=== PATIENT | female | born 1970 | race Hispanic/Latino ===

== ENCOUNTER 2016-06-23 09:40 | Inpatient (IN) | payer MEDICAID ==
[~2016-06-23] VITALS: Ht 167.6 cm; Wt 87.4 kg
[2016-06-23] VITALS (15 sets, daily range): BP systolic 116–156; BP diastolic 56–84; PULSE 84–123; RESP 13–24; O2SAT 88–95
[~2016-06-23 09:40] MED LIST: ALBU2.5V4 INHALATION; Cetirizine Hcl PO; FLUT1DIS5 IH; MONT10TA20 PO; PRE10 PO; PULM.25NEB IH; TRIA10.8 NS
[2016-06-23] MEDS ORDERED: Albuterol-Ipratropium 3 mL Inhalation Solution ONE (09:43)
--- NOTE | 2016-06-23 09:46 | ED.REPORT ---
HPI-Dyspnea / Wheezing Date of Service Jun 23, 2016 ED Provider: Dr. Lyles Pt is a 45 year old female with a hx of asthma presenting to the ED complaining of trouble breathing onset 5 days ago. Associated symptoms include clear and green sputum, cough, and wheezing. She denies fever or recent sick contacts. She reports that this is similar to her previous asthma exacerbations. Pt has hx of past intubation for asthma exacerbation. Nursing Notes Stated Complaint: ASTHMA ATTACK/SOB Chief Complaint: Asthma Exacerbation Nursing Notes Reviewed: Yes ([employer], meds not reconciled) Allergies: Coded Allergies: ibuprofen (Verified Allergy, Unknown, 10/17/15) morphine (Verified Allergy, Unknown, 03/12/13) budesonide (Verified Adverse Reaction, Intermediate, itching, 03/10/13) Scheduled ([Cetirizine Hcl]) 10 MG TABLET 10 MG PO HS Budesonide (Pulmicort) 0.25 Mg/2 Ml Nebu 0.125 MG IH BID Fluticasone/Salmeterol (Advair 500-50 Diskus) 1 Each Disk.w.dev 1 PUFF IH BID Montelukast (Singulair) 10 Mg Tablet 10 MG PO MORNING Prednisone (PredniSONE) 10 Mg Tablet 10 MG PO DAILY Scheduled PRN Albuterol Neb Soln (Albuterol Neb Soln) 2.5 Mg/3 Ml Vial.neb 2.5 MG INHALATION Q4H PRN PRN For Shortness of Breath Triamcinolone Acetonide (Nasacort) 10.8 Ml Bon Aqua 1 ML NS DAILY PRN PRN For Congestion General Time Seen by MD: 09:46 Chief Complaint Asthma attack Hx Obtained From: Patient Arrived By: Walk-in Sudden in Onset?: No Onset Occurred: 5 days ago Context of Onset: Asthma attack Symptom Duration: Since onset Severity: Current: Mild Severity: Maximum: Moderate Recent Healthcare: No recent doctor visit, No recent hospitalization Similar Sx Previous: Yes Past Medical History Past Medical History Notes: Last Admit for severe asthma October 16-2015 Past Medical History ho severe asthma ho of ICU admit w/respitory failure and prior intubation, ho lobar collapse requiring bronchoscopy on two seperate admissions Past Surgical History 1. Bilateral tubal ligation. Reports: Tubal ligation Smoking History Never Smoker Social History Alcohol Use: Denies alcohol use Drug Use: Denies drug use Other Social History: Good social support, , Local resident Ambulatory Status Independent Review of Systems Unable to Obtain ROS Patient condition (severe resp distress) Constitutional: Denies: Fever Respiratory: Reports: Prod cough, clear, Prod cough, green, Shortness of breath , Wheezing Complete sys rev & neg: except as marked. Physical Exam Initial Vital Signs Vital Signs (First) Date Time Temp Pulse Resp B/P Pulse Ox O2 Delivery O2 Flow Rate FiO2 06/23/16 09:47 36.5 84 24 156/81 93 06/23/16 09:59 Nasal Cannula 2 Initial VS: Reviewed, Vital signs abnormal (tachypneic, relative hypoxia) Head / Eyes: Atraumatic, Normocephalic, PERRL ENT: Mucous membranes moist, Conjunctiva normal, No scleral icterus Abdomen / GI: No distention Skin: Warm, Dry, No cyanosis Psychiatric: Mood/affect normal, Behavior normal, Normal thought content General/Constitutional: Awake, Alert Neck: Atraumatic, Supple Respiratory / Chest: No chest wall deformity Resp Distress / Stridor: Positive: Resp distress severe 2-3 word dyspnea. Severe bronchospasm. Tachypnic. Poor air movement. Cardiovascular: Regular rhythm Heart Rate / Rhythm: Positive: Tachycardia Neurologic: Oriented X3, Speech NL, No motor deficits, No sensory deficits Pt is mentating well, no signs of full respiratory failure. Interpretation & Diagnostics Lab Results Interpretation Result Diagram: 06/23/16 0955 06/23/16 0955 Test 06/23/16 09:55 White Blood Count 8.0th/mm3 (3.8-10.1) Red Blood Count 5.39mil/mm3 (3.90-5.20) Hemoglobin 15.3g/dL (12.0-15.6) Hematocrit 45.6% (35.0-46.0) Mean Corpuscular Volume 84.6fL (81-100) Mean Corpuscular Hemoglobin 28.4pg (27.0-35.0) Mean Corpuscular Hemoglobin Concent 33.6% (32.0-37.0) Red Cell Distribution Width 13.4% (12.3-15.4) Platelet Count 330bil/L (150-400) Neutrophils (%) (Auto) 59.1% (40-74) Lymphocytes (%) (Auto) 21.6% (14-46) Monocytes (%) (Auto) 5.9% (4-12) Eosinophils (%) (Auto) 12.3% (0-5) Basophils (%) (Auto) 0.8% (0-3) Sodium Level 141mEq/L (134-144) Potassium Level 4.0mEq/L (3.5-5.2) Chloride Level 104mEq/L (97-108) Carbon Dioxide Level 24mmol/L (18-29) Blood Urea Nitrogen 12mg/dL (6-24) Creatinine 0.78mg/dL (0.57-1.00) Estimat Glomerular Filtration Rate 113mL/min (>59) Glucose Level 107mg/dL (60-99) Calcium Level 9.2mg/dL (8.5-10.1) Total Bilirubin 0.5mg/dL (0.0-1.2) Aspartate Amino Transf (AST/SGOT) 35U/L (0-50) Alanine Aminotransferase (ALT/SGPT) 51U/L (0-32) Alkaline Phosphatase 76U/L (25-150) Total Protein 7.1g/dL (6.4-8.4) Albumin 4.5g/dL (3.4-5.0) Lab Results Interpretation: CBC normal CMP normal X-Ray Chest Interpretation Chest Xray Interpretation: IMPRESSION: Acute disease is not appreciated in the upright portable chest. Dictated by: Julián Markham M.D. on 06/23/2016 at 10:51 View: Portable, 1 view Interpretation / Wet Read by: Interpret - Radiologist Re-Eval/Medical Decision Med Decision/Clinical Course This is a 45-year-old female nonsmoker with a history of fairly severe asthma with multiple admissions to the ICU and a previous intubation in the past. Ports onset of wheezing, similar prior exacerbations on arrives in significant respiratory distress, and severely bronchospastic. She also has a mild O2 requirement. Initially she had a few word dyspnea, and was not able to complete sentences, and was visibly in respiratory distress He has not had a fever. On exam she was in significant respiratory distress initially. She received multiple rounds of beta agonist, and parents site Medrol, and magnesium. Fortunately she made steady improvement. Her respiratory distress resolved, and she was no longer visibly dyspneic, she was now able to converse normally, but she remained persistently, and significantly bronchospastic-was marked improvement in air movement. Blood work was normal. Chest x-ray is normal with no evidence of lobar collapse , no pneumonia appreciated. Patient made significant improvement and received several nebulized rounds of albuterol and Atrovent. She is markedly improved, and her distress is completely resolved, and she appears much better that she has a previous admissions - she improved to the point where we were trying to decide between inpatient and outpatient. The patient is t persistently bronchospastic, after several hours of therapy, she does not feel comfortable ready for discharge yet, and while she is markedly improved, she is still symptomatic, and still bronchospastic following a number of hours of therapy-therefore admission at this point it is reasonable. However again she is improved markedly again compared to how she presented, she is no longer in the level distress that she has had before-and is improved enough that I do not find signs that she requires PCU or CCU admission at this stage. Case was discussed with the hospitalist. She does not have an overt pneumonia, fever or findings to indicate or necessitate empiric antibiotics and emergently in the department. Soda for any decision regarding antibiotics to the hospitalist. I am not finding evidence of pneumothorax, pulmonary embolus or signs of complication. The patient remains in the low end of the oxygen saturation scale, generally satting in the low 90s, and occasionally dipping to 88-89%. Some this may be due to worsening VQ mismatching following the aggressive albuterol therapy. Patient is admitted in much improved condition. Source of Hx: Old records Re-Evaluation/Progress #1: Time of Eval: 10:20 Patient Status: Condition improved Re-Evaluation/Progress Note: Pt breathing much better. Discussed xray results. Re-Evaluation/Progress #2: Time of Eval: 11:24 Patient Status: Condition improved Re-Evaluation/Progress Note: Pt breathing improved. Re-Evaluation/Progress #3: Time of Eval: 12:16 )( Re-Eval Resp / Chest: Mild wheezing Re-Evaluation/Progress Note: Pt feeling much better, better air movement. Consultation : Referral / Consult Name: Rochelle Perez MD Consulted With: Hospitalist Call Returned at: 14:27 Computer Aide: Will see patient, Agrees with plan, Accepts admit Differential Diagnosis: Positive: Asthma Counseled Regarding: Diagnosis, Lab results, Need for follow-up, When/why to return to ED Discharge & Departure Impression: Primary Impression: Asthma exacerbation Additional Impression: Hypoxia Disposition: Home Discharge Condition All VS Reviewed: Yes Condition: Improved Referrals: Aidan Lepe MD (PCP) Humberto Attestation Portions of this note were transcribed by Tata Cunha. I, Dr. Lyles personally performed the history, physical exam and medical decision-making; I reviewed and confirmed the accuracy of the information in the transcribed note. Signed by: Humberto Connor, 06/23/2016 and 1427. copies to: Aidan Lepe MD, Matthew F MD Jun 23, 2016 09:46 TATA CUNHA Jun 23, 2016 09:51
[2016-06-23] MEDS ORDERED: MethylprednisoLONE Sodium Succinate 62.5 mg/mL 2 mL Inj IVPUSH ONE (09:50)
[2016-06-23] MEDS ORDERED: Albuterol-Ipratropium 3 mL Inhalation Solution NEB ONE (09:50)
[2016-06-23] MEDS ORDERED: Albuterol 2.5 mg/3 mL Inhalation Solution NEB ONE ×5 (09:50→15:45)
[2016-06-23] MEDS ORDERED: Magnesium Sulf 2 Gm/50mL Water 2 GM in IV Premix 1 EACH IV ONE (09:50)
[2016-06-23] MEDS ORDERED: 0.9% Sodium Chloride 100 ML ONE (09:51)
[2016-06-23 10:10] LABS: BASOPHILS % (AUTO) 0.8 % (0-3); EOSINOPHILS % (AUTO) 12.3 % (0-5); MONOCYTES % (AUTO) 5.9 % (4-12); Mean Corpuscular Hemoglobin 28.4 pg (27.0-35.0); Mean Corpuscular Volume 84.6 fL (81-100); NEUTROPHILS % (AUTO) 59.1 % (40-74); Platelet Count 330 bil/L (150-400)
--- NOTE | 2016-06-23 10:53 | DRSVH ---
PROCEDURE: X-RAY CHEST ONE VIEW, PORTABLE ([id number]) INDICATIONS: SOB TECHNIQUE: One view of the chest was acquired. COMPARISON: None. FINDINGS: Surgical changes and devices: air quality consultant leads are seen over the chest. Lungs and pleura: No pleural effusions or pneumothorax. Lungs are clear. Mediastinum: Mediastinal contours appear normal. Heart size is normal. Bones and chest wall: No suspicious bony lesions. Overlying soft tissues appear unremarkable. IMPRESSION: Acute disease is not appreciated in the upright portable chest. Dictated by: Julián Mrakham M.D. on 06/23/2016 at 10:51 Approved by: Julián Markham M.D. on 06/23/2016 at 10:51
[2016-06-23] MEDS ORDERED: Polyethylene Glycol (PEG) 17 Gm Powder PO PRN (15:30)
[2016-06-23] MEDS ORDERED: Alum-Mag Hydrox-Simeth 30 mL Suspension PO PRN (15:30)
[2016-06-23] MEDS: Albuterol-Ipratropium 3 mL Inhalation Solution NEB SCH ×2 (16:00→20:18)
--- NOTE | 2016-06-23 16:05 | NUR ---
Admit Pt comes via gurney but is able to move over to new bed independently. 1L NC denies SOB at rest. Endorses SOB with any exertion. A&OX4. Denies CP, Nausea. Endorses pain in back and neck most likely related to sleeping in chair. IV Left AC patent. Ambulates independently with steady gait although endorses dizziness on standing. Pt understands how to use call light and agrees to use Call light upon getting out of bed. Care continues
[2016-06-23] MEDS ORDERED: MethylprednisoLONE Sodium Succinate 40 mg/mL Inj IVPUSH SCH (16:30)
--- NOTE | 2016-06-23 16:40 | PCM.HPMED ---
Subjective Date of Service Jun 23, 2016 Primary Provider: Admitting Physician: oRchelle Perez MD Primary Care Physician: Aidan Lepe MD Attending Physician: Rochelle Perez MD Admit Status: From the Emergency Department Chief Complaint: Asthma exacerbation History of Present Illness: She has had 4 admissions over the last 6 years for asthma. She has been intubated once in the past. She says she has never seen an gopherman but wants to know more about why she keeps getting this. Her last episode in September was 10 days in the hospital eventually she experienced left lower lung collapse from mucous plugging that required bronchoscopy to clear. This episode has been going on for 5 days with increasing shortness breath and coughing. Finally the treatments seemed to stop working and she has not been able to sleep for the last 2 nights. In the emergency department she received magnesium, steroids, albuterol with good effect. Her O2 sat is 90-92% on room air, dropping into the 80s with exertion on room air. There has been no fever and the chest x-ray shows no pneumonia. Review of Systems: Positive for shortness of breath, wheezing, coughing for 5 days. Negative for fevers, chills, sweats, chest pain, dull pain, nausea, vomiting, diarrhea, blood in stool, dysuria, seizures, rash, joint pain, back pain, hearing loss, new allergies. Allergies Coded Allergies: ibuprofen (Verified Adverse Reaction, Severe, Shortness of Breath, 06/23/16 ) morphine (Verified Adverse Reaction, Severe, Hallucinations, 06/23/16) budesonide (Verified Adverse Reaction, Intermediate, itching, 06/23/16) Home Medications Albuterol by nebulizer Prednisone taper currently at "4 pills "daily Cetirizine 10 mg today Twice a day inhaler that is "not Advair ". PMH PMH Asthma Left lower lobe mucous plugging Prediabetes Tubal ligation Surgical History Bilateral tubal ligation Family History Family History Mother alive history of asthma hypertension Father lung cancer 3 sisters one with asthma 5 brothers healthy Social History Hx Alcohol Use: No Hx Substance Use: No Hx Tobacco Use: No Smoking Status: Never Smoker Additional Information Primary care is by Dr. 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 Pupils are equally round and reactive to light and accommodation. Extraocular muscles are intact. Sclera are pink and nonicteric. No lymph nodes are felt head, neck, supraclavicular area. JVD is less than 6 cm. No carotid bruits are heard. Heart is regular rate and rhythm without murmur. Lungs have wheezing throughout. No crackles heard. Abdomen is soft, bowel sounds positive, nontender, no organomegaly. Breast/pelvic/rectal exams are deferred to primary care office. Neuro exam without noticeable deficit. Reflexes are normal. There is no tremor. Cranial nerves II through XII tested intact. Skin without rash or jaundice. Lab and Diagnostics Result Diagram: 06/23/1695406/23/16 0955 X-Rays, CTs and MRIs X-RAY CHEST ONE VIEW, PORTABLE ([id number]) INDICATIONS: SOB TECHNIQUE: One view of the chest was acquired. COMPARISON: None. FINDINGS: Surgical changes and devices: hybrid corn breeder leads are seen over the chest. Lungs and pleura: No pleural effusions or pneumothorax. Lungs are clear. Mediastinum: Mediastinal contours appear normal. Heart size is normal. Bones and chest wall: No suspicious bony lesions. Overlying soft tissues appear unremarkable. IMPRESSION: Acute disease is not appreciated in the upright portable chest. Dictated by: Julián Markham M.D Assessment & Plan 1 - Asthma Exacerbation/Acute Bronchospasm -Continue IV Solu-Medrol -Continue nebulized albuterol -Continue oxygen -Continue pulmonary toilet to try to avoid mucus plugging -Vest and flutter valve per RT. -Begin guaifenesin and consider antibiotic therapy/respiratory viral testing 2 - History of Mucous Plugging/Lung Collapse -Early pulmonary toilet attention from RT with potential vest use and flutter valve. -Consult pulmonology if not improving readily. -Guaifenesin as mucolytic effect 3 - History of Prediabetes -It is not clear if this is a steroid/chemical diabetes effect or DM type II. -Check A1c. Rochelle Murray MD, MD Jun 23, 2016 16:24
[2016-06-23] MEDS: 0.9% Sodium Chloride 1,000 ML IV SCH (17:12)
[2016-06-23] MEDS: Albuterol 2.5 mg/3 mL Inhalation Solution NEB PRN ×3 (20:18→23:13)
[2016-06-23] MEDS: guaiFENesin 20 mg/mL 10 mL Syrup PO PRN (23:03)
[2016-06-23] MEDS: MethylprednisoLONE Sodium Succinate 40 mg/mL Inj IVPUSH SCH (23:29)
--- NOTE | 2016-06-23 23:39 | NUR ---
SOB Pt having SOB while rest and on exertion. Breathing Tx administered by RT Q1Hr and Solu-medrol q6. Pt is currently on 7LPM oxymask and saturating low 90's. Upper lung sounds are wheezy and coarse throughout. Will continue to monitor.
[2016-06-24] VITALS (14 sets, daily range): BP systolic 91–137; BP diastolic 57–73; PULSE 112–147; RESP 12–30; O2SAT 91–97
--- NOTE | 2016-06-24 00:10 | ABG ---
DateTimeAnalyzed 00:04:00 -_ pH ____7.324 - 7.350 7.450 pCO2 ___40.4__ -mmHg 35.0 45.0 pO2 ___61.7__ -mmHg 69.0 116 HCO3- ___20.4__ -mmol/L 22.0 26.0 ABE ___-4.9__ -mmol/L -2.0 2.0 tHb ___15.1__ -g/dL O2Hb ___88.4__ -% COHb ____0.5__ -% MetHb ____0.9__ -% sO2 ___89.7__ -% FIO2 ___50.0__ -% Drawn By blf - Date/Time Notified____ 00:09:00 -_ Spontaneous_RR ___24.0__ -b/min Liter_Flow ____8.0__ -L/min Oxygen Device 1 _oxy mask - Notified By BLF - Notified Whom ___DR. FUIMAONO - B 751 -mmHg tO2 ___18.7__ -Vol% OrderingPhysicianInitials mf - Emigdio test _Positive -
[2016-06-24] MEDS: Albuterol-Ipratropium 3 mL Inhalation Solution NEB SCH ×7 (00:37→19:34)
[2016-06-24] MEDS: Albuterol 2.5 mg/3 mL Inhalation Solution NEB PRN ×8 (00:37→19:35)
--- NOTE | 2016-06-24 01:14 | ABG ---
DateTimeAnalyzed 01:09:00 -_ pH ____7.289 - 7.350 7.450 pCO2 ___47.3__ -mmHg 35.0 45.0 pO2 334 -mmHg 69.0 116 HCO3- ___22.0__ -mmol/L 22.0 26.0 ABE ___-4.4__ -mmol/L -2.0 2.0 tHb ___15.2__ -g/dL O2Hb ___98.2__ -% COHb ____0.3__ -% MetHb ____1.0__ -% sO2 ___99.5__ -% FIO2 ___75.0__ -% Pressure_Support ___14.0__ -cmH2O PEEP ____6.0__ -cmH2O Set_RR ___10.0__ -b/min Drawn By blf - Date/Time Notified____ 01:13:00 -_ Spontaneous_RR ___28.0__ -b/min Oxygen Device 1 ____BIPAP - Notified By blf - Notified Whom ___Dr. Fuimaono - B 751 -mmHg tO2 ___21.8__ -Vol% OrderingPhysicianInitials mf - Emigdio test _Positive -
[2016-06-24] MEDS ORDERED: Propofol 10,000 mCg/mL 100 mL Inj ONE (01:35)
[2016-06-24] MEDS ORDERED: fentaNYL-PF 50 mCg/mL 2 mL Inj IVPUSH PRN (01:45)
[2016-06-24] MEDS: fentaNYL 2,500 mCg/250 mL 2,500 MCG in IV Premix 1 EACH IV PRN ×2 (01:51→23:35)
[2016-06-24] MEDS ORDERED: Cisatracurium 2,000 mCg/mL 10 mL Inj ONE (01:52)
--- NOTE | 2016-06-24 02:00 | PCM.EDPN ---
ED Note Date of Service Jun 24, 2016 Procedures Intubation : Intubation Procedure: Called urgently by Dr. Lebron to intubate this patient. She was failing BiPAP treatment for asthma and becoming more and more acidotic. Potassium drawn within the last 24 hours was 4.0. She has no problems in the past with sedation or intubation. Dr. Lebron to assume responsibility for ongoing sedation. Procedure Performed by: ED physician Consent / Setup / Site Prep: Consent from patient, No consent - emergent, Time-out performed, Oxygen administered, Pulse oximeter applied, rigger chief applied, Hand hygiene observed, Stand sterile technique Patient Position: Head extended Blade / ET Tube / Route: Mac, ET tube cuffed, Route: oral Procedural Sedation/Analgesia: Sedation: Etomidate (20 mg) Neuromuscular Agent: Succinylcholine (100 mg) ET Confirmation: Direct visualization, BS equal (no gastric bubbling), End tidal CO2 device, CXR, Rising O2 sat Secured / Marked: ET tube device Complications: None Post-Procedure: Condition improved, Tolerated procedure well, Patient stable Phong De Los Santos MD Jun 24, 2016 02:00
[2016-06-24] MEDS: Cisatracurium 200,000 mCg/100 mL NS IV SCH ×2 (02:31)
[2016-06-24 03:17] LABS: APPEARANCE,URINE HAZY (CLEAR,HAZY); COLOR,URINE DARK YELLOW (YELLOW); OCCULT BLOOD,URINE TRACE (NEGATIVE); UROBILINOGEN,URINE NORMAL (NORMAL)
--- NOTE | 2016-06-24 03:49 | NUR ---
Resp Patient transferred to CCU for intubation. ED MD at bedside. Etomadate and Succ given. Propofol and Fentanyl ordered for sedation. Nimbex ordered, bolus dose administered and bag hung. BIS set up. Lung sounds wheezey, very tight, RT able to suction sputum for lab, none since. Nebs and Steroids both on emar. HR decreased from 150s to 120s, bp drops to MAP around 65. Patient looks much more comfortable on vent. Awaiting AM ABG results. See flowsheet for more details.
[2016-06-24 04:05] LABS: BASOPHILS % (AUTO) 0.1 % (0-3); EOSINOPHILS % (AUTO) 0.1 % (0-5); MONOCYTES % (AUTO) 0.8 % (4-12); Mean Corpuscular Hemoglobin 27.9 pg (27.0-35.0); Mean Corpuscular Volume 84.8 fL (81-100); NEUTROPHILS % (AUTO) 94.4 % (40-74); Platelet Count 313 bil/L (150-400)
--- NOTE | 2016-06-24 04:07 | ABG ---
DateTimeAnalyzed 04:00:00 -_ pH ____7.321 - 7.350 7.450 pCO2 ___41.6__ -mmHg 35.0 45.0 pO2 ___76.2__ -mmHg 69.0 116 HCO3- ___20.9__ -mmol/L 22.0 26.0 ABE ___-4.5__ -mmol/L -2.0 2.0 tHb ___14.2__ -g/dL O2Hb ___93.2__ -% COHb ____0.6__ -% MetHb ____0.9__ -% sO2 ___94.6__ -% FIO2 ___50.0__ -% PEEP ____8.0__ -cmH2O Set_RR ___22.0__ -b/min Vt __360.0__ -L Drawn By cf - Date/Time Notified____ 04:06:00 -_ Spontaneous_RR ___22.0__ -b/min Oxygen Device 1 VENTILATOR - Notified By cf - Notified Whom ___Dr. fuimaono - B 751 -mmHg tO2 ___18.6__ -Vol% Emigdio test _Positive -
[2016-06-24] MEDS: Propofol Inj 1,000,000 MCG in IV Premix 1 EACH IV SCH ×5 (05:00→21:34)
[2016-06-24] MEDS: 0.9% Sodium Chloride 1,000 ML IV SCH ×3 (05:01→23:08)
[2016-06-24] MEDS: MethylprednisoLONE Sodium Succinate 40 mg/mL Inj IVPUSH SCH ×3 (05:03→17:31)
--- NOTE | 2016-06-24 06:19 | NUR ---
OU Min UO since arrival in CCU and mercado was placed. notified. Orders received for labs. Continue to monitor.
--- NOTE | 2016-06-24 09:17 | DRSVH ---
PROCEDURE: X-RAY CHEST ONE VIEW, PORTABLE ([id number]) INDICATIONS: TUBE PLACEMENT TECHNIQUE: One view of the chest was acquired. COMPARISON: None. FINDINGS: Surgical changes and devices: ETT has been placed tip projecting over the level of the inferior clavi tl. Lungs and pleura: No pleural effusions or pneumothorax. Lungs are clear. Mediastinum: Mediastinal contours appear normal. Heart size is normal. Bones and chest wall: No suspicious bony lesions. Overlying soft tissues appear unremarkable. IMPRESSION: Placement of ETT. No acute cardiopulmonary process. Dictated by: Gavin Grover [facility] Interpreted: Arielle Jordan MD on 06/24/2016 at 9:16 Transcribed by: CHERRI on 06/24/2016 at 9:16 Approved by: Arielle Jordan MD, PhD on 06/24/2016 at 11:47
--- NOTE | 2016-06-24 09:30 | NUR ---
NUTRITION ASSESSMENT Assess: 45 YO F admitted to CCU for asthma exacerbation requiring intubation. TF to start today. PMHX: Asthma, left lower lobe mucous plugging. DIET: NPO. LABS: Reviewed. Glu 163 MEDICATIONS: Nimbex, Propofol at 20.2 ml/hr providing 533 kcal/day, Fentanyl, Solu-medrol GI: No BM noted yet. SKIN: Wound eval pending. No skin issues per wound consult. WEIGHT: 91.8 kg, BMI 32.7 kg/m2, Admit wt: 84.09 kg, IBW: 59.1 kg. ESTIMATED NEEDS: VENT/BMI Calories: 7578-1404 kcal/day (20-22 kcal/kg BW) Protein: 89-106 g/day (1.5-1.8 g/kg IBW) NUTRITION DIAGNOSIS: 1) Inadequate oral intake related to decreased ability to consume sufficient energy as evidenced by NPO/Vent status. INTERVENTION: 1) Recommend enteral nutrition of Jevity 1.5 starting at 10 ml/hr, once tolerance established, advance 10 ml q 6 hr to goal rate of 45 ml/hr. At goal TF will provide 1485 kcal (TF + Propofol = 2018 kcal), 63 g protein; meeting 100% calorie, 71% protein needs. Signed orders placed in chart per V.OZahraa Arango. 2) Once TF tolerance established, add 1 packet of Prosource protein TID to provide a total of 96 g protein; meeting 100% of protein needs. 3) Adjust TF goal based on daily propofol rate. MONITOR/EVALUATE: NPO/Vent status, labs, wounds, TF start, GI/nutrition status. Follow per high nutrition risk guidelines.
--- NOTE | 2016-06-24 10:16 | ABG ---
DateTimeAnalyzed 10:09:00 -_ pH ____7.175 - 7.350 7.450 pCO2 ___65.4__ -mmHg 35.0 45.0 pO2 283 -mmHg 69.0 116 HCO3- ___23.2__ -mmol/L 22.0 26.0 ABE ___-6.4__ -mmol/L -2.0 2.0 tHb ___14.2__ -g/dL O2Hb ___98.0__ -% COHb ____0.1__ -% MetHb ____1.1__ -% sO2 ___99.2__ -% FIO2 ___70.0__ -% PRVC 12 - PEEP ___10.0__ -cmH2O Vt __400.0__ -L Drawn By gj - Date/Time Notified____ 10:15:00 -_ Spontaneous_RR ___12.0__ -b/min Oxygen Device 1 VENTILATOR - Notified By gj - Notified Whom ___PARIMI - B 750 -mmHg tO2 ___20.1__ -Vol% Emigdio test _Positive -
--- NOTE | 2016-06-24 11:04 | PCM.PNMED ---
Subjective Date of Service Jun 24, 2016 Subjective Ms. Lissette Ash is a 45 year old lad with past medical history significant for 4 admissions over the last 6 years for asthma, with 3-4 prior intubations. She stated upon admission that she has never seen an industrial mechanic but wants to know more about why she keeps getting this. Her last episode in September was 10 days in the hospital eventually she experienced left lower lung collapse from mucous plugging that required bronchoscopy to clear. This episode has been going on for 5 days with increasing shortness breath and coughing. Finally the treatments seemed to stop working and she has not been able to sleep for the last 2 nights. In the emergency department she received magnesium, steroids, albuterol with good effect. Her O2 sat is 90-92% on room air, dropping into the 80s with exertion on room air. There has been no fever and the chest x-ray shows no pneumonia. Shortly thereafter patient was requiring increased amounts of oxygen to maintain saturations, and was subsequently intubated. Positive for shortness of breath, wheezing, coughing for 5 days. Negative for fevers, chills , sweats, chest pain, dull pain, nausea, vomiting, diarrhea, blood in stool, dysuria, seizures, rash, joint pain, back pain, hearing loss, new allergies. Prior home medications include Prednisone taper currently at "4 pills "daily, Albuterol by nebulizer, Cetirizine 10 mg today and Twice a day inhaler that is "not Advair ". Non smoker never smoker. Overnight events: No other acute overnight events aside from intubation. Today: Ventilatory settings were adjusted to increase rate a lot for increased expiratory time and increase tidal volumes. She remains intubated and sedated cisatracurium, fentanyl and propofol. Exam Vital Signs Vital Sign - Last Date Time Temp Pulse Resp B/P Pulse Ox O2 Delivery O2 Flow Rate FiO2 06/24/16 09:00 117 137/66 96 70 06/24/16 02:35 36.8 22 Mechanical Ventilator 06/23/16 23:13 8.00 Intake and Output 06/23/16 06/23/16 06/24/16 Cumulative From/Thru 15:00 23:00 07:00 06/23/16 09:47 - 06/24/16 06:52 Intake Total 800 ml 438 ml 1238 ml Output Total 500 ml 50 ml 550 ml Balance 300 ml 388 ml 688 ml Intake Oral 800 ml 800 ml IV Total 438 ml 438 ml Output Urine Total 500 ml 50 ml 550 ml Exam intubated and sedated . Pupils are equally round and reactive to light and accommodation. Extraocular muscles are intact. Sclera are pink and nonicteric. No lymph nodes are felt head, neck, supraclavicular area. JVD is less than 6 cm. No carotid bruits are heard. Heart is regular rate and rhythm without murmur. Lungs have wheezing throughout. No crackles heard. Abdomen is soft, bowel sounds positive, nontender, no organomegaly. Breast/pelvic/rectal exams are deferred to primary care office. Neuro exam without noticeable deficit. Reflexes are normal. There is no tremor. Cranial nerves II through XII tested intact. Skin without rash or jaundice. IVs and Medications Medications Reviewed: Medications were reviewed in detail Lab and Diagnostics Result Diagram: 06/24/1634206/24/16342 X-Rays, CTs and MRIs X-RAY CHEST ONE VIEW, PORTABLE ([id number]) INDICATIONS: SOB TECHNIQUE: One view of the chest was acquired. COMPARISON: None. FINDINGS: Surgical changes and devices: console assembler leads are seen over the chest. Lungs and pleura: No pleural effusions or pneumothorax. Lungs are clear. Mediastinum: Mediastinal contours appear normal. Heart size is normal. Bones and chest wall: No suspicious bony lesions. Overlying soft tissues appear unremarkable. IMPRESSION: Acute disease is not appreciated in the upright portable chest. Dictated by: Julián Markham M.D Assessment & Plan Ms. Lissette Ash is a 45 year old lad with past medical history significant for 4 admissions over the last 6 years for asthma, with 3-4 prior intubations. Prior to admission she had 5 days with increasing shortness breath and coughing. Her O2 sat is 90-92% on room air, dropping into the 80s with exertion on room air. There has been no fever and the chest x-ray shows no pneumonia. Shortly thereafter patient was requiring increased amounts of oxygen to maintain saturations, and was subsequently intubated 1. Acute hypercapneic and hypoxic respiratory failure, with mechanical ventilatory dependence, not present on admission. Active. - due to asthma exacerbation and possibly viral vs bacterial pneumonia. - Not on oxygen at home. - Patient's daughter Susana reports the patient has been intubated 3-4 other times in the past with a minimum of one week stay at the hospital during these times. - Remains intubated and sedated. - ABG as above. - Chest x-ray as above. - Currently not on antibiotics.procalcitonin negative - Sputum culture pending, viral PCR pending, MRSA swab pending. - Solu-Medrol 60mg every 6H will switch to 125mg every 8H. - IgE pending, however results may not be totally clear as the patient was on prednisone before admission. 2. Asthma Exacerbation/Acute Bronchospasm - Continue IV Solu-Medrol - Continue nebulized albuterol scheduled every 4 hours and every hour when necessary. - Continue oxygen - Continue pulmonary toilet to try to avoid mucus plugging - Vest and flutter valve per RT. - Begin guaifenesin and consider antibiotic therapy/respiratory viral testing - ICU team has been consult, time and recommendations greatly appreciated. 3. History of Mucous Plugging/Lung Collapse - Early pulmonary toilet attention from RT with potential vest use and flutter valve. - Consult pulmonology if not improving readily. - Guaifenesin as mucolytic effect 4. History of Prediabetes - It is not clear if this is a steroid/chemical diabetes effect or DM type II. - Check A1c. Acetaminophen for mild pain when necessary. Bowel regimen Senna and MiraLAX scheduled and PRN. Zofran when necessary for nausea and vomiting. SubQ heparin held for now, on Lovenox. SCDs in place. High-risk medications: ICU: Vent settings: 40 FiO2, PEEP of 12, respiratory rate , tidal volume 500. ABG: As above I/Os: Lines: Drips: Propofol, fentanyl, cisatracurium. Disposition: Likely here for 3-4 midnights possibly longer. Dependent upon asthma exacerbation and respiratory status. Will be discharged to home when medically stable Pain Evaluation: Adequate Pain Control VTE Mechanical Devices: Intermittant Pneumatic CD Attending Statement The patient was seen and examined together with Dr. Gill on 06/24/2016 and I agree with the history, exam and plan as outlined in the note above. . GETACHEW GILL DO Jun 24, 2016 11:04 Germán Samuels MD Jun 24, 2016 18:39
--- NOTE | 2016-06-24 12:25 | ABG ---
DateTimeAnalyzed 12:20:00 -_ pH ____7.246 - 7.350 7.450 pCO2 ___54.8__ -mmHg 35.0 45.0 pO2 ___77.0__ -mmHg 69.0 116 HCO3- ___23.0__ -mmol/L 22.0 26.0 ABE ___-4.6__ -mmol/L -2.0 2.0 tHb ___13.6__ -g/dL O2Hb ___93.2__ -% COHb ____0.5__ -% MetHb ____1.0__ -% sO2 ___94.6__ -% FIO2 ___40.0__ -% PRVC 12 - PEEP ___12.0__ -cmH2O Vt __500.0__ -L Drawn By gj - Date/Time Notified____ 12:25:00 -_ Spontaneous_RR ___12.0__ -b/min Oxygen Device 1 VENTILATOR - Notified By gj - Notified Whom ___PARIMI - B 749 -mmHg tO2 ___17.9__ -Vol% Emigdio test _Positive -
[2016-06-24] MEDS ORDERED: Epinephrine Racemic 2.25% 0.5 mL Inhalation Solution NEB ONE (12:40)
[2016-06-24] MEDS: Chlorhexidine 0.12% 15 mL Oral Solution MT SCH ×3 (13:06→21:11)
--- NOTE | 2016-06-24 13:24 | DRSVH ---
PROCEDURE: X-RAY CHEST ONE VIEW, PORTABLE ([id number]) INDICATIONS: high vent pressures/ r/o pneumothorax TECHNIQUE: One view of the chest was acquired. COMPARISON: [facility], CR, XR CHEST 1VW (PORTABLE), 06/24/2016, 1:35. FINDINGS: Surgical changes and devices: ETT tip projected 5 cm above the sheng. Nasogastric tube is in place tip traversing the GE junction. Lungs and pleura: No pleural effusions or pneumothorax. Lungs are clear. Mediastinum: Mediastinal contours appear normal. Heart size is normal. Bones and chest wall: No suspicious bony lesions. Overlying soft tissues appear unremarkable. IMPRESSION: 1. Support lines and tubes as above. No acute cardiopulmonary disease. Dictated by: Gavin Grover [facility] Interpreted: Arielle Jordan MD on 06/24/2016 at 13:22 Transcribed by: CHERRI on 06/24/2016 at 13:23 Approved by: Arielle Jordan MD, PhD on 06/24/2016 at 17:02
[2016-06-24] MEDS ORDERED: Glucose 40% Oral Gel 15 Gm Tube PO PRN (15:00)
[2016-06-24] MEDS: Levalbuterol 1.25 mg/0.5mL Inhalation Solution NEB PRN ×2 (15:30→17:49)
--- NOTE | 2016-06-24 15:49 | NUR ---
Wound Care Pressure ulcer protocol received. Pt seen at bedside, intubated on ccu bed, no pressure related skin issues at this time.
[2016-06-24] MEDS: Insulin LISPRO 300 Unit/3 mL Inj SUBQ SCH ×2 (17:51→21:14)
--- NOTE | 2016-06-24 18:03 | NUR ---
P: Resp, Hemodynamics,Neuro, Nutrition, Social I,E: Pt continues on the vent, she has had high peak pressures the high 50's but now low 50's. Vent settings have been adjusted today per pulmonology. sats are low to mid 90's on 40% FIO2 currently. Nimbex continues at 1mcg and she is 2/4 on the TOF. BIS readings 50 -60's. Fentanyl continues at 100mcg. Pt has low UOP this evening, only 200cc urine out for today. She has NS at 80cc/hr infusing as well as sedation. SBP in the 90's-110's. HR in the 120's Sinus. Pt remains sedated and paralysed on the vent. used car salesperson has ordered trickle tube feeds to start today. Pt has supportive family who have been at the bedside throughout the day. was able to update daughter and earlier and I updated more of the family this evening.
--- NOTE | 2016-06-24 22:38 | CONS ---
[address] [address] CONSULTATION REPORT PATIENT: GAL ESCUDERO : 1970 MR#: [id number] ADMIT: 06/23/2016 JOB ID: [id number] DATE OF SERVICE: 06/24/2016 PULMONARY CRITICAL CARE CONSULTATION NOTE: The patient is a 45-year-old woman seen in consultation at the request of Dr. Samuels for acute respiratory failure in the setting of asthma exacerbation. HISTORY OF PRESENT ILLNESS: The patient is intubated by the time I met her so all of the history is obtained per review of medical records and talking to her daughter. The patient has had asthma for a long time and was last intubated because of her asthma four years ago. She has pretty much an annual hospitalizations because of asthma exacerbation. As far as her home regimen, her family is not entirely certain but it looks like she uses ProAir regularly and she has another inhaler, they do not know the name of this, that she does not use quite as regularly. It does not look like she sees a rn forensic for her asthma. According to her daughter, she frequently takes prednisone for asthma exacerbations. The patient has apparently been having worsening shortness breath for a couple of weeks. She was started on prednisone p.o. a few days ago, but despite that continued to get worse and presented to the emergency department here at [facility] with increasing cough, shortness of breath and wheezing. They started her on prednisone and used to BiPAP to try to correct her hypercarbia. Despite BiPAP her, acidosis and hypercarbia continued to get worse and the patient got intubated in the early hours of this morning, around 2 a.m. Since then, we have had difficulties with respiratory acidosis, high peak pressures, auto PEEP. Past medical history, social history, family history and review of systems could not be obtained directly from the patient since she is intubated. PAST MEDICAL HISTORY: Reportedly includes asthma. SOCIAL HISTORY: She is reportedly a nonsmoker, never smoker. PHYSICAL EXAMINATION: Vital signs reviewed. T-max 37.4, pulse 123, respirations 14, sats 95% on 40% FiO2, BP 98/72. General: Intubated, sedated, unresponsive, paralyzed. Neck: No cervical lymphadenopathy. HEENT: Pupils equal and reactive. Chest: Bilateral diffuse wheezing and prolonged exhalation. Abdomen: Soft, nontender. Heart: Regular rate and rhythm. Extremities: No cyanosis, clubbing, edema. Skin: No rashes. LABORATORIES: Reviewed. WBC 11.8 today, she had 12% eosinophils on admission which have clearer today. Chemistry also reviewed and notable for metabolic acidosis with bicarb of 17. Lactate of 1, magnesium of 2.2, procalcitonin 0.04. Cultures: Sputum culture negative so far. Respiratory viral PCR panel is completely negative. Chest x-ray is clear completely on repeat checks. No pneumothorax, mucus plugging, etc. Arterial blood gas checked this morning showed pH of 7.32, pCO2 of 41, most recent blood gas shows pH of 7.24, pCO2 of 54, bicarb 23, pO2 of 77. ASSESSMENT AND RECOMMENDATIONS: 1. Acute hypoxic hypercarbic respiratory failure. 2. Acute asthma exacerbation. This 45-year-old woman with longstanding severe persistent asthma that appears poorly controlled at baseline is presenting with an acute episode of asthma, failing bilevel positive airway pressure, requiring mechanical ventilation. She is currently on the ventilator FiO2 of 40%, PEEP of 12 cm, respiratory rate 14 and tidal volume of 450. We have had to make multiple adjustments to this over the course of the day to try to manage her acidosis better. At this point, she appears relatively stable except for high peak pressures in the 50s, plateau pressure around 30-32, total measured PEEP of around 18 with set PEEP of 12. I increased her Solu-Medrol from 60 to 125 mg IV q.8 h. She is also getting DuoNeb q.4 h. and albuterol nebs q.2 h. p.r.n. I added Xopenex because she appears to be quite tachycardic. We are checking immunoglobulin E level to rule out other possibilities such as allergic bronchopulmonary aspergillosis. This is still pending. She did have significant eosinophilia. Sputum cultures are negative and procalcitonin is negative so there is no indication for antibiotics. I also gave her racemic epinephrine neb, but this did not seem to make much difference to respiratory status. She is on appropriate deep venous thrombosis and gastrointestinal prophylaxis and she is a FULL CODE. Her family is at the bedside and was updated, her and daughter. CRITICAL CARE TIME: Ninety minutes.
[2016-06-25] VITALS (13 sets, daily range): BP systolic 98–120; BP diastolic 53–63; PULSE 85–112; RESP 14; O2SAT 94–96
[2016-06-25] MEDS: Albuterol-Ipratropium 3 mL Inhalation Solution NEB SCH ×7 (00:03→23:55)
[2016-06-25] MEDS: Albuterol 2.5 mg/3 mL Inhalation Solution NEB PRN (00:03)
--- NOTE | 2016-06-25 00:25 | ABG ---
DateTimeAnalyzed 00:17:49 -_ pH ____7.297 - pCO2 ___46.8__ -mmHg pO2 ___90.7__ -mmHg HCO3- ___22.9__ -mmol/L ABE ___-3.5__ -mmol/L tHb ___12.6__ -g/dL O2Hb ___96.4__ -% COHb ____0.5__ -% MetHb ____0.5__ -% sO2 ___97.4__ -% FIO2 ___40.0__ -% PRVC 14 - PEEP ___12.0__ -cmH2O Set_RR 14 -b/min Vt __450.0__ -L Drawn By MM - Date/Time Notified____ 00:25:00 -_ Spontaneous_RR 14 -b/min Oxygen Device 1 VENTILATOR - Notified Whom RN - B 750 -mmHg K+ ____4.3__ -mmol/L tO2 ___17.2__ -Vol% Emigdio test N/A -
[2016-06-25] MEDS: Propofol Inj 1,000,000 MCG in IV Premix 1 EACH IV SCH ×6 (01:43→20:41)
[2016-06-25] MEDS: Chlorhexidine 0.12% 15 mL Oral Solution MT SCH ×6 (01:44→20:40)
[2016-06-25] MEDS: MethylprednisoLONE Sodium Succinate 40 mg/mL Inj IVPUSH SCH (01:47)
[2016-06-25] MEDS: Cisatracurium 200,000 mCg/100 mL NS IV SCH ×2 (02:08)
[2016-06-25] MEDS: Insulin LISPRO 300 Unit/3 mL Inj SUBQ SCH ×4 (02:18→20:30)
[2016-06-25 05:55] LABS: BASOPHILS % (AUTO) 0 % (0-3); EOSINOPHILS % (AUTO) 0.1 % (0-5); MONOCYTES % (AUTO) 3.5 % (4-12); Mean Corpuscular Hemoglobin 27.9 pg (27.0-35.0); Mean Corpuscular Volume 88.4 fL (81-100); NEUTROPHILS % (AUTO) 91.6 % (40-74); Platelet Count 298 bil/L (150-400)
--- NOTE | 2016-06-25 06:15 | ABG ---
DateTimeAnalyzed 06:09:00 -_ pH ____7.277 - 7.350 7.450 pCO2 ___47.6__ -mmHg 35.0 45.0 pO2 ___96.1__ -mmHg 69.0 116 HCO3- ___21.5__ -mmol/L 22.0 26.0 ABE ___-4.9__ -mmol/L -2.0 2.0 tHb ___11.7__ -g/dL O2Hb ___95.7__ -% COHb ____0.6__ -% MetHb ____1.1__ -% sO2 ___97.4__ -% FIO2 ___40.0__ -% PRVC 14 - PEEP ___12.0__ -cmH2O Set_RR ___14.0__ -b/min Vt __450.0__ -L Drawn By MM - Date/Time Notified____ 06:14:00 -_ Spontaneous_RR ___14.0__ -b/min Oxygen Device 1 VENTILATOR - Notified Whom RN - B 755 -mmHg tO2 ___15.9__ -Vol% Emigdio test N/A -
--- NOTE | 2016-06-25 06:50 | NUR ---
BP/HR: Pt was tachy during day yesterday and BP borderline LOw was Given 2000ml of NS bolus through the night with improvement to BP and HR.
[2016-06-25] MEDS ORDERED: Lactated Ringer's 1,000 ML IV ONE (08:45)
[2016-06-25] MEDS ORDERED: Sodium Chloride LOK Flush 10 mL Syringe IVFLUSH PRN ×2 (08:45)
[2016-06-25] MEDS: MethylprednisoLONE Sodium Succinate 62.5 mg/mL 2 mL Inj IVPUSH SCH ×2 (08:47→17:04)
--- NOTE | 2016-06-25 09:37 | NUR ---
NUTRITION FOLLOW-UP: Assess: 45 YO F admitted to CCU for asthma exacerbation requiring intubation. TF started 06/24. Tolerating trickle TF rate with minimal residuals. TF to start advancing towards goal today. Nimbex to be weaned off today. No BM has been recorded yet. PMHX: Asthma, left lower lobe mucous plugging. DIET: NPO. NUTRITION SUPPORT: Jevity 1.5@10ml/hr LABS: Reviewed. Cl 111, Glu 183, Ca 8.3, ALT 34, Alb 3.2 MEDICATIONS: Nimbex (weaning down today), Propofol at 22 ml/hr providing 580 kcal/day, Fentanyl, Solu-medrol GI: No BM noted yet. SKIN: No PU per WC, Balaji 9 WEIGHT: 91.8 kg, BMI 32.7 kg/m2, Admit wt: 84.09 kg, IBW: 59.1 kg. ESTIMATED NEEDS: VENT/BMI Calories: 7282-3852 kcal/day (20-22 kcal/kg BW) Protein: 89-106 g/day (1.5-1.8 g/kg IBW) NUTRITION DIAGNOSIS: 1) Inadequate oral intake related to decreased ability to consume sufficient energy as evidenced by NPO/Vent status. --PERSISTS INTERVENTION: 1) Recommend continue to advance TF by 10 ml q 6 hr to goal rate of 45 ml/hr. At goal TF will provide 1485 kcal (TF + Propofol = 2065 kcal), 63 g protein; meeting 100% calorie, 71% protein needs. 2) Once TF tolerance established, add 1 packet of Prosource protein TID to provide a total of 96 g protein; meeting 100% of protein needs. 3) Adjust TF goal based on daily propofol rate. MONITOR/EVALUATE: NPO/Vent status, labs, TF advance/colleen, GI/nutrition status. Follow per high nutrition risk guidelines.
[2016-06-25] MEDS: Famotidine Inj 20 MG in IV Premix 1 EACH IV SCH ×2 (10:14→20:41)
[2016-06-25] MEDS: Levalbuterol 1.25 mg/0.5mL Inhalation Solution NEB PRN ×3 (10:31→18:15)
--- NOTE | 2016-06-25 10:42 | DRSVH ---
PROCEDURE: X-RAY CHEST ONE VIEW, PORTABLE ([id number]) INDICATIONS: intubated TECHNIQUE: One view of the chest was acquired. COMPARISON: [facility], CR, XR CHEST 1VW (PORTABLE), 06/24/2016, 12:39. FINDINGS: Surgical changes and devices: Stable positioning of the ETT and nasogastric tubes. Lungs and pleura: No pleural effusions or pneumothorax. Lungs are clear. Mediastinum: Mediastinal contours appear normal. Heart size is normal. Bones and chest wall: No suspicious bony lesions. Overlying soft tissues appear unremarkable. IMPRESSION: No acute cardiopulmonary disease. Dictated by: Gavin Grover [facility] Interpreted: Cindy Medley MD on 06/25/2016 at 10:42 Transcribed by: MAXIMINO on 06/25/2016 at 10:42 Approved by: Cindy Medley M.D. on 06/25/2016 at 17:22
--- NOTE | 2016-06-25 11:43 | DRSVH ---
PROCEDURE: CT ANGIO CHEST PULMONARY EMBOLISM ([id number]) INDICATIONS: respiratory failure TECHNIQUE: After the administration of intravenous contrast, 2 mm thick sections acquired from the pulmonary api misty to the posterior costophrenic angles. 3-dimensional maximum intensity projection (MIP) coronal a nd sagittal reformats were then acquired through the thorax. For radiation dose reduction, the follo wing was used: automated exposure control, adjustment of mA and/or kV according to patient size. COMPARISON: [facility], CT, CT ANGIO CHEST PE, 10/22/2015, 12:07. FINDINGS: Image quality: Excellent. Pulmonary arteries: Pulmonary arteries are normal in size, and demonstrate no intraluminal filling d efects to suggest central pulmonary embolism. Lungs and pleura: There is identified right middle lobe densities have resolved. No pleural effusions or pneumothorax. Minimal dependent changes are present within the left base. There is a 5 mm focus of groundglass like opacity within the right base. Central and peripheral airways are patent. Mediastinum: Heart size is normal, without pericardial effusion. No mediastinal or hilar adenopathy . Thoracic aorta is normal in caliber and enhancement. Esophagus is normal in caliber, without hiat al hernia. Endotracheal and nasogastric tubes are present. There are appropriate position. Bones and chest wall: No suspicious bony lesions. Ribs and thoracic spine appear intact throughout. Thyroid gland is unremarkable. No axillary or supraclavicular adenopathy. Abdomen: Visualized upper abdominal solid organs appear normal in the early arterial phase of enhanc ement. IMPRESSION: 1. No evidence of pulmonary embolism. 2. Dependent changes are present within the left base as well as a 5 mm groundglass like opacity wit hin the right base, overall nonspecific. Dictated by: Cindy Medley M.D. on 06/25/2016 at 11:36 Approved by: Cindy Medley M.D. on 06/25/2016 at 11:41
--- NOTE | 2016-06-25 12:02 | NUR ---
Social Work Note: Screen Note Data& Assessment: EMR reviewed. SW met with pt family at bedside to check in and provide SW phone number on white board for any needs, SW role explained. Lissette Ash is a 45 year old female admitted on 06/23/2016 for asthma exacerbation. Pt lives in [place] with her family and is independent at baseline. Pt requires ventilator support at this time. Pt has begun the process for AEM coverage for this hospitalization. SW provided pt family with financial assistance application as well just in case there are any other extra fees associated with pt hospitalization. Pt family denies any other needs at this time. SW to continue to follow. Plan: Pt is intubated at this time. SW to continue to follow as pt medically progresses. Pt family denies any other needs at this time. SW to continue to follow. WILVER Anders
[2016-06-25] MEDS ORDERED: 0.9% Sodium Chloride 500 ML ONE (12:16)
--- NOTE | 2016-06-25 12:54 | PROG NOTE ---
[address] [address] PROGRESS NOTE PATIENT: GAL ESCUDERO : 1970 MR#: [id number] ADMIT: 06/23/2016 JOB ID: [id number] DATE: 06/25/2016 PULMONARY/CRITICAL CARE PROGRESS NOTE: The patient is a 45-year-old woman admitted with acute hypoxic respiratory failure due to asthma exacerbation. INTERVAL HISTORY: Remains on the ventilator, on paralytics. With still having some difficulties with high peak and plateau pressures as well as auto PEEP, but these seem to be stable/slightly improved compared to yesterday. REVIEW OF SYSTEMS: Unable to obtain. PHYSICAL EXAMINATION: Vital signs reviewed. T-max of 37.5, pulse 103, respirations 14, BP 109/56. Sats 94% on 40% FiO2 and 12 cm of PEEP, tidal volume 450, respiratory rate of 14. Plateau pressure measured at 30 cm, total PEEP 18-20 with a set PEEP of 12. Peak pressures are in the 47-48 range. General: Intubated, sedated, and paralyzed. Chest: Bilateral wheezing and rhonchi heard. LABORATORIES: Reviewed. WBC up to 14.8 from 11.8 and chemistries notable for improvement in serum bicarb to 21 from 17. Procalcitonin yesterday was 0.04. Arterial blood gas from this morning shows pH of 7.27, pCO2 of 47, pO2 of 96, bicarb of 21.5. IMAGING: Chest x-ray: Clear. No infiltrates or pneumothorax. Cultures: Sputum negative. Respiratory viral PCR is negative. ASSESSMENT: 1. Acute hypoxic respiratory failure. 2. Acute asthma exacerbation. RECOMMENDATIONS: A 45-year-old woman with longstanding severe poorly-controlled asthma presenting with asthma exacerbation in respiratory failure requiring mechanical ventilation. Her acidosis persists and at the very least it is mild. Peak pressures seem to have improved compared to yesterday. Plateau pressures on auto PEEP seem unchanged. I increased her tidal volume slightly to 470 to see if this would help her acidosis, since it did not make too much of a difference to be auto PEEP or plateau pressures. I would also like to get a chest CT with contrast today looking for PE, pneumothorax, or mucus plugging that could make her asthma more refractory. Of note, labs show that her IgE level yesterday was 220. While this is not extraordinarily high, in the range that we would consider ABPA, please note that it was done after the patient had been taking steroids for a few days. In that setting, an IgE of greater than 200 is somewhat unusual. I wonder if we should consider ABPA in her because prior IgE looking back seems to be as high as in the 500s. At this point we will see if the CT shows anything like bronchiectasis that would be in keeping with ABPA. Continue Solu-Medrol 125 q.8. She is getting DuoNeb q.4 and p.r.n. albuterol and levalbuterol nebs. She got one round of racemic epinephrine neb yesterday but this did not seem to make a lot of difference. She is on appropriate DVT and GI prophylaxis. I am thinking about adding azithromycin for anti-inflammatory effect in her since much of what we are doing seems to have had no significant effect so far, although she is stable. We will also try to wean off the paralytic neuromuscular gregory today. CRITICAL CARE TIME: 60 minutes.
--- NOTE | 2016-06-25 13:20 | DRSVH ---
PROCEDURE: X-RAY CHEST ONE VIEW, PORTABLE ([id number]) INDICATIONS: CHECK LINE PLACEMENT TECHNIQUE: One view of the chest was acquired. COMPARISON: [facility], CR, XR CHEST 1VW (PORTABLE), 06/25/2016, 6:22. FINDINGS: Surgical changes and devices: Stable position ETT, nasogastric tube and right IJ CVL has been placed tip projected over the lower SVC. Lungs and pleura: No pleural effusions or pneumothorax. Lungs are clear. Mediastinum: Mediastinal contours appear normal. Heart size is normal. Bones and chest wall: No suspicious bony lesions. Overlying soft tissues appear unremarkable. IMPRESSION: Interval placement of right IJ CVL otherwise stable chest. Dictated by: Gavin Grover RRA Interpreted: Cindy Medley MD on 06/25/2016 at 13:19 Transcribed by: MAXIMINO on 06/25/2016 at 13:20 Approved by: Cindy Medley M.D. on 06/25/2016 at 17:30
--- NOTE | 2016-06-25 16:04 | PCM.PNMED ---
Subjective Date of Service Jun 25, 2016 Subjective Ms. Lissette Ash is a 45 year old lad with past medical history significant for 4 admissions over the last 6 years for asthma, with 3-4 prior intubations. She stated upon admission that she has never seen an script developer but wants to know more about why she keeps getting this. Her last episode in September was 10 days in the hospital eventually she experienced left lower lung collapse from mucous plugging that required bronchoscopy to clear. This episode has been going on for 5 days with increasing shortness breath and coughing. Finally the treatments seemed to stop working and she has not been able to sleep for the last 2 nights. In the emergency department she received magnesium, steroids, albuterol with good effect. Her O2 sat is 90-92% on room air, dropping into the 80s with exertion on room air. There has been no fever and the chest x-ray shows no pneumonia. Shortly thereafter patient was requiring increased amounts of oxygen to maintain saturations, and was subsequently intubated. Positive for shortness of breath, wheezing, coughing for 5 days. Negative for fevers, chills , sweats, chest pain, dull pain, nausea, vomiting, diarrhea, blood in stool, dysuria, seizures, rash, joint pain, back pain, hearing loss, new allergies. Prior home medications include Prednisone taper currently at "4 pills "daily, Albuterol by nebulizer, Cetirizine 10 mg today and Twice a day inhaler that is "not Advair ". Non smoker never smoker. Overnight events: No acute overnight events. Today: Ventilatory settings were adjusted to increase rate a lot for increased expiratory time and increase tidal volumes. She remains intubated and sedated cisatracurium, fentanyl and propofol. Exam Vital Signs Vital Sign - Last Date Time Temp Pulse Resp B/P Pulse Ox O2 Delivery O2 Flow Rate FiO2 06/25/16 08:00 103 109/56 94 40 06/25/16 04:30 Ventilator 06/25/16 04:30 37.3 14 06/23/16 23:13 8.00 Intake and Output 06/24/16 06/24/16 06/25/16 Cumulative From/Thru 15:00 23:00 07:00 06/23/16 09:47 - 06/25/16 06:04 Intake Total 1434 ml 3829 ml 6501 ml Output Total 300 ml 300 ml 1150 ml Balance 1134 ml 3529 ml 5351 ml Intake Oral 800 ml IV Total 1434 ml 3635 ml 5507 ml Tube Feeding 114 ml 114 ml Tube Irrigant 80 ml 80 ml Output Urine Total 200 ml 300 ml 1050 ml Gastric Drainage Total 100 ml 100 ml Exam intubated and sedated and paralyzed. Pupils are equally round and reactive to light and accommodation. Extraocular muscles are intact. Sclera are pink and nonicteric. No lymph nodes are felt head, neck, supraclavicular area. JVD is less than 6 cm. No carotid bruits are heard. Heart is regular rate and rhythm without murmur. Lungs have wheezing throughout. No crackles heard. Abdomen is soft, bowel sounds positive, nontender, no organomegaly. Breast/pelvic/rectal exams are deferred to primary care office. Neuro exam without noticeable deficit. Reflexes are normal. There is no tremor. Cranial nerves II through XII tested intact. Skin without rash or jaundice. IVs and Medications Medications Reviewed: Medications were reviewed in detail Lab and Diagnostics Result Diagram: 06/25/1654406/25/1645 X-Rays, CTs and MRIs X-RAY CHEST ONE VIEW, PORTABLE ([id number]) INDICATIONS: SOB TECHNIQUE: One view of the chest was acquired. COMPARISON: None. FINDINGS: Surgical changes and devices: production hand leads are seen over the chest. Lungs and pleura: No pleural effusions or pneumothorax. Lungs are clear. Mediastinum: Mediastinal contours appear normal. Heart size is normal. Bones and chest wall: No suspicious bony lesions. Overlying soft tissues appear unremarkable. IMPRESSION: Acute disease is not appreciated in the upright portable chest. Dictated by: Julián Markham M.D Assessment & Plan Ms. Lissette Ash is a 45 year old lad with past medical history significant for 4 admissions over the last 6 years for asthma, with 3-4 prior intubations. Prior to admission she had 5 days with increasing shortness breath and coughing. Her O2 sat is 90-92% on room air, dropping into the 80s with exertion on room air. There has been no fever and the chest x-ray shows no pneumonia. Shortly thereafter patient was requiring increased amounts of oxygen to maintain saturations, and was subsequently intubated. 1. Acute hypercapneic and hypoxic respiratory failure, with mechanical ventilatory dependence, not present on admission. Active. - due to asthma exacerbation and possibly viral vs bacterial pneumonia. - Not on oxygen at home. - Patient's daughter Susana reports the patient has been intubated 3-4 other times in the past with a minimum of one week stay at the hospital during these times. - Remains intubated and sedated. - ABG as above and Chest x-ray as above. - Procalcitonin negative - Sputum culture/viral PCR/MRSA swab Khan-negative. - Solu-Medrol 125mg every 8H. - IgE - 220 - consider ABPA, will await CT. - CT PE as above. - Consider adding Azithromycin for anti inflammatory. -CTA negative for PE 2. Asthma Exacerbation/Acute Bronchospasm, - Continue IV Solu-Medrol - Continue nebulized albuterol scheduled every 4 hours and every hour when necessary. - Continue oxygen - Continue pulmonary toilet to try to avoid mucus plugging - Vest and flutter valve per RT. - Begin guaifenesin and consider antibiotic therapy/respiratory viral testing - ICU team has been consult, time and recommendations greatly appreciated. - Racemic Epi given today with little results. 3. History of Mucous Plugging/Lung Collapse - Early pulmonary toilet attention from RT with potential vest use and flutter valve. - Consult pulmonology if not improving readily. - Guaifenesin as mucolytic effect 4. History of Prediabetes - It is not clear if this is a steroid/chemical diabetes effect or DM type II. - Check A1c. Acetaminophen for mild pain when necessary. Bowel regimen Senna and MiraLAX scheduled and PRN. Zofran when necessary for nausea and vomiting. SubQ heparin held for now, on Lovenox. SCDs in place. High-risk medications: IV Fentanyl ICU: Vent settings: ABG: As above I/Os: Lines: Drips: Propofol, fentanyl, cisatracurium. Disposition: Likely here for 3-4 midnights possibly longer. Dependent upon asthma exacerbation and respiratory status. Will be discharged to home when medically stable Pain Evaluation: Adequate Pain Control VTE Mechanical Devices: Intermittant Pneumatic CD Attending Statement The patient was seen and examined together with Dr. Gill on 06/25/2016 and I agree with the history, exam and plan as outlined in the note above. . GETACHEW GILL DO Jun 25, 2016 10:04 Germán Samuels MD Jun 25, 2016 18:37
--- NOTE | 2016-06-25 16:50 | PCM.PROC ---
Procedure Note Date of Service: Jun 25, 2016 Pre Procedure Diagnosis: Severe asthma and ventilatory failure Post Procedure Diagnosis: Severe asthma and ventilatory failure Procedure: Right Arterial line Provider and Concrete Floater: Davis Holland DO (resident) Steffi Arango MD (attending) Indication for Procedure: Repeated arterial blood gas and blood pressure monitoring Procedure Details: A time-out was completed verifying correct patient, procedure, site, positioning , and special equipment if applicable. Allens test was performed to ensure adequate perfusion. The patients right wrist was prepped and draped in sterile fashion. An arterial line was introduced into the radial artery. The catheter was threaded over the guide wire and the needle was removed with appropriate pulsatile blood return. The catheter was then dressed in place with a sterile dressing. Perfusion to the extremity distal to the point of catheter insertion was checked and found to be adequate. Dr. Steffi Arango was present for the entire procedure. Estimated Blood Loss: 5cc The patient tolerated the procedure well and there were no complications. Attending Statement I was present for and supervised this procedure. Date of service 06/25/16 Steffi Arango M.D. Pulmonary and Critical Care medicine Pager [phone]. Davis Holland DO Jun 25, 2016 16:50 Steffi Arango MD Jun 26, 2016 08:11
--- NOTE | 2016-06-25 16:56 | PCM.PROC ---
Procedure Note Date of Service: Jun 25, 2016 Pre Procedure Diagnosis: Severe asthma with ventilatory failure Post Procedure Diagnosis: Severe asthma with ventilatory failure Procedure: Right Internal Jugular Central Line placement Provider and Director Of Catering Sales: Dr. Davis Holland (resident) Dr. Steffi Arango (attending) Indication for Procedure: Need for central line access Procedural Analgesia: None as patient is sedated and paralyzed Procedure Details: A time-out was completed verifying correct patient, procedure, site, positioning , and special equipment if applicable. The patient was placed in a horizontal position. The patients right neck was prepped and draped in sterile fashion. A triple lumen catheter was introduced into the the internal jugular vein under ultrasound guidance. The catheter was threaded smoothly over the guide wire and appropriate blood return was obtained. Each lumen of the catheter was evacuated of air and flushed with sterile saline. The catheter was then dressed to the skin and a sterile dressing applied by IV therapy. Dr. Steffi Arango was present for the entire procedure. Estimated Blood Loss: 3cc The patient tolerated the procedure well and there were no complications Attending Statement I was present for part of this procedure and available for immediate supervision throughout. Date of service 06/25/2016 Steffi Arango M.D. Pulmonary and Critical Care medicine Pager [phone] Davis Holland DO Jun 25, 2016 16:56 Steffi Arango MD Jun 26, 2016 08:12
[2016-06-25] MEDS: 0.9% Sodium Chloride 1,000 ML IV SCH (17:00)
--- NOTE | 2016-06-25 18:31 | NUR ---
P: Resp, Hemodynamics, Nutrition, Neuro,Social I,E: Pt remains on the vent, peak pressures are slightly better today in the low 50's occ high 40's. Scant secretions suctioned, but pt has been on nimbex . However, I have turned that down this afternoon and I just turned it off. She is now restrained. RT was made aware and we will watch resp status. Propofol and fentanyl continue. Sats are mid 90's on 40% FIO2. CT of the chest today was negative for PE. Pt also received one liter of LR prior to CT . UOP was increased this shift. Pt has been tolerating the tube feeds and I have just increased them to 20cc/hr as it has been 24hrs and we can increase per barley steeper orders. Pt remains sedated and has just come off nimbex. Family are very supportive and have been with pt throughout the day.
[2016-06-26] VITALS (12 sets, daily range): BP systolic 107–147; BP diastolic 50–72; PULSE 78–110; RESP 12–18; O2SAT 94–96
[2016-06-26] MEDS: fentaNYL 2,500 mCg/250 mL 2,500 MCG in IV Premix 1 EACH IV PRN (00:15)
[2016-06-26] MEDS: Chlorhexidine 0.12% 15 mL Oral Solution MT SCH ×6 (00:57→19:51)
[2016-06-26] MEDS: Propofol Inj 1,000,000 MCG in IV Premix 1 EACH IV SCH ×5 (00:57→22:46)
[2016-06-26] MEDS: MethylprednisoLONE Sodium Succinate 62.5 mg/mL 2 mL Inj IVPUSH SCH ×3 (00:58→17:15)
[2016-06-26] MEDS: Insulin LISPRO 300 Unit/3 mL Inj SUBQ SCH ×4 (02:30→20:30)
[2016-06-26] MEDS: Albuterol-Ipratropium 3 mL Inhalation Solution NEB SCH ×5 (04:21→20:19)
--- NOTE | 2016-06-26 04:38 | ABG ---
DateTimeAnalyzed 04:32:00 -_ pH ____7.340 - 7.350 7.450 pCO2 ___45.8__ -mmHg 35.0 45.0 pO2 ___51.0__ -mmHg 69.0 116 HCO3- ___24.1__ -mmol/L 22.0 26.0 ABE ___-1.3__ -mmol/L -2.0 2.0 tHb ___11.8__ -g/dL O2Hb ___85.8__ -% COHb ____0.7__ -% MetHb ____1.1__ -% sO2 ___87.4__ -% FIO2 ___40.0__ -% PRVC 14 - PEEP ___12.0__ -cmH2O Set_RR ___14.0__ -b/min Vt __450.0__ -L Drawn By MM - Date/Time Notified____ 04:37:00 -_ Spontaneous_RR ___14.0__ -b/min Oxygen Device 1 VENTILATOR - Notified By MM - Notified Whom RN - B 763 -mmHg tO2 ___14.2__ -Vol% Emigdio test N/A -
[2016-06-26] MEDS ORDERED: fentaNYL 2,500 mCg/250 mL 2,500 MCG in IV Premix 1 EACH IV PRN (04:41)
[2016-06-26] MEDS ORDERED: Cisatracurium 200,000 mCg/100 mL NS IV SCH ×2 (04:45)
[2016-06-26] MEDS: 0.9% Sodium Chloride 1,000 ML IV SCH ×2 (06:14→19:50)
[2016-06-26 06:17] LABS: BASOPHILS % (AUTO) 0 % (0-3); EOSINOPHILS % (AUTO) 0.1 % (0-5); MONOCYTES % (AUTO) 3.9 % (4-12); Mean Corpuscular Volume 88.3 fL (81-100); NEUTROPHILS % (AUTO) 90.7 % (40-74); Platelet Count 274 bil/L (150-400)
[2016-06-26 06:38] LABS: Magnesium 2.5 mg/dL (1.6-2.6); Phosphorus 2.5 mg/dL (2.5-4.9)
--- NOTE | 2016-06-26 07:20 | NUR ---
Resp/Sedation: Pt has been sedated and on paralytic which was stopped on day shift friday. Pt had TOF of 4/4 at beginning of shift. About 2300 RT was in suctioning pt and she started to have a strong cough and brought up copious amounts of creamy/white thick secretions. Pt was given a bolus of propofol and fentanyl and calmed down. At 0100 sedation was titrated down frm 45mcg/kg/min to 35 mcg/kg/min and after 20-30 min pt started to cough and fight vent she was a bolus of sedatin and increased back to 45mcg.kg/min.
[2016-06-26] MEDS: Levalbuterol 1.25 mg/0.5mL Inhalation Solution NEB PRN ×4 (07:32→20:19)
[2016-06-26] MEDS: Azithromycin Inj 500 MG in Dextrose 5% w/Vial Mate 250 ML IV SCH (07:45)
--- NOTE | 2016-06-26 07:52 | ABG ---
DateTimeAnalyzed 07:47:00 -_ pH ____7.353 - 7.350 7.450 pCO2 ___42.7__ -mmHg 35.0 45.0 pO2 ___93.9__ -mmHg 69.0 116 HCO3- ___23.1__ -mmol/L 22.0 26.0 ABE ___-1.8__ -mmol/L -2.0 2.0 tHb ___11.3__ -g/dL O2Hb ___95.9__ -% COHb ____0.7__ -% MetHb ____1.2__ -% sO2 ___97.8__ -% FIO2 ___40.0__ -% PRVC 14 - PEEP ___12.0__ -cmH2O Vt __450.0__ -L Drawn By gj - Date/Time Notified____ 07:52:00 -_ Spontaneous_RR ___14.0__ -b/min Oxygen Device 1 VENTILATOR - Notified Whom ___PARIMI - B 765 -mmHg tO2 ___15.4__ -Vol% Emigdio test N/A -
[2016-06-26] MEDS ORDERED: Famotidine Inj 20 MG in IV Premix 1 EACH IV SCH (08:30)
--- NOTE | 2016-06-26 09:07 | DRSVH ---
PROCEDURE: X-RAY CHEST ONE VIEW, PORTABLE ([id number]) INDICATIONS: intubated TECHNIQUE: One view of the chest was acquired. COMPARISON: [facility], CR, XR CHEST 1VW (PORTABLE), 06/25/2016, 12:44. FINDINGS: Surgical changes and devices: Stable position ETT, nasogastric tube and right IJ CVL. Lungs and pleura: No pleural effusions or pneumothorax. Lungs are clear. Mediastinum: Mediastinal contours appear normal. Heart size is normal. Bones and chest wall: No suspicious bony lesions. Overlying soft tissues appear unremarkable. IMPRESSION: Stable chest. Dictated by: Gavin Grover RRA Interpreted: Arielle Jordan MD on 06/26/2016 at 9:06 Transcribed by: CHERRI on 06/26/2016 at 9:07 Approved by: Arielle Jordan MD, PhD on 06/26/2016 at 17:16
[2016-06-26 09:15] LABS: Lipase 19 U/L (13-60)
--- NOTE | 2016-06-26 09:51 | PCM.PNMED ---
Subjective Date of Service Jun 26, 2016 Subjective Ms. Lissette Ash is a 45 year old lad with past medical history significant for 4 admissions over the last 6 years for asthma, with 3-4 prior intubations. She stated upon admission that she has never seen an engraver copperplate but wants to know more about why she keeps getting this. Her last episode in September was 10 days in the hospital eventually she experienced left lower lung collapse from mucous plugging that required bronchoscopy to clear. This episode has been going on for 5 days with increasing shortness breath and coughing. Finally the treatments seemed to stop working and she has not been able to sleep for the last 2 nights. In the emergency department she received magnesium, steroids, albuterol with good effect. Her O2 sat is 90-92% on room air, dropping into the 80s with exertion on room air. There has been no fever and the chest x-ray shows no pneumonia. Shortly thereafter patient was requiring increased amounts of oxygen to maintain saturations, and was subsequently intubated. Positive for shortness of breath, wheezing, coughing for 5 days. Negative for fevers, chills , sweats, chest pain, dull pain, nausea, vomiting, diarrhea, blood in stool, dysuria, seizures, rash, joint pain, back pain, hearing loss, new allergies. Prior home medications include Prednisone taper currently at "4 pills "daily, Albuterol by nebulizer, Cetirizine 10 mg today and Twice a day inhaler that is "not Advair ". Non smoker never smoker. Overnight events: ABG this morning was abnormal. Increased secretions noted by RT. After suctioning, repeat ABG was much better. Today: Patient remains intubated and sedated. Nibex is off, continue fentanyl and propofol. Ventilatory settings were adjusted again this morning. She remains intubated and sedated cisatracurium, Exam Vital Signs Vital Sign - Last Date Time Temp Pulse Resp B/P Pulse Ox O2 Delivery O2 Flow Rate FiO2 06/26/16 08:00 Ventilator 06/26/16 07:33 92 107/50 94 40 06/26/16 07:27 37.1 16 06/23/16 23:13 8.00 Intake and Output 06/25/16 06/25/16 06/26/16 Cumulative From/Thru 15:00 23:00 07:00 06/23/16 09:47 - 06/25/16 18:29 Intake Total 2692 ml 9193 ml Output Total 1350 ml 2500 ml Balance 1342 ml 6693 ml Intake Oral 800 ml IV Total 2465 ml 7972 ml Tube Feeding 111 ml 225 ml Tube Irrigant 116 ml 196 ml Output Urine Total 1350 ml 2400 ml Gastric Drainage Total 100 ml Exam Gen:intubated and sedated. More diaphoretic today. HEENT:Pupils are equally round and reactive to light and accommodation. Extraocular muscles are intact. Sclera are pink and nonicteric. No lymph nodes are felt head, neck, supraclavicular area. JVD is less than 6 cm. No carotid bruits are heard. Card:Heart is regular rate and rhythm without murmur. PULM:Lungs have wheezing throughout. No crackles heard. Abdomen: is soft, bowel sounds positive, nontender, no organomegaly. Breast/pelvic/rectal exams are deferred to primary care office. Neuro exam without noticeable deficit. Reflexes are normal. There is no tremor. Cranial nerves II through XII tested intact. Skin without rash or jaundice. IVs and Medications Medications Reviewed: Medications were reviewed in detail Lab and Diagnostics Result Diagram: 06/26/16 0540 06/26/16 0540 X-Rays, CTs and MRIs CT ANGIO CHEST PULMONARY EMBOLISM IMPRESSION: 1. No evidence of pulmonary embolism. 2. Dependent changes are present within the left base as well as a 5 mm groundglass like opacity within the right base, overall nonspecific. Dictated by: Cindy Medley M.D. on 06/25/2016 at 11:36 X-RAY CHEST ONE VIEW, PORTABLE IMPRESSION: Stable chest. Dictated by: Gavin Grover [facility] Interpreted: Arielle Jordan MD on 06/26/2016 at 9 :06 Transcribed by: CHERRI on 06/26/2016 at 9:07 X-RAY CHEST ONE VIEW, PORTABLE IMPRESSION: Acute disease is not appreciated in the upright portable chest. Dictated by: Julián Markham M.D Additional Diagnostics ABG DateTimeAnalyzed 07:47:00 -_ pH ____7.353 - 7.350 7.450 pCO2 ___42.7__ -mmHg 35.0 45.0 pO2 ___93.9__ -mmHg 69.0 116 HCO3- ___23.1__ -mmol/L 22.0 26.0 Assessment & Plan Ms. Lissette Ash is a 45 year old lad with past medical history significant for 4 admissions over the last 6 years for asthma, with 3-4 prior intubations. Prior to admission she had 5 days with increasing shortness breath and coughing. Her O2 sat is 90-92% on room air, dropping into the 80s with exertion on room air. There has been no fever and the chest x-ray shows no pneumonia. Shortly thereafter patient was requiring increased amounts of oxygen to maintain saturations, and was subsequently intubated. 1. Acute hypercapneic and hypoxic respiratory failure, with mechanical ventilatory dependence, not present on admission. Active. - due to asthma exacerbation and possibly viral vs bacterial pneumonia. - Not on oxygen at home. - Patient's daughter Susana reports the patient has been intubated 3-4 other times in the past with a minimum of one week stay at the hospital during these times. - Remains intubated and sedated. - ABG as above and Chest x-ray as above. - Procalcitonin negative, Sputum culture/viral PCR/MRSA swab Khan-negative. - Solu-Medrol 125mg every 8H. - IgE - 220 - with CT otherwise normal - unlikely ABPA - CT PE as above. negative for PE 06/25. - Azithromycin started 06/25 - IJ and art line placed yesterday without complications. - Weening off fentanyl, currently at 100, will decrease by 25 until we reach goal of 25. - Continue with propofol at current rate of 40 until fentanyl ween is complete. - Triglycerides pending. (Q3Day while on propofol) - Lipase pending. 2. Asthma Exacerbation/Acute Bronchospasm, - Continue IV Solu-Medrol - Continue nebulized albuterol scheduled every 4 hours and every hour when necessary. - Continue oxygen - Continue pulmonary toilet to try to avoid mucus plugging - Vest and flutter valve per RT. - Begin guaifenesin and consider antibiotic therapy/respiratory viral testing - ICU team has been consult, time and recommendations greatly appreciated. - Large thick secretions noted by RT, sputum cx pending (fungal and bacterial). 3. History of Mucous Plugging/Lung Collapse - Early pulmonary toilet attention from RT with potential vest use and flutter valve. - Consult pulmonology if not improving readily. - Guaifenesin as mucolytic effect 4. History of Prediabetes - It is not clear if this is a steroid/chemical diabetes effect or DM type II. - A1c 5.9. Acetaminophen for mild pain when necessary. Bowel regimen Senna and MiraLAX scheduled and PRN. Zofran when necessary for nausea and vomiting. SubQ heparin held for now, on Lovenox. SCDs in place. High-risk medications: IV Fentanyl ICU: Vent settings: ABG: As above I/Os: Lines: Right IJ, Art line, Drips: 40 Propofol , 100 fentanyl currently weening, off nimbex Disposition: Likely here for 3-4 midnights possibly longer. Dependent upon asthma exacerbation and respiratory status. Will be discharged to home when medically stable Pain Evaluation: Adequate Pain Control VTE Mechanical Devices: Intermittant Pneumatic CD Attending Statement The patient was seen and examined together with Dr. Gill on 06/26/2016 and I agree with the history, exam and plan as outlined in the note above. GETACHEW GILL DO Jun 26, 2016 09:44 Germán Samuels MD Jun 26, 2016 13:47
[2016-06-26] MEDS: Polyethylene Glycol (PEG) 17 Gm Powder PO SCH (10:20)
--- NOTE | 2016-06-26 10:39 | NUR ---
NUTRITION FOLLOW-UP Assess: 45 YO F admitted to CCU for asthma exacerbation requiring intubation. CT of chest was negative for PE. TF advancing to goal rate and tolerating well w/ minimal residuals. Weaned off nimbex. Pt remains on propofol; plans to wean fentanyl. No BM recorded yet. Pt is positive 7.5L. PMHX: Asthma, left lower lobe mucous plugging. DIET: NPO. NUTRITION SUPPORT: Jevity 1.5 @ 40ml/hr. Plan to advance to goal today. LABS: Reviewed. Cl 110, Gluc 181, Ca 8.2, AST 71, ALT 75, Alb 3.3 MEDICATIONS: Propofol @ 20.2 ml/hr providing 533 kcal/day, Fentanyl, Solu-medrol, Miralax, Insulin GI: No BM noted yet. Pt receiving Miralax. SKIN: No PU per WC, Balaji 11 WEIGHT: 91.8 kg, BMI 32.7 kg/m2, Admit wt: 84.09 kg, IBW: 59.1 kg ESTIMATED NEEDS: VENT/BMI Calories: 3502-4359 kcal/day (20-22 kcal/kg BW) Protein: 89-106 g/day (1.5-1.8 g/kg IBW) NUTRITION DIAGNOSIS: 1) Inadequate oral intake related to decreased ability to consume sufficient energy as evidenced by NPO/Vent status. --PERSISTS INTERVENTION: 1) Recommend continuing to advance TF of Jevity 1.5 by 10 ml q 6 hr to goal rate of 45 ml/hr. At goal TF will provide 1485 kcal (TF + Propofol = 2018 kcal), 63 g protein; meeting 100% calorie, 71% protein needs. 2) Once TF tolerance established, add 1 packet of Prosource protein TID to provide a total of 96 g protein; meeting 100% of protein needs. 3) Adjust TF goal based on daily propofol rate. MONITOR/EVALUATE: NPO/Vent status, labs, TF advance/colleen, GI/nutrition status. Follow per high nutrition risk guidelines. Addendum: 03/01/17 at [address] Student documentation reviewed and I agree with the above assessment. Mak Rhodes, MS, RDN, CD
--- NOTE | 2016-06-26 11:23 | PROG NOTE ---
[address] [address] PROGRESS NOTE PATIENT: GAL ESCUDERO : 1970 MR#: [id number] ADMIT: 06/23/2016 JOB ID: [id number] DATE: 06/26/2016 PULMONARY CRITICAL CARE PROGRESS NOTE: The patient is a 45-year-old woman with history of severe poorly controlled asthma admitted with acute respiratory failure requiring mechanical ventilation. INTERVAL HISTORY: She underwent a CT scan yesterday that did not show any other explanation for her decompensation. Today she is doing better, off paralytics. Parameters on the vent seem improved compared to the last couple of days. REVIEW OF SYSTEMS: Unable to obtain. Patient is intubated. VITAL SIGNS: Reviewed. Temperature 37.3, pulse 89, respirations 16, BP 120/59, sats 95% on 40% FiO2, 12 cm of PEEP. Respiratory rate 14, tidal volume 450. General intubated, sedated. Chest: Still some wheezing but not as tight as yesterday. On the vent, plateau pressure 26, total measured PEEP is 15 with a set PEEP of 12, peak pressures are around 38-40. LABORATORIES: Reviewed. WBC 13.8, hemoglobin 11.5, platelets 274. Chemistry also reviewed and normal. Procalcitonin negative. IgE level 221 from June 24. Cultures: No growth from sputum, respiratory viral PCR negative. IMAGING: Chest CT reviewed. No pulmonary embolism. Lungs are clear. No evidence of bronchiectasis. There is some airway wall thickening. There is one small area of ground-glass that I think is just nonspecific. ASSESSMENT AND RECOMMENDATIONS: 1. Acute hypoxic respiratory failure on mechanical ventilation since June 24. 2. Severe persistent asthma with asthma exacerbation. 3. Elevated immunoglobulin E. This 45-year-old woman with severe persistent asthma, presenting with acute asthma exacerbation. She had significant respiratory acidosis, high peak pressures, high plateau pressures and auto PEEP, all of which made it extremely difficult to ventilate her over the last couple of days. She has finally improved enough today that her acidosis has corrected, pH of 7.35, pCO2 47, pO2 93, bicarbonate of 23. I would like to decrease her respiratory rate from 14 to 12 and see if she can over breathe. I also decreased her PEEP from 12 to 10 since she has minimal auto PEEP. Since her Nimbex is off, I would like to wean down her fentanyl and propofol as tolerated. Fentanyl is currently at 100 and propofol is at 40. My priority would be to get her on as little a dose of fentanyl as possible and then wean the propofol. Solu-Medrol remains at 1.5 q.8. I think we should leave this dose today and plan on cutting it probably even in half tomorrow. She is getting DuoNeb and p.r.n. albuterol and Xopenex nebs. I also added azithromycin yesterday and will just complete a five day course of this. She is on appropriate DVT and GI prophylaxis. She is on pantoprazole on I would prefer her to be on famotidine unless there is any indication for this. Will try to switch her back by today. She is a FULL CODE. I spoke to her daughter and updated her at the bedside. CRITICAL CARE TIME: 45 minutes.
[2016-06-26] MEDS: Pantoprazole 4 mg/mL 10 mL Inj IVPUSH SCH (17:15)
--- NOTE | 2016-06-26 18:25 | NUR ---
SEDATION/RESPIRATORY Patient sedated w/ Propofol at 40 mcg/kg/min and Fentanyl at 75 mcg/hr. Attempted to wean Fentanyl gtt from 100 mcg/hr to 50 mcg/hr, over extended period of time, but patient did not tolerate dose of 50 mcg/hr. She became tachycardic, tachypneic and extremely bronchospastic. Attempted to bolus w/ Propofol x2, but this was ineffective. Fentanyl gtt increased back to 75 mcg/hr, and she continues to require intermittent boluses of Fentanyl and/or Propofol, but appears comfortable. Patient continues to produce large amounts of thick, creamy sputum, sample was collected and sent for culture by RT. Will continue to monitor vitals, sedation requirements and respiratory status.
[2016-06-27] VITALS (17 sets, daily range): BP systolic 104–184; BP diastolic 63–94; PULSE 88–103; RESP 12–20; O2SAT 94–100
[2016-06-27] MEDS: Albuterol-Ipratropium 3 mL Inhalation Solution NEB SCH ×6 (00:30→23:59)
[2016-06-27] MEDS: Levalbuterol 1.25 mg/0.5mL Inhalation Solution NEB PRN ×5 (00:32→23:59)
[2016-06-27] MEDS: MethylprednisoLONE Sodium Succinate 62.5 mg/mL 2 mL Inj IVPUSH SCH ×2 (01:29→17:36)
[2016-06-27] MEDS: Chlorhexidine 0.12% 15 mL Oral Solution MT SCH ×6 (01:29→20:30)
[2016-06-27] MEDS: Propofol Inj 1,000,000 MCG in IV Premix 1 EACH IV SCH ×5 (02:27→22:54)
[2016-06-27] MEDS: Insulin LISPRO 300 Unit/3 mL Inj SUBQ SCH ×4 (02:29→22:00)
--- NOTE | 2016-06-27 05:06 | ABG ---
DateTimeAnalyzed 04:59:00 -_ pH ____7.410 - 7.350 7.450 pCO2 ___44.3__ -mmHg 35.0 45.0 pO2 ___70.8__ -mmHg 69.0 116 HCO3- ___27.5__ -mmol/L 22.0 26.0 ABE ____3.0__ -mmol/L -2.0 2.0 tHb ___11.6__ -g/dL O2Hb ___93.7__ -% COHb ____0.8__ -% MetHb ____1.1__ -% sO2 ___95.5__ -% FIO2 ___40.0__ -% PRVC 12 - PEEP ___10.0__ -cmH2O Set_RR ___12.0__ -b/min Vt __450.0__ -L Drawn By MM - Date/Time Notified____ 05:06:00 -_ Spontaneous_RR ___13.0__ -b/min Oxygen Device 1 VENTILATOR - Notified By MM - Notified Whom RN - B 765 -mmHg tO2 ___15.4__ -Vol% Emigdio test N/A -
[2016-06-27] MEDS: 0.9% Sodium Chloride 1,000 ML IV SCH ×2 (05:37→21:59)
--- NOTE | 2016-06-27 06:44 | NUR ---
Sedation/Resp: Pt at start of shift was very agitated coughing and fighting against the vent. Pt received 3ml bolus of propofol and 50mcg bolus of fentanyl. propofol was titrated up to 45mcg/kg/min and fentanyl was titrated up to 100mcg/hr pt tolerated vent well with 4 episodes of agitation where bolus of sedation need to be given. Pt had to episode were she desated and required a lot of suctioning down ETT of thick creamy/white secretions.
[2016-06-27] MEDS: Pantoprazole 4 mg/mL 10 mL Inj IVPUSH SCH ×2 (08:24→16:30)
[2016-06-27] MEDS: Azithromycin Inj 500 MG in Dextrose 5% w/Vial Mate 250 ML IV SCH (08:25)
[2016-06-27] MEDS: Polyethylene Glycol (PEG) 17 Gm Powder PO SCH (08:30)
[2016-06-27] MEDS ORDERED: Furosemide 10 mg/mL 2 mL Inj IVPUSH ONE (08:55)
[2016-06-27 10:05] LABS: BASOPHILS % (AUTO) 0.1 % (0-3); EOSINOPHILS % (AUTO) 0.1 % (0-5); MONOCYTES % (AUTO) 4.9 % (4-12); Mean Corpuscular Hemoglobin 27.7 pg (27.0-35.0); Mean Corpuscular Volume 87.9 fL (81-100); NEUTROPHILS % (AUTO) 87.3 % (40-74); Platelet Count 256 bil/L (150-400)
--- NOTE | 2016-06-27 12:50 | NUR ---
NUTRITION FOLLOW-UP Assess: 45 YO F admitted to CCU for asthma exacerbation requiring intubation. Pt remains intubated and sedated. CT of chest was negative for PE. TF is at goal rate w/ minimal residuals. Pt remains on propofol. No BM recorded yet. Pt is positive 10L. No new labs drawn. PMHX: Asthma, left lower lobe mucous plugging. DIET: NPO. NUTRITION SUPPORT: Jevity 1.5 @ goal rate of 45ml/hr. Minimal residuals LABS: Reviewed 06/26. Cl 110, Gluc 181, Ca 8.2, AST 71, ALT 75, Alb 3.3 MEDICATIONS: Propofol @ 20.2 ml/hr providing 533 kcal/day, Fentanyl, Miralax, Insulin GI: No BM noted yet. Pt receiving Miralax. SKIN: No PU per JOE, Balaji 11 WEIGHT: 92.3 kg, BMI 32.8 kg/m2, Admit wt: 84.09 kg, IBW: 59.1 kg ESTIMATED NEEDS: VENT/BMI (needs updated) Calories: 8249-5458 kcal/day (20-22 kcal/kg Admit BW) Protein: 89-106 g/day (1.5-1.8 g/kg IBW) NUTRITION DIAGNOSIS: 1) Inadequate oral intake related to decreased ability to consume sufficient energy as evidenced by NPO/Vent status. --PERSISTS INTERVENTION: 1) Recommend reducing TF of Jevity 1.5 to new goal rate of 40 ml/hr to provide 1853 total kcal (1320 formula + 533 propofol) and 56 g protein; meeting 100% calorie and 63% protein needs. 2) Add 1 packet of Prosource protein TID to provide a total of 89 g protein; meeting 100% of protein needs. 3) Adjust TF goal based on daily propofol rate. MONITOR/EVALUATE: NPO/Vent status, labs, TF colleen, GI/nutrition status. Follow per high nutrition risk guidelines. Addendum: 06/27/16 at [address] Student documentation reviewed and I agree with the above assessment. Mak Saeed, MS, RDN, CD
--- NOTE | 2016-06-27 13:30 | PCM.PNMED ---
Subjective Date of Service Jun 27, 2016 Subjective Ms. Lissette Ash is a 45 year old lad with past medical history significant for 4 admissions over the last 6 years for asthma, with 3-4 prior intubations. She stated upon admission that she has never seen an shellfish weigher but wants to know more about why she keeps getting this. Her last episode in September was 10 days in the hospital eventually she experienced left lower lung collapse from mucous plugging that required bronchoscopy to clear. This episode has been going on for 5 days with increasing shortness breath and coughing. Finally the treatments seemed to stop working and she has not been able to sleep for the last 2 nights. In the emergency department she received magnesium, steroids, albuterol with good effect. Her O2 sat is 90-92% on room air, dropping into the 80s with exertion on room air. There has been no fever and the chest x-ray shows no pneumonia. Shortly thereafter patient was requiring increased amounts of oxygen to maintain saturations, and was subsequently intubated. Positive for shortness of breath, wheezing, coughing for 5 days. Negative for fevers, chills , sweats, chest pain, dull pain, nausea, vomiting, diarrhea, blood in stool, dysuria, seizures, rash, joint pain, back pain, hearing loss, new allergies. Prior home medications include Prednisone taper currently at "4 pills "daily, Albuterol by nebulizer, Cetirizine 10 mg today and Twice a day inhaler that is "not Advair ". Non smoker never smoker. Overnight events: Continued bronchospasm and difficulty with ventilation with decreasing doses of Fentanyl. secretions noted by RT. Today: Patient remains intubated and sedated. Continued fentanyl and propofol. Ventilatory settings were adjusted again this morning. She remains intubated and sedated. Exam Vital Signs Vital Sign - Last Date Time Temp Pulse Resp B/P Pulse Ox O2 Delivery O2 Flow Rate FiO2 06/27/16 11:30 92 122/77 100 40 06/27/16 11:27 37.2 15 Mechanical Ventilator 06/23/16 23:13 8.00 Intake and Output 06/26/16 06/26/16 06/27/16 Cumulative From/Thru 15:00 23:00 07:00 06/23/16 09:47 - 06/27/16 06:37 Intake Total 1666 ml 1979 ml 2011 ml 13648 ml Output Total 850 ml 600 ml 800 ml 4750 ml Balance 816 ml 1379 ml 1211 ml 46358 ml Intake Oral 800 ml IV Total 1372 ml 1420 ml 1376 ml 91671 ml Tube Feeding 214 ml 479 ml 530 ml 1448 ml Tube Irrigant 80 ml 80 ml 105 ml 461 ml Output Urine Total 850 ml 600 ml 800 ml 4650 ml Gastric Drainage Total 100 ml # Bowel Movements 0 0 Exam Gen:intubated and sedated. More diaphoretic today. HEENT:Pupils are equally round and reactive to light and accommodation. Extraocular muscles are intact. Sclera are pink and nonicteric. No lymph nodes are felt head, neck, supraclavicular area. JVD is less than 6 cm. No carotid bruits are heard. Card:Heart is regular rate and rhythm without murmur. PULM:Lungs have wheezing throughout. No crackles heard. Abdomen: is soft, bowel sounds positive, nontender, no organomegaly. Breast/pelvic/rectal exams are deferred to primary care office. Neuro exam without noticeable deficit. Reflexes are normal. There is no tremor. Cranial nerves II through XII tested intact. Skin without rash or jaundice. IVs and Medications Medications Reviewed: Medications were reviewed in detail Lab and Diagnostics Result Diagram: 06/27/16 1002 06/27/16 0939 X-Rays, CTs and MRIs CT ANGIO CHEST PULMONARY EMBOLISM IMPRESSION: 1. No evidence of pulmonary embolism. 2. Dependent changes are present within the left base as well as a 5 mm groundglass like opacity within the right base, overall nonspecific. Dictated by: Cindy Medley M.D. on 06/25/2016 at 11:36 X-RAY CHEST ONE VIEW, PORTABLE IMPRESSION: Stable chest. Dictated by: Gavin Grover [facility] Interpreted: Arielle Jordan MD on 06/26/2016 at 9 :06 Transcribed by: CHERRI on 06/26/2016 at 9:07 X-RAY CHEST ONE VIEW, PORTABLE IMPRESSION: Acute disease is not appreciated in the upright portable chest. Dictated by: Julián Markham M.D Additional Diagnostics ABG DateTimeAnalyzed 07:47:00 -_ pH ____7.353 - 7.350 7.450 pCO2 ___42.7__ -mmHg 35.0 45.0 pO2 ___93.9__ -mmHg 69.0 116 HCO3- ___23.1__ -mmol/L 22.0 26.0 Assessment & Plan Ms. Lissette Ash is a 45 year old lad with past medical history significant for 4 admissions over the last 6 years for asthma, with 3-4 prior intubations. Prior to admission she had 5 days with increasing shortness breath and coughing. Her O2 sat is 90-92% on room air, dropping into the 80s with exertion on room air. There has been no fever and the chest x-ray shows no pneumonia. Shortly thereafter patient was requiring increased amounts of oxygen to maintain saturations, and was subsequently intubated. 1. Acute hypercapneic and hypoxic respiratory failure, with mechanical ventilatory dependence, not present on admission. Active. - due to asthma exacerbation and possibly viral vs bacterial pneumonia.Not on oxygen at home. - Patient's daughter Susana reports the patient has been intubated 3-4 other times in the past with a minimum of one week stay at the hospital during these times. - Remains intubated and sedated. - Solu-Medrol 125mg every 8H. - IgE - 220 - with CT otherwise normal - unlikely ABPA, - Procalcitonin/sputum culture/viral PCR/MRSA swab Khan-negative. - Triglycerides wnl 138 (06/26) (Q3Day while on propofol), Lipase wnl 19 (06/26) - CT PE as above. negative for PE 06/25. - Azithromycin started 06/25 - PT ordered. - Weening off fentanyl, currently at 50, will decrease by 25 until we reach goal of 25. - Continue with propofol at current rate of 40 until fentanyl ween is complete. - ABG as above and Chest x-ray as above. - new poss L lower lobe infiltrate poss pneumonia. as above. - Lasix 20 mg IV. 2. Asthma Exacerbation/Acute Bronchospasm, - Continue IV Solu-Medrol,tapered down today - Continue nebulized albuterol scheduled every 4 hours and every hour when necessary. - Continue oxygen - Continue pulmonary toilet to try to avoid mucus plugging - Vest and flutter valve per RT. - Begin guaifenesin and consider antibiotic therapy/respiratory viral testing - ICU team has been consult, time and recommendations greatly appreciated. - Large thick secretions noted by RT, sputum cx pending (fungal and bacterial). 3. History of Mucous Plugging/Lung Collapse - Early pulmonary toilet attention from RT with potential vest use and flutter valve. - Consult pulmonology if not improving readily. - Guaifenesin as mucolytic effect 4. History of Prediabetes - It is not clear if this is a steroid/chemical diabetes effect or DM type II. - A1c 5.9. Acetaminophen for mild pain when necessary. Bowel regimen Senna and MiraLAX scheduled and PRN. Zofran when necessary for nausea and vomiting. SubQ heparin held for now, on Lovenox. SCDs in place. High-risk medications: IV Fentanyl ICU: Lines: Right IJ, Art line, Drips: 40 Propofol , 50 fentanyl currently weening, off nimbex Disposition: Likely here for 3-4 midnights possibly longer. Dependent upon asthma exacerbation and respiratory status. Will be discharged to home when medically stable Pain Evaluation: Adequate Pain Control VTE Mechanical Devices: Intermittant Pneumatic CD Attending Statement The patient was seen and examined together with Dr. Gill on 06/27/2016 and I agree with the history, exam and plan as outlined in the note above. GETACHEW GILL DO Jun 27, 2016 13:30 Germán Samuels MD Jun 27, 2016 18:40
--- NOTE | 2016-06-27 17:06 | DRSVH ---
PROCEDURE: X-RAY CHEST ONE VIEW, PORTABLE ([id number]) INDICATIONS: intubated TECHNIQUE: One view of the chest was acquired. COMPARISON: [facility], CR, XR CHEST 1VW (PORTABLE), 06/26/2016, 5:38. FINDINGS: Surgical changes and devices: Stable positioning of ETT, nasogastric tube and right IJ CVL. Lungs and pleura: No pleural effusions or pneumothorax. Lung volumes are low and there is medial le ft basilar airspace opacity. Mediastinum: Mediastinal contours appear normal. Heart size is normal. Bones and chest wall: No suspicious bony lesions. Overlying soft tissues appear unremarkable. IMPRESSION: 1. Left basilar atelectasis versus aspiration or pneumonia. Correlate clinically. Dictated by: Gavin Grover RRA Interpreted: Arielle Jordan MD on 06/27/2016 at 10:38 Transcribed by: CHERRI on 06/27/2016 at 10:49 Approved by: Arielle Jordan MD, PhD on 06/27/2016 at 17:00
--- NOTE | 2016-06-27 18:04 | PROG NOTE ---
[address] [address] PROGRESS NOTE PATIENT: GAL ESCUDERO : 1970 MR#: [id number] ADMIT: 06/23/2016 JOB ID: [id number] DATE: 06/27/2016 PULMONARY/CRITICAL CARE PROGRESS NOTE: The patient is a 45-year-old woman with history of severe persistent asthma, admitted with acute hypoxic respiratory failure. INTERVAL HISTORY: Sedation has been weaned down today. Vent settings show significant improvement in peak, plateau pressures, and auto PEEP. REVIEW OF SYSTEMS: Unable to obtain. PHYSICAL EXAMINATION: Vital signs: T-max of 37.7, pulse 92, respirations 20, BP 122/77, sats 100% on 40% FiO2. General: Sedated initially, but with lightening sedation she opens her eyes, but does not really follow commands. Chest is clear today; I do not really hear any wheezing. LABORATORIES: Reviewed. WBC 12.8, down from 13.8. Chemistry is normal. Cultures: No new growth. Chest x-ray unchanged, clear bilaterally. ASSESSMENT: 1. Acute hypoxic hypercarbic respiratory failure. 2. Asthma exacerbation. 3. Severe persistent asthma. RECOMMENDATIONS: A 45-year-old woman with severe, poorly controlled asthma, admitted with acute hypoxic hypercarbic respiratory failure requiring mechanical ventilation since June 23, 2016. She continues to slowly improve despite significant difficulty in the first few days of mechanical ventilation with high peak, plateau, and auto PEEP. We also struggled with respiratory acidosis at that time. Today we slowly weaned her PEEP down from 12 to 5. She tolerated a pressure support trial of 5/5 for about 45 minutes and then had to be put back on assist control for increased coughing and wheezing, bronchospasm. She is on light sedation currently but seems uncomfortable. I am hoping tomorrow that we can put her on a spontaneous breathing trial in the morning and extubate her in the morning. We could use BiPAP if needed post extubation. We decreased her Solu-Medrol to 60 IV q. 8 today. Also she is on azithromycin and I think she only needs two more days of this and it can be stopped. She is on appropriate DVT and GI prophylaxis. She is a FULL CODE. CRITICAL CARE TIME: 45 minutes.
--- NOTE | 2016-06-27 18:45 | NUR ---
Respiratory/sedation/ Continues on ventilator with 40% fi02 and 5 of peep. SBT completed this afternoon, pt tolerated. Plan to start SBT early am and possibly extubate 06/28. Per Dr Arango, titrate propofol as needed for sedation and ventilator tolerance. Keep continous fentanyl gtt at 25mcg/hr, and bolus PRN. SR per bus driver/monitor. Pressure stable. T-max 37.7.
[2016-06-28] VITALS (17 sets, daily range): BP systolic 113–156; BP diastolic 60–82; PULSE 70–106; RESP 13–26; O2SAT 89–97
[2016-06-28] MEDS: Chlorhexidine 0.12% 15 mL Oral Solution MT SCH ×5 (00:55→16:30)
[2016-06-28] MEDS: MethylprednisoLONE Sodium Succinate 62.5 mg/mL 2 mL Inj IVPUSH SCH ×3 (00:55→17:52)
[2016-06-28] MEDS: Insulin LISPRO 300 Unit/3 mL Inj SUBQ SCH ×4 (02:30→20:30)
[2016-06-28] MEDS: Propofol Inj 1,000,000 MCG in IV Premix 1 EACH IV SCH ×3 (02:32→09:25)
[2016-06-28] MEDS: Albuterol-Ipratropium 3 mL Inhalation Solution NEB SCH ×5 (04:14→20:15)
[2016-06-28] MEDS: Levalbuterol 1.25 mg/0.5mL Inhalation Solution NEB PRN ×2 (04:14→07:45)
--- NOTE | 2016-06-28 04:29 | ABG ---
DateTimeAnalyzed 04:23:00 -_ pH ____7.459 - 7.350 7.450 pCO2 ___43.8__ -mmHg 35.0 45.0 pO2 ___64.2__ -mmHg 69.0 116 HCO3- ___30.6__ -mmol/L 22.0 26.0 ABE ____6.4__ -mmol/L -2.0 2.0 tHb ___11.8__ -g/dL O2Hb ___91.8__ -% COHb ____0.9__ -% MetHb ____1.0__ -% sO2 ___93.6__ -% FIO2 ___40.0__ -% PEEP ____5.0__ -cmH2O Set_RR ___12.0__ -b/min Vt __450.0__ -L Drawn By MM - Date/Time Notified____ 04:29:00 -_ Spontaneous_RR ___13.0__ -b/min Oxygen Device 1 VENTILATOR - Notified By MM - Notified Whom RN - B 756 -mmHg tO2 ___15.3__ -Vol% Emigdio test N/A -
[2016-06-28 04:40] LABS: BASOPHILS % (AUTO) 0.1 % (0-3); EOSINOPHILS % (AUTO) 0.1 % (0-5); Mean Corpuscular Hemoglobin 27.8 pg (27.0-35.0); Mean Corpuscular Volume 85.6 fL (81-100); NEUTROPHILS % (AUTO) 82.6 % (40-74); Platelet Count 265 bil/L (150-400)
[2016-06-28 05:11] LABS: Magnesium 2.5 mg/dL (1.6-2.6); Phosphorus 3.4 mg/dL (2.5-4.9)
--- NOTE | 2016-06-28 05:58 | NUR ---
Vent, sedation Continues ventilated with sats mid 90s on 40% fio2. Desaturated to 86-88% with any stimulation resulting in bronchospastic cough. Suctioning moderate amounts thick white secretions. Tele sinus rhythm 90s to 100s. Arouses to open eyes to minimal stim but does not follow commands. Tolerating tube feeds without residuals. Smith cath in place with 1950ml uop this shift. Multiple family members at bedside through the night.
[2016-06-28] MEDS: Pantoprazole 4 mg/mL 10 mL Inj IVPUSH SCH (07:23)
[2016-06-28] MEDS: Azithromycin Inj 500 MG in Dextrose 5% w/Vial Mate 250 ML IV SCH (07:24)
[2016-06-28] MEDS: Polyethylene Glycol (PEG) 17 Gm Powder PO SCH (07:37)
[2016-06-28] MEDS: guaiFENesin 20 mg/mL 10 mL Syrup PO PRN (08:09)
[2016-06-28] MEDS ORDERED: Furosemide 10 mg/mL 2 mL Inj IVPUSH ONE (08:50)
--- NOTE | 2016-06-28 08:52 | NUR ---
Jaquez fall scale not assessed. Patient is intubated, sedated and restrained. No attempts to climb out of bed. No particular risk for falls at this time.
--- NOTE | 2016-06-28 10:26 | DRSVH ---
PROCEDURE: X-RAY CHEST ONE VIEW, PORTABLE ([id number]) INDICATIONS: intubated TECHNIQUE: One view of the chest was acquired. COMPARISON: [facility], CR, XR CHEST 1VW (PORTABLE), 06/27/2016, 5:48. FINDINGS: Surgical changes and devices: ETT tube tip projecting 1.3 cm above the sheng. Stable positioning of right IJ CVL. Stable position of nasogastric tube. Lungs and pleura: No pleural effusions or pneumothorax. Slight increase in retrocardiac airspace op acity. Mediastinum: Mediastinal contours appear normal. Heart size is normal. Bones and chest wall: No suspicious bony lesions. Overlying soft tissues appear unremarkable. IMPRESSION: 1. Support lines and tubes as above. 2. Slight increase in retrocardiac consolidation. Dictated by: Gavin Grover [facility] Interpreted: Maggy Arcos MD on 06/28/2016 at 10:25 Transcribed by: BETSY on 06/28/2016 at 10:26 Approved by: Maggy Arcos M.D. on 06/28/2016 at 13:41
[2016-06-28] MEDS: Albuterol 2.5 mg/3 mL Inhalation Solution NEB PRN ×2 (11:46→15:25)
--- NOTE | 2016-06-28 11:46 | PCM.PNMED ---
Subjective Date of Service Jun 28, 2016 Subjective Ms. Lissette Ash is a 45 year old lad with past medical history significant for 4 admissions over the last 6 years for asthma, with 3-4 prior intubations. She stated upon admission that she has never seen an cruller maker but wants to know more about why she keeps getting this. Her last episode in September was 10 days in the hospital eventually she experienced left lower lung collapse from mucous plugging that required bronchoscopy to clear. This episode has been going on for 5 days with increasing shortness breath and coughing. Finally the treatments seemed to stop working and she has not been able to sleep for the last 2 nights. In the emergency department she received magnesium, steroids, albuterol with good effect. Her O2 sat is 90-92% on room air, dropping into the 80s with exertion on room air. There has been no fever and the chest x-ray shows no pneumonia. Shortly thereafter patient was requiring increased amounts of oxygen to maintain saturations, and was subsequently intubated. Positive for shortness of breath, wheezing, coughing for 5 days. Negative for fevers, chills , sweats, chest pain, dull pain, nausea, vomiting, diarrhea, blood in stool, dysuria, seizures, rash, joint pain, back pain, hearing loss, new allergies. Prior home medications include Prednisone taper currently at "4 pills "daily, Albuterol by nebulizer, Cetirizine 10 mg today and Twice a day inhaler that is "not Advair ". Non smoker never smoker. Overnight events: Continued bronchospasm and difficulty with ventilation with decreasing doses of Fentanyl. secretions noted by RT. Today: Patient remains intubated and sedated with eyes open and little response to stimuli. Continued weening fentanyl and propofol. Patient tolerated 45mins on SBT yesterday and this morning. She remains intubated and sedated. With plan to extubate today. Exam Vital Signs Vital Sign - Last Date Time Temp Pulse Resp B/P Pulse Ox O2 Delivery O2 Flow Rate FiO2 06/28/16 08:00 Ventilator 06/28/16 08:00 37.7 103 26 114/60 89 40 06/23/16 23:13 8.00 Intake and Output 06/27/16 06/27/16 06/28/16 Cumulative From/Thru 15:00 23:00 07:00 06/23/16 09:47 - 06/28/16 05:57 Intake Total 1918 ml 1929 ml 36592 ml Output Total 3150 ml 1950 ml 9850 ml Balance -1232 ml -21 ml 8846 ml Intake Oral 800 ml IV Total 1401 ml 1280 ml 32386 ml Tube Feeding 437 ml 529 ml 2414 ml Tube Irrigant 80 ml 120 ml 661 ml Output Urine Total 3150 ml 1950 ml 9750 ml Gastric Drainage Total 100 ml # Bowel Movements 0 Exam Gen:intubated and sedated. More diaphoretic today. HEENT:Pupils are equally round and reactive to light and accommodation. Extraocular muscles are intact. Sclera are pink and nonicteric. No lymph nodes are felt head, neck, supraclavicular area. JVD is less than 6 cm. No carotid bruits are heard. Card:Heart is regular rate and rhythm without murmur. PULM:Lungs have wheezing throughout. No crackles heard. Abdomen: is soft, bowel sounds positive, nontender, no organomegaly. Breast/pelvic/rectal exams are deferred to primary care office. Neuro exam without noticeable deficit. Reflexes are normal. There is no tremor. Cranial nerves II through XII tested intact. Skin without rash or jaundice. IVs and Medications Medications Reviewed: Medications were reviewed in detail Lab and Diagnostics Result Diagram: 06/28/1641906/28/16 042 X-Rays, CTs and MRIs CT ANGIO CHEST PULMONARY EMBOLISM IMPRESSION: 1. No evidence of pulmonary embolism. 2. Dependent changes are present within the left base as well as a 5 mm groundglass like opacity within the right base, overall nonspecific. Dictated by: Cindy Medley M.D. on 06/25/2016 at 11:36 X-RAY CHEST ONE VIEW, PORTABLE IMPRESSION: Stable chest. Dictated by: Gavin Grover RRApolinar Interpreted: Arielle Jordan MD on 06/26/2016 at 9 :06 Transcribed by: CHERRI on 06/26/2016 at 9:07 X-RAY CHEST ONE VIEW, PORTABLE IMPRESSION: Acute disease is not appreciated in the upright portable chest. Dictated by: Julián Markham M.D Additional Diagnostics ABG DateTimeAnalyzed 07:47:00 -_ pH ____7.353 - 7.350 7.450 pCO2 ___42.7__ -mmHg 35.0 45.0 pO2 ___93.9__ -mmHg 69.0 116 HCO3- ___23.1__ -mmol/L 22.0 26.0 Assessment & Plan Ms. Lissette Ash is a 45 year old lad with past medical history significant for 4 admissions over the last 6 years for asthma, with 3-4 prior intubations. Prior to admission she had 5 days with increasing shortness breath and coughing. Her O2 sat is 90-92% on room air, dropping into the 80s with exertion on room air. There has been no fever and the chest x-ray shows no pneumonia. Shortly thereafter patient was requiring increased amounts of oxygen to maintain saturations, and was subsequently intubated. 1. Acute hypercapneic and hypoxic respiratory failure, requiring mechanical ventilatory support , not present on admission. Active. - due to asthma exacerbation and possibly viral vs bacterial pneumonia.Not on oxygen at home. - Patient's daughter Susana reports the patient has been intubated 3-4 other times in the past with a minimum of one week stay at the hospital during these times. - Extubated to nasal cannula. - IgE - 220 - with CT otherwise normal - unlikely ABPA, - Procalcitonin/sputum culture/viral PCR/MRSA swab Khan-negative. - Triglycerides wnl 138 (06/26) (Q3Day while on propofol), Lipase wnl 19 (06/26) - CT PE as above. negative for PE 06/25. - Azithromycin started 06/25. - PT ordered. - Solu-Medrol 40 mg every 8H. - Lasix 20 mg IV today before attempted extubation today. 2. Asthma Exacerbation/Acute Bronchospasm, - Continue IV Solu-Medrol,tapered down today - Continue nebulized albuterol scheduled every 4 hours and every hour when necessary. - Continue oxygen - Continue pulmonary toilet to try to avoid mucus plugging - Vest and flutter valve per RT. - Begin guaifenesin and consider antibiotic therapy/respiratory viral testing -Continue azithromycin until tomorrow for anti-inflammatory effect - Large thick secretions noted by RT, sputum cx pending (fungal and bacterial). 3. History of Mucous Plugging/Lung Collapse - Early pulmonary toilet attention from RT with potential vest use and flutter valve. - Consult pulmonology if not improving readily. - Guaifenesin as mucolytic effect prn and scheduled this evening. 4. History of Prediabetes - It is not clear if this is a steroid/chemical diabetes effect or DM type II. - A1c 5.9. Acetaminophen for mild pain when necessary. Bowel regimen Senna and MiraLAX scheduled and PRN. Zofran when necessary for nausea and vomiting. SubQ heparin held for now, on Lovenox. SCDs in place. High-risk medications: IV Fentanyl ICU: Lines: Right IJ, Art line, Drips: 40 Propofol , 50 fentanyl currently weening, off nimbex Disposition: Likely here for 3-4 midnights possibly longer. Dependent upon asthma exacerbation and respiratory status. Will be discharged to home when medically stable Pain Evaluation: Adequate Pain Control VTE Mechanical Devices: Intermittant Pneumatic CD Attending Statement The patient was seen and examined together with Dr. Gill on 06/28/2016 and I agree with the history, exam and plan as outlined in the note above. GETACHEW GILL DO Jun 28, 2016 11:45 Germán Samuels MD Jun 28, 2016 16:25 GETACHEW GILL DO Jun 28, 2016 11:45
[2016-06-28] MEDS: Ondansetron 2 mg/mL 2 mL Inj IVPUSH PRN ×4 (13:36→20:14)
--- NOTE | 2016-06-28 14:21 | PROG NOTE ---
[address] [address] PROGRESS NOTE PATIENT: GAL ESCUDERO : 1970 MR#: [id number] ADMIT: 06/23/2016 JOB ID: [id number] DATE: 06/28/2016 PULMONARY CRITICAL CARE PROGRESS NOTE: The patient is a 45-year-old woman with severe persistent asthma, admitted with asthma exacerbation and acute hypoxic respiratory failure. INTERVAL HISTORY: She did well on her spontaneous breathing trial for about half an hour this morning and then had coughing spells, requiring increasing her sedation and stopping the SBT. REVIEW OF SYSTEMS: Unable to obtain. PHYSICAL EXAMINATION: T-max 37.7, pulse 98, respirations 16, BP 114/60, sats 92% on 50% FiO2. General: Intubated, sedated. Chest: Clear to auscultation. LABORATORIES: Reviewed. WBC 13.4. Chemistry reviewed and normal. ASSESSMENT AND RECOMMENDATIONS: 1. Acute hypoxic hypercarbic respiratory failure. 2. Asthma exacerbation. 3. Severe persistent asthma. A 45-year-old woman with longstanding, severe, poorly controlled asthma presenting with an acute asthma exacerbation with respiratory failure, hypoxia and hypercarbia. Chest x-ray done today shows left lower lobe retrocardiac atelectasis, and she could have mucus plugging. She is doing reasonably well on spontaneous breathing trial, which is sometimes limited with regards to time because of her cough and bronchospasm. I think we should try to extubate her and do aggressive pulmonary toilet with incentive spirometry, Acapella and regular nebs. She may also benefit from intermittent BiPAP. Her steroids are currently at 40 mg IV q.8 h., and she is getting DuoNeb q.4 h. and p.r.n. nebs q.2 h. She is also getting azithromycin, and we should stop this after a five-day course. I explained to the family that there is a chance she may fail extubation and require re-intubation but I thought this was unlikely. CRITICAL CARE TIME: 40 minutes.
--- NOTE | 2016-06-28 16:20 | NUR ---
Evaluation completed. Please go to "Notes" then click on "Assessments and Notes" (bottom left corner of screen). Then select appropriate discipline tab on top of screen.
--- NOTE | 2016-06-28 17:34 | NUR ---
Social Work: Continued Discharge Planning D: Pt discussed in am rounds. Pt has been tolerating spontaneous breathing trials and was extubated today. PT was ordered by pulmonology to assist with pt mobilization and to attempt to clear pt's lungs. At this time, PT has not yet made any recommendations for d/c. A: Pt who is I at baseline. 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 WILVER Denise
--- NOTE | 2016-06-28 18:22 | NUR ---
Bronchospastic with PST today with saturations 88-89%, returned to vent settings for rest, repeat pst and extubation at ~1215 this afternoon. LS wheezy, moderate amounts clear mucoid secretions via ETT. Saturations 88-89 on 15L Oxymask, no significant improvement with cough/deep breathe or encouraged pulmonary toilet. Transitioned to high flow nasal cannula 60%+50L with improved sats 90-91%, improved comfort and pt satisfaction (smiles and relates she is better able to cough up "stuff" without mask on). TF discontinued, residual 5ml this morning, scant gastric drainage while on wall suction prior to extubation. Brisk diuresis following Lasix 20mg today, 3300ml UOP with slight blood tinge this evening. Low grade temp 37.7max. Care explained as given, questions answered for family. Medicated with Zofran 4mg x3 today for intermittent nausea with good effect. Unable to discern whether it is simply nausea or coupled with 'gagging' on secretions.
[2016-06-28] MEDS: 0.9% Sodium Chloride 1,000 ML IV SCH (22:00)
[2016-06-29] VITALS (17 sets, daily range): BP systolic 118–150; BP diastolic 59–86; PULSE 64–79; RESP 12–19; O2SAT 88–95
[2016-06-29] MEDS: Albuterol-Ipratropium 3 mL Inhalation Solution NEB SCH ×7 (00:52→23:25)
[2016-06-29] MEDS: MethylprednisoLONE Sodium Succinate 62.5 mg/mL 2 mL Inj IVPUSH SCH ×3 (01:26→17:05)
[2016-06-29] MEDS: Insulin LISPRO 300 Unit/3 mL Inj SUBQ SCH ×4 (02:30→20:30)
[2016-06-29] MEDS ORDERED: 0.9% Sodium Chloride 500 ML ONE (02:52)
[2016-06-29 04:42] LABS: BASOPHILS % (AUTO) 0.1 % (0-3); EOSINOPHILS % (AUTO) 0 % (0-5); Mean Corpuscular Hemoglobin 27.9 pg (27.0-35.0); Mean Corpuscular Volume 84.4 fL (81-100); NEUTROPHILS % (AUTO) 84.3 % (40-74); Platelet Count 253 bil/L (150-400)
--- NOTE | 2016-06-29 04:58 | NUR ---
Respiratory, Vs as noted. Continues on Hiflow nasal canula with sats 92-94% on 60% fio2 without desaturations. Complained of feeling short of breath during the evening while talking with family. Sats remained low 90s. Encouraged to limit talking. Reinforced cough and deep breathing. Restoril given per request for insomnia with eventual response after family left. Tele sinus rhythm 70s. Afebrile. Smith cath in place with adequate uop.
[2016-06-29] MEDS: Albuterol 2.5 mg/3 mL Inhalation Solution NEB PRN (06:17)
[2016-06-29] MEDS: 0.9% Sodium Chloride 1,000 ML IV SCH (07:17)
[2016-06-29] MEDS: Polyethylene Glycol (PEG) 17 Gm Powder PO SCH (08:17)
[2016-06-29] MEDS: Azithromycin Inj 500 MG in Dextrose 5% w/Vial Mate 250 ML IV SCH (08:25)
--- NOTE | 2016-06-29 09:44 | NUR ---
Evaluation completed. Please go to "Notes" then click on "Assessments and Notes" (bottom left corner of screen). Then select appropriate discipline tab on top of screen.
--- NOTE | 2016-06-29 10:42 | NUR ---
NUTRITION FOLLOW-UP: Assess: 45 YO F with longstanding, severe, poorly controlled asthma, presenting with an acute asthma exacerbation with respiratory failure, hypoxia, and hypercarbia. Chest x-ray showing left lower lobe retrocardiac atelectasis, requiring intubation. Patient was successfully extubated yesterday but was too weak to pass her swallow evaluation. Speech Therapy believes her diet will be able to be advanced relatively quickly. Her enteral feeding was at goal rate while she was intubated; malnutrition not significant concern at this point. PMHX: Asthma, left lower lobe mucous plugging. DIET:NPO. NUTRITION SUPPORT DISCONTINUED: Jevity 1.5 @ goal rate of 45ml/hr. LABS: CO2 30, Glu 130, ALT 78. MEDICATIONS: Solu-medrol, insulin. GI: No BM noted x 6 D. SKIN: No PU per WC, Balaji 13. WEIGHT: 99.9 kg, BMI 35.0 kg/m2, Admit wt: 84.09 kg, IBW: 59.1 kg ESTIMATED NEEDS: BMI (needs updated) Calories: 8863-9726 kcal/day (20-22 kcal/kg Admit BW) Protein: 89-106 g/day (1.5-1.8 g/kg IBW) NUTRITION DIAGNOSIS: 1) Inadequate oral intake related to decreased ability to consume sufficient energy as evidenced by NPO status - PERSISTS. INTERVENTION: 1) Once diet advanced, will add supplements to trays to enhance kcal / protein intake. 2)In the event diet unable to be advanced over the weekend, recommend restart enteral feeding per previous recommendations. MONITOR/EVALUATE: NPO status, diet advance / tolerance, PO intake, labs, GI/nutrition status. Follow per high nutrition risk guidelines.
--- NOTE | 2016-06-29 11:14 | PCM.PNMED ---
Subjective Date of Service Jun 29, 2016 Subjective Ms. Lissette Ash is a 45 year old lady with past medical history significant for 4 admissions over the last 6 years for asthma, with 3-4 prior intubations. She stated upon admission that she has never seen an front desk specialist but wants to know more about why she keeps getting this. Her last episode in September was 10 days in the hospital eventually she experienced left lower lung collapse from mucous plugging that required bronchoscopy to clear. This episode has been going on for 5 days with increasing shortness breath and coughing. Finally the treatments seemed to stop working and she has not been able to sleep for the last 2 nights. In the emergency department she received magnesium, steroids, albuterol with good effect. Her O2 sat is 90-92% on room air, dropping into the 80s with exertion on room air. There has been no fever and the chest x-ray shows no pneumonia. Shortly thereafter patient was requiring increased amounts of oxygen to maintain saturations, and was subsequently intubated. Positive for shortness of breath, wheezing, coughing for 5 days. Negative for fevers, chills , sweats, chest pain, dull pain, nausea, vomiting, diarrhea, blood in stool, dysuria, seizures, rash, joint pain, back pain, hearing loss, new allergies. Prior home medications include Prednisone taper currently at "4 pills "daily, Albuterol by nebulizer, Cetirizine 10 mg today and Twice a day inhaler that is "not Advair ". Non smoker never smoker. Overnight events: No acute overnight events. Tolerated HF O2 at 70%. Today: Patient tolerated extubation yesterday and remains on HF 70% O2 Nasal canula. Asleep this morning but arousable. Off fentanyl and propofol. Exam Vital Signs Vital Sign - Last Date Time Temp Pulse Resp B/P Pulse Ox O2 Delivery O2 Flow Rate FiO2 06/29/16 08:30 Supplement Oxygen 06/29/16 08:30 36.6 78 12 128/64 94 70 06/29/16 08:12 50 Intake and Output 06/28/16 06/28/16 06/29/16 Cumulative From/Thru 15:00 23:00 07:00 06/23/16 09:47 - 06/29/16 06:06 Intake Total 1172 ml 115 ml 93037 ml Output Total 3300 ml 1550 ml 40829 ml Balance -2128 ml -1435 ml 5283 ml Intake Oral 800 ml IV Total 874 ml 115 ml 26820 ml Tube Feeding 183 ml 2597 ml Tube Irrigant 115 ml 776 ml Output Urine Total 3300 ml 1550 ml 48246 ml Gastric Drainage Total 100 ml # Bowel Movements 0 Exam Gen: Asleep and on HF 02. More diaphoretic today. HEENT: Pupils are equally round and reactive to light and accommodation. Extraocular muscles are intact. Sclera are pink and nonicteric. No lymph nodes are felt head, neck, supraclavicular area. JVD is less than 6 cm. No carotid bruits are heard. Card: Heart is regular rate and rhythm without murmur. PULM: Lungs have wheezing throughout. No crackles heard. Abdomen: is soft, bowel sounds positive, nontender, no organomegaly. Breast/pelvic/rectal exams are deferred to primary care office. Neuro exam without noticeable deficit. Reflexes are normal. There is no tremor. Cranial nerves II through XII tested intact. Skin without rash or jaundice. IVs and Medications Medications Reviewed: Medications were reviewed in detail Lab and Diagnostics Result Diagram: 06/29/1642906/29/16429 X-Rays, CTs and MRIs CT ANGIO CHEST PULMONARY EMBOLISM IMPRESSION: 1. No evidence of pulmonary embolism. 2. Dependent changes are present within the left base as well as a 5 mm groundglass like opacity within the right base, overall nonspecific. Dictated by: Cindy Medley M.D. on 06/25/2016 at 11:36 X-RAY CHEST ONE VIEW, PORTABLE IMPRESSION: Stable chest. Dictated by: Gavin Grover [facility] Interpreted: Arielle Jordan MD on 06/26/2016 at 9 :06 Transcribed by: CHERRI on 06/26/2016 at 9:07 X-RAY CHEST ONE VIEW, PORTABLE IMPRESSION: Acute disease is not appreciated in the upright portable chest. Dictated by: Julián Markham M.D Additional Diagnostics ABG DateTimeAnalyzed 07:47:00 -_ pH ____7.353 - 7.350 7.450 pCO2 ___42.7__ -mmHg 35.0 45.0 pO2 ___93.9__ -mmHg 69.0 116 HCO3- ___23.1__ -mmol/L 22.0 26.0 Assessment & Plan Ms. Lissette Ash is a 45 year old lad with past medical history significant for 4 admissions over the last 6 years for asthma, with 3-4 prior intubations. Prior to admission she had 5 days with increasing shortness breath and coughing. Her O2 sat is 90-92% on room air, dropping into the 80s with exertion on room air. There has been no fever and the chest x-ray shows no pneumonia. Shortly thereafter patient was requiring increased amounts of oxygen to maintain saturations, and was subsequently intubated. 1. Acute hypercapneic and hypoxic respiratory failure, requiring mechanical ventilatory support , not present on admission. Active. - due to asthma exacerbation and possibly viral vs bacterial pneumonia.Not on oxygen at home. - Patient's daughter Susana reports the patient has been intubated 3-4 other times in the past with a minimum of one week stay at the hospital during these times. - Extubated to nasal cannula. - IgE - 220 - with CT otherwise normal - unlikely ABPA, - Procalcitonin/sputum culture/viral PCR/MRSA swab Khan-negative. - Triglycerides wnl 138 (06/26) (Q3Day while on propofol), Lipase wnl 19 (06/26) - CT PE as above. negative for PE 06/25. - Azithromycin started 06/25. - PT ordered. - Solu-Medrol 40 mg every 8H. - Extubated yesterday 06/28, on High Flow O2 at 70% 2. Asthma Exacerbation/Acute Bronchospasm, present on admission, Active and improving. - Continue IV Solu-Medrol,tapered down today - Continue nebulized albuterol scheduled every 4 hours and every hour when necessary. - Continue oxygen - Continue pulmonary toilet to try to avoid mucus plugging - Vest and flutter valve per RT. - Begin guaifenesin and consider antibiotic therapy - Continue azithromycin until tomorrow for anti-inflammatory effect - PT ordered, continue Incentive spirometry and encourage cough. 3. History of Mucous Plugging/Lung Collapse - Early pulmonary toilet attention from RT with potential vest use and flutter valve. - Consult pulmonology if not improving readily. - Guaifenesin as mucolytic effect prn and scheduled this evening. 4. History of Prediabetes - It is not clear if this is a steroid/chemical diabetes effect or DM type II. - A1c 5.9. Acetaminophen for mild pain when necessary. Bowel regimen Senna and MiraLAX scheduled and PRN. Zofran when necessary for nausea and vomiting. SubQ heparin held for now, on Lovenox. SCDs in place. High-risk medications: IV Fentanyl ICU: Lines: Right IJ, Art line, Drips: off nimbex, Propofol, fentanyl Disposition: Likely here for 2-3 midnights possibly longer. Dependent upon asthma exacerbation and respiratory status. Will be discharged to home when medically stable Pain Evaluation: Adequate Pain Control VTE Mechanical Devices: Intermittant Pneumatic CD Resuscitation Status: CPR: Attempt Resuscitation Attending Statement The patient was seen and examined together with Dr. Gill on 06/29/2016 and I agree with the history, exam and plan as outlined in the note above. GETACHEW GILL DO Jun 29, 2016 11:13 Germán Samuels MD Jun 29, 2016 16:38
--- NOTE | 2016-06-29 11:49 | DRSVH ---
PROCEDURE: X-RAY CHEST ONE VIEW, PORTABLE ([id number]) INDICATIONS: f/u atelectasis TECHNIQUE: One view of the chest was acquired. COMPARISON: [facility], CR, XR CHEST 1VW (PORTABLE), 06/28/2016, 5:22. [facility], CR, XR CHEST 1VW (PORTABLE), 06/27/2016, 5:48. [facility], CR, XR CHEST 1VW (MAISHA BLE), 06/26/2016, 5:38. FINDINGS: Surgical changes and devices: Right internal jugular vein central venous catheter is present, tip of which is at the cavoatrial junction, as before. Lungs and pleura: No pleural effusions or pneumothorax. Moderate left and mild right basilar airspac e opacity is unchanged. Mediastinum: Mediastinal contours appear normal. Heart size is normal. Bones and chest wall: No suspicious bony lesions. Overlying soft tissues appear unremarkable. IMPRESSION: No change in bibasilar atelectasis versus pneumonia. Dictated by: Geovanny Perez M.D. on 06/29/2016 at 11:42 Approved by: Geovanny Perez M.D. on 06/29/2016 at 11:43
[2016-06-29] MEDS ORDERED: Furosemide 10 mg/mL 4 mL Inj IVPUSH ONE (11:55)
[2016-06-29] MEDS: Ondansetron 2 mg/mL 2 mL Inj IVPUSH PRN (12:08)
--- NOTE | 2016-06-29 12:34 | PROG NOTE ---
[address] [address] PROGRESS NOTE PATIENT: GAL ESCUDERO : 1970 MR#: [id number] ADMIT: 06/23/2016 JOB ID: [id number] DATE: 06/29/2016 PULMONARY CRITICAL CARE PROGRESS NOTE: The patient is a 45-year-old woman with severe persistent poorly controlled asthma, admitted with asthma exacerbation and respiratory failure. INTERVAL HISTORY: She was extubated yesterday. She has had problems with hypoxia and remains on a high-flow nasal cannula since extubation. She has been in bed and appears quite lethargic, minimally interactive. REVIEW OF SYSTEMS: Denies fevers, chills, chest pain. PHYSICAL EXAMINATION: Vital signs reviewed. Temperature 36.6, pulse 78, respirations 12, BP 128/64, sats 94% on 70% FiO2. General: Lethargic, really not very active appearing at this point, not interested in sitting up. Chest: Bilateral wheezing heard. LABORATORIES: Reviewed. WBC 15.3, up from 13.4. Platelets 253, hemoglobin is 12.9. Chemistry reviewed, within normal limits. Procalcitonin remains 0.04. Cultures show urine culture from June 27 with Proteus mirabilis that is pansensitive. IMAGING: Chest x-ray repeated today shows persistent left lower lobe retrocardiac atelectasis. ASSESSMENT AND RECOMMENDATIONS: 1. Acute hypoxic respiratory failure -- extubated on June 28. 2. Severe asthma with asthma exacerbation. 3. Proteus urinary tract infection. 4. Left lower lobe atelectasis. A 45-year-old woman extubated yesterday and currently on high-flow nasal cannula. I really think she needs aggressive pulmonary toilet and improved mobility and strongly encouraged her to use IS but she had difficulty even following simple instructions. I tasked her family with getting her to use IS at least 10 times every hour. She is also getting nebs around the clock and Solu-Medrol 40 IV q.8 h. She is also on azithromycin. I added cefazolin for urinary tract infection as well. We can stop azithromycin after she gets her dose tomorrow. She remains in ICU because of her high-flow oxygen. She is a FULL CODE and on appropriate DVT prophylaxis. CRITICAL CARE TIME: 40 minutes.
[2016-06-29] MEDS: cefTRIAXone Inj 1,000 MG in Dextrose 5% Minibag Plus 50 ML IV SCH (13:25)
--- NOTE | 2016-06-29 14:45 | NUR ---
P: Respiratory Distress I: Pt on high flow. Pt desat 88% for quite some time. IS 1000 and acapella done. FiO2 increased to 80% and 50Liters. PT here and pt sat up on side of the bed. Increased strength from yesterday, but unable to stand. Bath and linen change completed. Rt radial arterial line patent. RIJ TLC patent. No Bm. Smith patent and drained large amount light yellow urine after Lasix 40 mg IV given. Pt unable to have enough sats to dc Smith so will have to re-assess tomorrow. Turned Q 2 hours with assist. Blood sugars stable and no coverage needed. Pt c/o nausea with 100cc yellow emesis. Medicated with Zofran 8 mg IV with some relief. Swallow exam done but due to nausea po not given. E: Improving S: Alert and Oriented. Able to use call light appropriately. Family at bedside. Frequent rounding.
[2016-06-30] VITALS (16 sets, daily range): BP systolic 115–124; BP diastolic 63–83; PULSE 61–86; RESP 13–22; O2SAT 89–96
[2016-06-30] MEDS: Insulin LISPRO 300 Unit/3 mL Inj SUBQ SCH ×4 (00:24→20:27)
[2016-06-30] MEDS: MethylprednisoLONE Sodium Succinate 62.5 mg/mL 2 mL Inj IVPUSH SCH ×2 (00:24→08:01)
[2016-06-30] MEDS: 0.9% Sodium Chloride 1,000 ML IV SCH (00:24)
[2016-06-30] MEDS: Albuterol-Ipratropium 3 mL Inhalation Solution NEB SCH ×6 (04:21→23:39)
[2016-06-30 04:52] LABS: Mean Corpuscular Hemoglobin 27.9 pg (27.0-35.0); Mean Corpuscular Volume 81.7 fL (81-100); Platelet Count 292 bil/L (150-400)
[2016-06-30 05:10] LABS: BASOPHILS % (AUTO) 0.2 % (0-3); EOSINOPHILS % (AUTO) 0 % (0-5); NEUTROPHILS % (AUTO) 83.4 % (40-74)
--- NOTE | 2016-06-30 06:19 | NUR ---
Resp / GI / Activity Patient remains on high flow, titrated from 80-85% after SpO2 remains at 88-89%. 50L. SpO2 up to 93%. Patient using both acapella and IS. No nausea, abdominal discomfort, or BM. Patient able to assist with turns in bed without changes in her VS or SpO2 levels.
[2016-06-30] MEDS: Albuterol 2.5 mg/3 mL Inhalation Solution NEB PRN (06:21)
[2016-06-30] MEDS: Azithromycin Inj 500 MG in Dextrose 5% w/Vial Mate 250 ML IV SCH (08:04)
[2016-06-30] MEDS: Polyethylene Glycol (PEG) 17 Gm Powder PO SCH (08:30)
[2016-06-30] MEDS ORDERED: Furosemide 10 mg/mL 4 mL Inj IVPUSH ONE (10:40)
[2016-06-30] MEDS: cefTRIAXone Inj 1,000 MG in Dextrose 5% Minibag Plus 50 ML IV SCH (12:09)
--- NOTE | 2016-06-30 13:07 | PCM.PNMED ---
Subjective Date of Service Jun 30, 2016 Subjective Continues to require high high FIO2 via high flow,FIO2 85 % today, dyspnea and wheezing slowly improving. Afebrile Exam Vital Signs Vital Sign - Last Date Time Temp Pulse Resp B/P Pulse Ox O2 Delivery O2 Flow Rate FiO2 06/30/16 12:23 77 20 90 Nasal Cannula 50 85 06/30/16 12:10 36.9 117/77 Intake and Output 06/29/16 06/29/16 06/30/16 Cumulative From/Thru 15:00 23:00 07:00 06/23/16 09:47 - 06/30/16 06:17 Intake Total 397 ml 128 ml 17425 ml Output Total 3500 ml 950 ml 24215 ml Balance -3103 ml -822 ml 1358 ml Intake Oral 800 ml IV Total 397 ml 128 ml 59774 ml Tube Feeding 2597 ml Tube Irrigant 776 ml Output Urine Total 3500 ml 950 ml 08833 ml Gastric Drainage Total 100 ml # Bowel Movements 0 Exam Gen: Alert and oriented 3 on HF 02. HEENT: Pupils are equally round and reactive to light and accommodation. Extraocular muscles are intact. Sclera are pink and nonicteric. No lymph nodes are felt head, neck, supraclavicular area. JVD is less than 6 cm. No carotid bruits are heard. Card: Heart is regular rate and rhythm without murmur. PULM: Lungs have wheezing throughout. No crackles heard. Abdomen: is soft, bowel sounds positive, nontender, no organomegaly. Breast/pelvic/rectal exams are deferred to primary care office. Neuro exam without noticeable deficit. Reflexes are normal. There is no tremor. Cranial nerves II through XII tested intact. Skin without rash or jaundice. IVs and Medications Medications Reviewed: Medications were reviewed in detail Lab and Diagnostics Result Diagram: 06/30/16 0430 06/30/16 0430 X-Rays, CTs and MRIs CT ANGIO CHEST PULMONARY EMBOLISM IMPRESSION: 1. No evidence of pulmonary embolism. 2. Dependent changes are present within the left base as well as a 5 mm groundglass like opacity within the right base, overall nonspecific. Dictated by: Cindy Medley M.D. on 06/25/2016 at 11:36 X-RAY CHEST ONE VIEW, PORTABLE IMPRESSION: Stable chest. Dictated by: Gavin Grover RRA Interpreted: Arielle Jordan MD on 06/26/2016 at 9 :06 Transcribed by: CHERRI on 06/26/2016 at 9:07 X-RAY CHEST ONE VIEW, PORTABLE IMPRESSION: Acute disease is not appreciated in the upright portable chest. Dictated by: Julián Markham M.D Additional Diagnostics ABG DateTimeAnalyzed 07:47:00 -_ pH ____7.353 - 7.350 7.450 pCO2 ___42.7__ -mmHg 35.0 45.0 pO2 ___93.9__ -mmHg 69.0 116 HCO3- ___23.1__ -mmol/L 22.0 26.0 Assessment & Plan Ms. Lissette Ash is a 45 year old lad with past medical history significant for 4 admissions over the last 6 years for asthma, with 3-4 prior intubations. Prior to admission she had 5 days with increasing shortness breath and coughing. Her O2 sat is 90-92% on room air, dropping into the 80s with exertion on room air. There has been no fever and the chest x-ray shows no pneumonia. Shortly thereafter patient was requiring increased amounts of oxygen to maintain saturations, and was subsequently intubated. 1. Acute hypercapneic and hypoxic respiratory failure, requiring mechanical ventilatory support , not present on admission. Active. - due to asthma exacerbation and possibly viral vs bacterial pneumonia.Not on oxygen at home. - Patient's daughter Susana reports the patient has been intubated 3-4 other times in the past with a minimum of one week stay at the hospital during these times. - Extubated to nasal cannula. - IgE - 220 - with CT otherwise normal - unlikely ABPA, - Procalcitonin/sputum culture/viral PCR/MRSA swab Khan-negative. - CT PE as above. negative for PE 06/25. - Azithromycin started 06/25. discontinued today. ceftriaxone started 06/29 for Proteus UTI. - PT ordered. - Solu-Medrol 40 mg every 8H. May consider tapering tomorrow - Extubated 06/28, on High Flow O2 at 85 % 2. Asthma Exacerbation/Acute Bronchospasm, present on admission, Active and improving. - Continue IV Solu-Medrol - Continue nebulized albuterol scheduled every 4 hours and every hour when necessary. - Continue oxygen - Continue pulmonary toilet to try to avoid mucus plugging - Vest and flutter valve per RT. - Begin guaifenesin and consider antibiotic therapy -Treated with azithromycin for anti-inflammatory effect - PT ordered, continue Incentive spirometry and encourage cough. 3.Proteus UTI -started ceftriaxone 06/29 -remove mercado 4. History of Mucous Plugging/Lung Collapse - Early pulmonary toilet attention from RT with potential vest use and flutter valve. - Consult pulmonology if not improving readily. - Guaifenesin as mucolytic effect prn and scheduled this evening. 5. History of Prediabetes - It is not clear if this is a steroid/chemical diabetes effect or DM type II. - A1c 5.9. Acetaminophen for mild pain when necessary. Bowel regimen Senna and MiraLAX scheduled and PRN. Zofran when necessary for nausea and vomiting. SubQ heparin held for now, on Lovenox. SCDs in place. Disposition: Likely here for 2-3 midnights possibly longer. Dependent upon asthma exacerbation and respiratory status. Will be discharged to home when medically stable VTE Mechanical Devices: Intermittant Pneumatic CD Resuscitation Status: CPR: Attempt Resuscitation Germán Samuels MD Jun 30, 2016 13:06
--- NOTE | 2016-06-30 14:11 | PROG NOTE ---
[address] [address] PROGRESS NOTE PATIENT: GAL ESCUDERO : 1970 MR#: [id number] ADMIT: 06/23/2016 JOB ID: [id number] DATE: 06/30/2016 PULMONARY CRITICAL CARE PROGRESS NOTE: The patient is a 45-year-old woman with severe persistent poorly controlled asthma, admitted with asthma exacerbation and acute hypoxic respiratory failure. INTERVAL HISTORY: Despite being extubated a couple of days ago, she remains on high-flow nasal cannula now up to 85% FiO2. She was only able to sit at the edge of the bed yesterday and she is still lying in bed, right now. According to nursing staff, she only uses Acapella if encouraged to do so. REVIEW OF SYSTEMS: Still coughing, short of breath. No fevers, chills. PHYSICAL EXAMINATION: Vital signs reviewed. Temperature 37, pulse 79, respirations 22, BP 122/69, sats 91% on 85% FiO2 via high flow nasal cannula at 50 L. General: Lethargic appearing although sitting in bed. Chest is clear to auscultation and I do not hear any wheezing. LABORATORIES: Reviewed. WBC up to 16.4. Chemistry within normal limits. Cultures: Urine culture with Proteus mirabilis. Chest x-ray not done today. I will order one. ASSESSMENT AND RECOMMENDATIONS: 1. Acute asthma exacerbation. 2. Severe persistent asthma. 3. Acute hypoxic respiratory failure on mechanical ventilation from June 24 until June 28. 4. Proteus urinary tract infection. The patient is a 45-year-old woman with severe persistent poorly controlled asthma, admitted with asthma exacerbation and respiratory failure. She admits that she was taking prednisone practically every month and was only off prednisone for brief periods of time at baseline. She is currently on Solu-Medrol 40 IV q.8, down from 125 q.8 when initially admitted. She is on high-flow nasal cannula at 85% FiO2 which is actually getting worse. The only abnormality on chest x-ray is her left lower lobe atelectasis/retrocardiac atelectasis that has been seen for the last few days. We have been trying to get her to be aggressive with pulmonary toilet but she is still somewhat lethargic and not really participating. She is not receiving any meds that would make her sedated. I would like her to work more aggressively with physical therapy and pulmonary toilet to open up that left lower lobe. I have also decided to increase her steroids back up to Solu-Medrol 125 q.12 h. She is getting last dose of azithromycin today. She was started on ceftriaxone yesterday, i.e., June 29, for Proteus urinary tract infection. I am also adding Montelukast today. We will repeat another dose of IV Lasix today. She remains in ICU because of high-flow nasal cannula. Dr. Lynch takes over tomorrow. CRITICAL CARE TIME: 45 minutes.
--- NOTE | 2016-06-30 14:55 | NUR ---
Respiratory/GI//diet Continues on high flow nasal cannula with high 02 demand. Titrated patient down to 80% on 45L while sleeping, unable to maintain Sp02 > 88% once awake, titrated back up to 85% on 50L per HF NC. Up Up to chair with assist x 1, desaturated down to mid 80s while standing, sats returned to 89-91% once resting in chair. Pt not keen on using ISP and acapella independently, continue to encouraged & assist with pulmonary hygiene. Cardiac status stable, SR per monitor. Normotensive. Right arterial line d/c. 40mg IV lasix administered as scheduled, 1350cc urine out per mercado. Denies nausea. Advanced to STEM diet, pt tolerating. Will continue to monitor.
[2016-06-30] MEDS ORDERED: MethylprednisoLONE Sodium Succinate 62.5 mg/mL 2 mL Inj IVPUSH SCH (20:30)
[2016-07-01] VITALS (18 sets, daily range): BP systolic 111–121; BP diastolic 62–76; PULSE 62–96; RESP 12–21; O2SAT 90–98
[2016-07-01] MEDS: Insulin LISPRO 300 Unit/3 mL Inj SUBQ SCH ×4 (02:30→20:30)
[2016-07-01] MEDS: 0.9% Sodium Chloride 1,000 ML IV SCH (04:25)
[2016-07-01] MEDS: Albuterol-Ipratropium 3 mL Inhalation Solution NEB SCH ×3 (04:30→11:59)
--- NOTE | 2016-07-01 04:41 | NUR ---
Resp Patient remains on high flow at 80% and 45L. SpO2 93-96% while patient is resting or sleeping. When family in room and patient is interacting with them it usually is 88-90% but does drop down to 86% a couple of times. Patient does not appear anxious or short of breath with these desaturations. No desaturations noted when patient is turning herself in bed. Patient continues to have cough, minimally productive tonight. IS and Acapella at bedside, patient expresses discouragement that she is not improving, encouraged to continue to use them, rational behind using them explained again. Carenotes printed off in German and Turkmen for patient in case she wants reinforcement of directions on how to use it.
[2016-07-01] MEDS: Polyethylene Glycol (PEG) 17 Gm Powder PO SCH (08:30)
[2016-07-01] MEDS ORDERED: Albuterol 0.5% (5mg/mL) 20 mL Inhalation Solution NEB ONE (09:10)
[2016-07-01] MEDS: MethylprednisoLONE Sodium Succinate 62.5 mg/mL 2 mL Inj IVPUSH SCH ×3 (09:11→21:18)
--- NOTE | 2016-07-01 10:29 | NUR ---
NUTRITION FOLLOW-UP: Assess: 45 YO F with longstanding, severe, poorly controlled asthma, presenting with an acute asthma exacerbation with respiratory failure, hypoxia, and hypercarbia. Patient was successfully extubated 3/. Speech Therapy has placed her on a stimulation diet /. No PO has been recorded yet. Pt has not had a BM yet but she refused Miralax. Wt is trending back down towards admit wt. PMHX: Asthma, left lower lobe mucous plugging. DIET: Stimulation LABS: Reviewed. Cl 96, Bun 28, Glu 121, ALT 75, Alb 3.7 MEDICATIONS: Solu-medrol, insulin, Zofran. Pt refused miralax GI: No BM noted x 8 D. SKIN: No PU per WC, Balaji 18. WEIGHT: 85.8kg, BMI 30.5 kg/m2, Admit wt: 84.09 kg, IBW: 59.1 kg ESTIMATED NEEDS: BMI (needs updated 07/01/16) Calories: 5949-9126 kcal/day (20-22 kcal/kg BW) Protein: 70-90 g/day (1.2-1.5 g/kg IBW) NUTRITION DIAGNOSIS: 1) Inadequate oral intake related to decreased ability to consume sufficient energy as evidenced by NPO status IMPROVING 2) Chew/swallow difficulty related to respiratory distress/weakness as evidence by need for stimulation diet and pt reporting fear of eating/drinking. INTERVENTION: 1) Will monitor for PO tolerance. Advance diet per ST 2) Once diet advanced past stimulation, will assess need for snacks/supps MONITOR/EVALUATE: diet advance / tolerance, ST, PO intake, labs, GI/nutrition status. Follow per high nutrition risk guidelines.
[2016-07-01] MEDS: Albuterol 2.5 mg/3 mL Inhalation Solution NEB SCH ×8 (11:30→23:30)
--- NOTE | 2016-07-01 12:46 | NUR ---
Social Work Note: Continued Discharge Planning Data& Assessment: Per MD in morning rounds, pt is not medically ready for discharge at this time. Pt is still requiring IV Steroids and on high flow 02. SW met with pt and pt family at bedside to discuss discharge planning. Per PT, pt requires SNF at time of discharge, however pt Medicaid insurance coverage is still pending and not active at this time. Pt is appropriate for [facility] swing bed referral for ongoing strengthening and vital monitoring, among other potential discharge needs contributing to her recovery. Pt and pt family agreeable for referral to be sent to [facility] for possible acceptance. Pt and pt family deny any other needs at this time. SW to continue to follow. Plan: Anticipated discharge to [facility] Swing Bed program pending acceptance, when medically ready for discharge. Pt and pt family deny any other needs at this time. SW to continue to follow. WILVER Anders
[2016-07-01] MEDS: cefTRIAXone Inj 1,000 MG in Dextrose 5% Minibag Plus 50 ML IV SCH (12:56)
--- NOTE | 2016-07-01 18:24 | NUR ---
ACTIVITY/RESPIRATORY Patient up w/ PT this morning, reports generalized weakness and does have some difficulty w/ transferring, but overall tolerated well. SpO2 decreased to 80%, so RT increased FiO2 to 100% while working w/ PT, decreased slowly after PT, as patient's respiratory status recovered from activity. She is currently on 60% FiO2 and 45 LPM, tolerating well. Will continue to monitor vitals and respiratory status.
--- NOTE | 2016-07-01 19:15 | PROG NOTE ---
[address] [address] PROGRESS NOTE PATIENT: GAL ESCUDERO : 1970 MR#: [id number] ADMIT: 06/23/2016 JOB ID: [id number] DATE: 07/01/2016 PROBLEM: Status asthmaticus. SUBJECTIVE: The patient continues to complain of shortness of breath overnight. Continues to have cough, flu-like symptoms and nasal congestion. No chest pain, either pleuritic or otherwise. No heartburn. No nasal drainage. No soreness in her throat. OBJECTIVE: Temperature 36.7, pulse 82, respiratory rate 16, blood pressure 118/62. O2 sat on FiO2 0.8 with 45 L flow via high-flow O2 mask is 90%. General appearance: No acute distress. High-flow nasal cannula in place. Complains of shortness of breath on assuming the supine position. Heart: Regular rhythm. Heart tones normal. Chest: Moderately decreased breath sounds. Inspiratory wheezes. Significantly diminished breath sounds with poor air entry. No use of accessory muscles. Abdomen: Soft, nondistended, nontender. Bowel tones present. Extremities: No cyanosis or pretibial edema. LABORATORY DATA: None. ASSESSMENT: Status asthmaticus. Doing rather poorly. Steroids were increased yesterday. I think at this point we should become more aggressive with use of inhaled bronchodilators as well as increased steroids. Montelukast was started yesterday but that will take while to have effect. Immunoglobulin E is only mildly elevated. Not the levels one would expect with ABPA, but perhaps she might be a candidate for anti-IgE therapy such as omalizumab in the future. If high-dose steroids and inhaled bronchodilators are ineffective then one might consider alternative regimens such as theophylline. PLAN: 1. Albuterol 20 mg via nebulizer now followed by DuoNeb 1 vial by nebulizer q.2 h. while awake and q.2 h. p.r.n. dyspnea at night. 2. Increase Solu-Medrol to 125 mg slow IV push q.6 h.
--- NOTE | 2016-07-01 19:22 | PCM.PNMED ---
Subjective Date of Service Jul 01, 2016 Subjective Hospital Day 9 Overnight: Patient remains on high flow at 80% and 45L. SpO2 93-96% while patient is resting or sleeping. No acute events otherwise noted. Today: Patient states that she has noticed a change in her sputum color, which appears to be changing from darker to a light yellow. She states that she is urinating normally however has not had a bowel movement in days. She states that this is not unusual for her as she can often go several days normally without a BM. She denies fever and chills. She understands why we will be increasing her steroids today. Reports from pulmonary ICU team state that the patient has been intubated up to 5 times within the last 6 years. She will be considered for an outpatient pulmonary evaluation for refractor asthma however the patient appears to be noncompliant with outpatient medication. Exam Vital Signs Vital Sign - Last Date Time Temp Pulse Resp B/P Pulse Ox O2 Delivery O2 Flow Rate FiO2 07/01/16 04:30 63 16 94 highflow 80 07/01/16 04:30 45 07/01/16 04:14 37.2 113/64 Intake and Output 06/30/16 06/30/16 07/01/16 Cumulative From/Thru 15:00 23:00 07:00 06/23/16 09:47 - 07/01/16 04:31 Intake Total 310 ml 71159 ml Output Total 400 ml 13484 ml Balance -90 ml 1268 ml Intake Oral 200 ml 1000 ml IV Total 110 ml 71538 ml Tube Feeding 2597 ml Tube Irrigant 776 ml Output Urine Total 400 ml 92651 ml Gastric Drainage Total 100 ml # Bowel Movements 0 Exam Gen: General alert and oriented, cooperative in no acute distress on high flow nasal canula, patient has a rasp in her voice consistent with post intubation HEENT: Pupils are equally round and reactive to light and accommodation. Extraocular muscles are intact. Sclera are pink and nonicteric. Neck: No lymph nodes are felt head, neck, supraclavicular area, no JVD CV: Heart is regular rate and rhythm without murmur, rubs or gallops PULM: Lungs have wheezing throughout with decreased breath sounds significantly improved after 1 hour albuterol nebulizer. No crackles heard. Abdomen: soft, normoactive bowel sounds, nontender, no organomegaly. : No mercado in place Extremities: no cyanosis edema or clubbing, pulses intact at dorsalis pedis and radial bilaterally Neuro: exam without noticeable deficit. Cranial nerves II through XII tested intact. Skin: no rash or jaundice. Psych: Normal mood and affect Lab and Diagnostics Result Diagram: 06/30/1642906/30/16429 X-Rays, CTs and MRIs CT ANGIO CHEST PULMONARY EMBOLISM IMPRESSION: 1. No evidence of pulmonary embolism. 2. Dependent changes are present within the left base as well as a 5 mm groundglass like opacity within the right base, overall nonspecific. Dictated by: Cindy Medley M.D. on 06/25/2016 at 11:36 X-RAY CHEST ONE VIEW, PORTABLE IMPRESSION: Stable chest. Dictated by: Gavin MILLIGAN Interpreted: Arielle Jordan MD on 06/26/2016 at 9 :06 Transcribed by: CHERRI on 06/26/2016 at 9:07 X-RAY CHEST ONE VIEW, PORTABLE IMPRESSION: Acute disease is not appreciated in the upright portable chest. Dictated by: Julián Markham M.D Additional Diagnostics ABG DateTimeAnalyzed 07:47:00 -_ pH ____7.353 - 7.350 7.450 pCO2 ___42.7__ -mmHg 35.0 45.0 pO2 ___93.9__ -mmHg 69.0 116 HCO3- ___23.1__ -mmol/L 22.0 26.0 Assessment & Plan Ms. Lissette Ash is a 45 year old lad with past medical history significant for 4 admissions over the last 6 years for asthma, with 3-4 prior intubations. Prior to admission she had 5 days with increasing shortness breath and coughing. Her O2 sat is 90-92% on room air, dropping into the 80s with exertion on room air. There has been no fever and the chest x-ray shows no pneumonia. Shortly thereafter patient was requiring increased amounts of oxygen to maintain saturations, and was subsequently intubated. Hospital Day 9 1. Acute hypercapneic and hypoxic respiratory failure, not present on admission. Active. - due to asthma exacerbation and possibly viral vs bacterial pneumonia. Not on oxygen at home. - Patient's daughter Susana reports the patient has been intubated 3-4 other times in the past with a minimum of one week stay at the hospital during these times. - Extubated to nasal cannula, Extubated 06/28, on High Flow O2 45l/m at 80% - IgE - 220 - with CT otherwise normal - unlikely ABPA, - Procalcitonin/sputum culture/viral PCR/MRSA swab Khan-negative. - CT PE as above. negative for PE 06/25. - Azithromycin started 06/25. discontinued 06/29. - PT ordered. - Consult pulmonology appreciate recommendations - DC Solu-Medrol 40 mg every 8H. - Solumedrol increased to 125mg Q6hrs 2. Asthma Exacerbation/Acute Bronchospasm, present on admission, Active and improving. - Continue IV Solu-Medrol - Continue nebulized albuterol scheduled every 4 hours and every hour when necessary. - Continue oxygen - Continue pulmonary toilet to try to avoid mucus plugging - Vest and flutter valve per RT. - Begin guaifenesin and consider antibiotic therapy -Treated with azithromycin for anti-inflammatory effect - PT ordered, continue Incentive spirometry and encourage cough. 3. Urinary Tract infection, not present on admission, treated - ceftriaxone started 06/29 for Proteus UTI. - removed mercado 4. History of Mucous Plugging/Lung Collapse - Early pulmonary toilet attention from RT with potential vest use and flutter valve. - Consult pulmonology appreciate recommendations - Guaifenesin as mucolytic effect prn and scheduled 5. History of Prediabetes - It is not clear if this is a steroid/chemical diabetes effect or DM type II. - A1c 5.9. Acetaminophen for mild pain when necessary. Bowel regimen Senna and MiraLAX scheduled and PRN. Zofran when necessary for nausea and vomiting. DVT prophylaxis: Lovenox. SCDs in place. Disposition: Likely here for another day with discharge on 07/03. Dependent upon asthma exacerbation and respiratory status. Will be discharged to home when medically stable VTE Mechanical Devices: Intermittant Pneumatic CD Resuscitation Status: CPR: Attempt Resuscitation Attending Statement The patient was seen and examined together with Dr. Velazquez on 07/01/2016 and I agree with the history, exam and plan as outlined in the note above. . Rc Velazquez DO Jul 01, 2016 06:55 Bob Roy MD Jul 02, 2016 07:30
[2016-07-02] VITALS (20 sets, daily range): BP systolic 114–129; BP diastolic 60–86; PULSE 70–100; RESP 14–24; O2SAT 89–98
[2016-07-02] MEDS: Albuterol 2.5 mg/3 mL Inhalation Solution NEB SCH ×7 (01:37→14:20)
[2016-07-02] MEDS: Insulin LISPRO 300 Unit/3 mL Inj SUBQ SCH ×4 (02:30→20:30)
[2016-07-02] MEDS: MethylprednisoLONE Sodium Succinate 62.5 mg/mL 2 mL Inj IVPUSH SCH ×4 (03:09→20:50)
[2016-07-02 03:31] LABS: BASOPHILS % (AUTO) 0.1 % (0-3); EOSINOPHILS % (AUTO) 0 % (0-5); MONOCYTES % (AUTO) 3.4 % (4-12); Mean Corpuscular Hemoglobin 27.7 pg (27.0-35.0); Mean Corpuscular Volume 82.3 fL (81-100); NEUTROPHILS % (AUTO) 87.1 % (40-74); Platelet Count 243 bil/L (150-400)
[2016-07-02] MEDS: 0.9% Sodium Chloride 1,000 ML IV SCH ×2 (04:37→08:03)
--- NOTE | 2016-07-02 05:14 | NUR ---
Sleep Pt reports goal of care is to get better sleep. Care clustered for limited interruption. Reports getting adequate sleep. care ongoing
[2016-07-02] MEDS: Polyethylene Glycol (PEG) 17 Gm Powder PO SCH (08:02)
[2016-07-02] MEDS: Albuterol 2.5 mg/3 mL Inhalation Solution NEB PRN (08:05)
--- NOTE | 2016-07-02 08:17 | DRSVH ---
PROCEDURE: X-RAY CHEST ONE VIEW, PORTABLE ([id number]) INDICATIONS: acute respiratory failure TECHNIQUE: One view of the chest was acquired. COMPARISON: [facility], CR, XR CHEST 1VW (PORTABLE), 06/29/2016, 11:23. FINDINGS: Surgical changes and devices: Right internal jugular vein central venous catheter is present, tip of which is at the cavoatrial junction, as before. Lungs and pleura: No pleural effusions or pneumothorax. Mild left and right basilar airspace opacit y is unchanged. Mediastinum: Mediastinal contours appear normal. Heart size is normal. Bones and chest wall: No suspicious bony lesions. Overlying soft tissues appear unremarkable. IMPRESSION: Bibasilar atelectasis versus aspiration or pneumonia, not significantly changed. Correl ate clinically. Dictated by: Gavin Grover RRA Interpreted: Cindy Medley MD on 07/02/2016 at 8:15 Transcribed by: MAXIMINO on 07/02/2016 at 8:16 Approved by: Cindy Medley M.D. on 07/04/2016 at 16:06
--- NOTE | 2016-07-02 09:16 | NUR ---
Faxed referral to [facility] per [facility] request.
--- NOTE | 2016-07-02 10:59 | PCM.PNMED ---
Subjective Date of Service Jul 02, 2016 Subjective Pulmonary consult: Attending Dr. Lynhc. Consult requested by Dr. Velazquez Ms. Ash is a 45 year old female with severe persistent poorly controlled asthma who was admitted for an asthma exacerbation and acute hypoxic respiratory failure. This is her second admission in the last year due to an asthma exacerbation. During this hospital course patient was intubated secondary to hypoxic respiratory failure, subsequent extubation. Overnight patient reports that her breathing continues to improve, she still endorses a shortness of breath though states the medications have helped. Denies headache, visual changes, cardiac related chest pain nausea, vomiting. Exam Vital Signs Vital Sign - Last Date Time Temp Pulse Resp B/P Pulse Ox O2 Delivery O2 Flow Rate FiO2 07/02/16 10:09 90 18 92 60 07/02/16 08:15 Supplement Oxygen 07/02/16 07:55 37.1 116/67 07/02/16 05:13 45 Intake and Output 07/01/16 07/01/16 07/02/16 Cumulative From/Thru 15:00 23:00 07:00 06/23/16 09:47 - 07/02/16 06:27 Intake Total 679 ml 714 ml 17813 ml Output Total 650 ml 450 ml 14263 ml Balance 29 ml 264 ml 1561 ml Intake Oral 495 ml 600 ml 2095 ml IV Total 184 ml 114 ml 32133 ml Tube Feeding 2597 ml Tube Irrigant 776 ml Output Urine Total 650 ml 450 ml 78715 ml Gastric Drainage Total 100 ml # Bowel Movements 0 0 0 Exam General: Patient sitting up in bed in no acute distress, high flow O2 via nasal cannula in place, well-developed, appropriately interactive HEENT: Normocephalic, atraumatic. External ears without defect. Pupils equal, round, and reactive to light and accommodation. Neck: Supple with full range of motion. No jugular venous distension. No bruits. Cardiovascular: Regular rate and rhythm with no murmurs, rubs, or gallops appreciated Pulmonary: Diffuse wheezing throughout lung graves, poor air movement with decreased breath sounds. No crackles. No use of accessory muscles Abdomen: Soft, nontender, nondistended. Extremities: No edema, or lymphadenopathy appreciated. Skin: Normal temperature, turgor, and texture Neurological: Cranial nerves grossly intact. Psychiatric: Normal mood and affect. Alert and oriented to person, place, and time. Lab and Diagnostics Result Diagram: 07/02/1631407/02/16314 X-Rays, CTs and MRIs CT ANGIO CHEST PULMONARY EMBOLISM IMPRESSION: 1. No evidence of pulmonary embolism. 2. Dependent changes are present within the left base as well as a 5 mm groundglass like opacity within the right base, overall nonspecific. Dictated by: Cindy Medley M.D. on 06/25/2016 at 11:36 X-RAY CHEST ONE VIEW, PORTABLE IMPRESSION: Stable chest. Dictated by: Gavin MILLIGAN Interpreted: Arielle Jordan MD on 06/26/2016 at 9 :06 Transcribed by: CHERRI on 06/26/2016 at 9:07 X-RAY CHEST ONE VIEW, PORTABLE IMPRESSION: Acute disease is not appreciated in the upright portable chest. Dictated by: Julián Markham M.D Additional Diagnostics ABG DateTimeAnalyzed 07:47:00 -_ pH ____7.353 - 7.350 7.450 pCO2 ___42.7__ -mmHg 35.0 45.0 pO2 ___93.9__ -mmHg 69.0 116 HCO3- ___23.1__ -mmol/L 22.0 26.0 Assessment & Plan Ms. Ash is a 45 year old with PMH significant for 4 admissions over the last 6 years for asthma, with 3-4 prior intubations. Prior to admission she had 5 days with increasing shortness breath and coughing. Her O2 sat is 90-92% on room air, dropping into the 80s requiring intubation during this hospital admission. Thus far Pt has been a-febrile for the last 4 days. Chest x-ray shows no evidence of pneumonia. # Status asthmaticus. Present on admission. Patient continues to improve responding well to increased dosing frequency of her steroids and inhaled broncho-dilators (every 2). This has been increased to 10 mg every 2 Montelukast was started 2 days ago consider alternative regimens such as theophylline if patient does not improve. Note her IgE levels is mildly elevated total index for suspicion of ABPA or other syndrome remains low. Consider anti-IgE therapy such as omalizumab as an outpatient. Her current admission is most likely due to noncompliance with outpatient medication regimen and she continues to steadily improve with hospital administration of steroids and inhaled bronchodilators as well as montelukast. Patient is seen by physical therapy and shown to desaturate even while moving to bedside chair, recommend continuation of physical therapy intervention for improved physical conditioning. Repeat chest x-ray today still shows bibasilar atelectasis versus aspiration or pneumonia, not significantly changed. - Albuterol 10 mg via nebulizer now followed by DuoNeb 1 vial by nebulizer q.2 h. while awake and q.2 h. p.r.n. dyspnea at night. - Solu-Medrol to 125 mg slow IV push q.6 h. - Continue pulmonary toilet - Continue montelukast 10 mg at bedtime - Vest and flutter valve per RT - Guaifenesin - Continue physical therapy VTE Mechanical Devices: Intermittant Pneumatic CD Resuscitation Status: CPR: Attempt Resuscitation Attending Statement The patient was seen and examined together with Dr. España on 07/02/2016 and I agree with the history, exam and plan as outlined in the note above. KELLY ESPAÑA DO Jul 02, 2016 10:59 Henry Lynch MD Jul 10, 2016 10:55 improving. - Continue IV Solu-Medrol - Continue nebulized albuterol scheduled every 4 hours and every hour when necessary. - Continue oxygen - Continue pulmonary toilet to try to avoid mucus plugging - Vest and flutter valve per RT. - Begin guaifenesin and consider antibiotic therapy -Treated with azithromycin for anti-inflammatory effect - PT ordered, continue Incentive spirometry and encourage cough. 3. Urinary Tract infection, not present on admission, treated - ceftriaxone started 06/29 for Proteus UTI. - removed mercado 4. History of Mucous Plugging/Lung Collapse - Early pulmonary toilet attention from RT with potential vest use and flutter valve. - Consult pulmonology appreciate recommendations - Guaifenesin as mucolytic effect prn and scheduled 5. History of Prediabetes - It is not clear if this is a steroid/chemical diabetes effect or DM type II. - A1c 5.9. Acetaminophen for mild pain when necessary. Bowel regimen Senna and MiraLAX scheduled and PRN. Zofran when necessary for nausea and vomiting. DVT prophylaxis: Lovenox. SCDs in place. Disposition: Likely here for another day with discharge on 07/03. Dependent upon asthma exacerbation and respiratory status. Will be discharged to home when medically stable VTE Mechanical Devices: Intermittant Pneumatic CD Resuscitation Status: CPR: Attempt Resuscitation KELLY ESPAÑA DO Jul 02, 2016 10:59
[2016-07-02] MEDS: cefTRIAXone Inj 1,000 MG in Dextrose 5% Minibag Plus 50 ML IV SCH (12:06)
[2016-07-02] MEDS ORDERED: Albuterol 2.5 mg/3 mL Inhalation Solution NEB SCH (17:30)
[2016-07-02] MEDS: Albuterol 0.5% (5mg/mL) 20 mL Inhalation Solution NEB SCH ×3 (17:58→22:01)
--- NOTE | 2016-07-02 18:29 | NUR ---
ACTIVITY/FATIGUE/RESPIRATORY Patient ambulated to chair w/ PT today, remains weak from baseline, but states she feels as though she's improving. Was only able to sit up in chair for half hour, then stated she felt extremely fatigued, and requested to get back in bed. Patient's respiratory status continued to decompensate while she was up in the chair, so helped her back to bed and turned FiO2 up to 100% to help her respiratory status recover. Will continue to monitor vitals, fatigue and respiratory status.
--- NOTE | 2016-07-02 19:46 | PCM.PNMED ---
Subjective Date of Service Jul 02, 2016 Subjective overnight: no acute events. BUN elevating. today: Patient continues to feel improvement. RT has monitored peak flows with albuterol nebulizers every two hours which show only minimal improvement. The patient continues to note a cough which is mildly productive. Exam Vital Signs Vital Sign - Last Date Time Temp Pulse Resp B/P Pulse Ox O2 Delivery O2 Flow Rate FiO2 07/02/16 05:13 73 14 95 60 07/02/16 05:13 Nasal Cannula 45 07/02/16 04:49 37.4 114/60 Intake and Output 07/01/16 07/01/16 07/02/16 Cumulative From/Thru 15:00 23:00 07:00 06/23/16 09:47 - 07/02/16 06:27 Intake Total 679 ml 714 ml 63568 ml Output Total 650 ml 450 ml 16466 ml Balance 29 ml 264 ml 1561 ml Intake Oral 495 ml 600 ml 2095 ml IV Total 184 ml 114 ml 52536 ml Tube Feeding 2597 ml Tube Irrigant 776 ml Output Urine Total 650 ml 450 ml 32974 ml Gastric Drainage Total 100 ml # Bowel Movements 0 0 0 Exam Gen: General alert and oriented, cooperative in no acute distress on high flow nasal canula, patient has a rasp in her voice consistent with post intubation, patient has a cough which sounds like the rattle of phlegm HEENT: Pupils are equally round and reactive to light and accommodation. Extraocular muscles are intact. Sclera are pink and nonicteric. Neck: No lymph nodes are felt head, neck, supraclavicular area, no JVD CV: Heart is regular rate and rhythm without murmur, rubs or gallops PULM: Lungs have wheezing throughout with decreased breath sounds significantly improved after albuterol nebulizer. No crackles heard. Abdomen: soft, normoactive bowel sounds, nontender, no organomegaly. : No mercado in place Extremities: no cyanosis edema or clubbing, pulses intact at dorsalis pedis and radial bilaterally Neuro: exam without noticeable deficit. Cranial nerves II through XII tested intact. Skin: no rash or jaundice. Psych: Normal mood and affect Lab and Diagnostics Result Diagram: 07/02/1631407/02/16314 X-Rays, CTs and MRIs CT ANGIO CHEST PULMONARY EMBOLISM IMPRESSION: 1. No evidence of pulmonary embolism. 2. Dependent changes are present within the left base as well as a 5 mm groundglass like opacity within the right base, overall nonspecific. Dictated by: Cindy Medley M.D. on 06/25/2016 at 11:36 X-RAY CHEST ONE VIEW, PORTABLE IMPRESSION: Stable chest. Dictated by: Gavin MILLIGAN Interpreted: Arielle Jordan MD on 06/26/2016 at 9 :06 Transcribed by: CHERRI on 06/26/2016 at 9:07 X-RAY CHEST ONE VIEW, PORTABLE IMPRESSION: Acute disease is not appreciated in the upright portable chest. Dictated by: Julián Markham M.D Additional Diagnostics ABG DateTimeAnalyzed 07:47:00 -_ pH ____7.353 - 7.350 7.450 pCO2 ___42.7__ -mmHg 35.0 45.0 pO2 ___93.9__ -mmHg 69.0 116 HCO3- ___23.1__ -mmol/L 22.0 26.0 Assessment & Plan Ms. Lissette Ash is a 45 year old lad with past medical history significant for 4 admissions over the last 6 years for asthma, with 3-4 prior intubations. Prior to admission she had 5 days with increasing shortness breath and coughing. Her O2 sat is 90-92% on room air, dropping into the 80s with exertion on room air. There has been no fever and the chest x-ray shows no pneumonia. Shortly thereafter patient was requiring increased amounts of oxygen to maintain saturations, and was subsequently intubated. Hospital Day 10 1. Acute hypercapneic and hypoxic respiratory failure, not present on admission. Active. - due to asthma exacerbation and possibly viral vs bacterial pneumonia. Not on oxygen at home. - Patient's daughter Susana reports the patient has been intubated 3-4 other times in the past with a minimum of one week stay at the hospital during these times. - Extubated to nasal cannula, Extubated 06/28, on High Flow O2 45l/m at 80% - IgE - 220 - with CT otherwise normal - unlikely ABPA, - Procalcitonin/sputum culture/viral PCR/MRSA swab Khan-negative. - CT PE as above. negative for PE 06/25. - Azithromycin started 06/25. discontinued 06/29. - PT ordered. - Consult pulmonology appreciate recommendations - DC Solu-Medrol 40 mg every 8H. - Solumedrol 125mg IV Q6hrs - Albuterol Nebulizer for 10mg every two hours - continue peak flow monitoring post albuterol nebulizer 2. Asthma Exacerbation/Acute Bronchospasm, present on admission, Active and improving. - Continue IV Solu-Medrol - Continue nebulized albuterol scheduled every 4 hours and every hour when necessary. - Continue oxygen - Continue pulmonary toilet to try to avoid mucus plugging - Vest and flutter valve per RT. - Begin guaifenesin and consider antibiotic therapy - Treated with azithromycin for anti-inflammatory effect - PT ordered, continue Incentive spirometry and encourage cough. 3. Urinary Tract infection, not present on admission, treated - ceftriaxone started 06/29 for Proteus UTI. Discontinued 07/03 - removed mercado 4. History of Mucous Plugging/Lung Collapse - Early pulmonary toilet attention from RT with potential vest use and flutter valve. - Consult pulmonology appreciate recommendations - Guaifenesin as mucolytic effect prn and scheduled 5. History of Prediabetes - It is not clear if this is a steroid/chemical diabetes effect or DM type II. - A1c 5.9. Acetaminophen for mild pain when necessary. Bowel regimen Senna and MiraLAX scheduled and PRN. Zofran when necessary for nausea and vomiting. DVT prophylaxis: Lovenox. SCDs in place. Disposition: Likely here for another day with discharge on 07/04. Dependent upon asthma exacerbation and respiratory status. Will be discharged to home when medically stable Pain Evaluation: Adequate Pain Control VTE Mechanical Devices: Intermittant Pneumatic CD Resuscitation Status: CPR: Attempt Resuscitation Attending Statement The patient was seen and examined together with Dr. Velazquez on 07/02/2016 and I agree with the history, exam and plan as outlined in the note above. . Rc Velazquez DO Jul 02, 2016 06:44 Bob Roy MD Jul 04, 2016 17:55
[2016-07-02] MEDS: guaiFENesin 20 mg/mL 10 mL Syrup PO PRN (20:49)
[2016-07-03] VITALS (19 sets, daily range): BP systolic 107–128; BP diastolic 60–73; PULSE 75–102; RESP 15–20; O2SAT 87–97
[2016-07-03] MEDS: Albuterol 0.5% (5mg/mL) 20 mL Inhalation Solution NEB SCH ×12 (00:30→22:30)
[2016-07-03] MEDS: Insulin LISPRO 300 Unit/3 mL Inj SUBQ SCH ×4 (02:30→20:30)
[2016-07-03] MEDS: MethylprednisoLONE Sodium Succinate 62.5 mg/mL 2 mL Inj IVPUSH SCH ×4 (02:30→20:42)
--- NOTE | 2016-07-03 03:40 | NUR ---
Respiratory VS as noted. Sats mid 90s on 100% fio2 at 45l. Encouraged to cough and deep breath. States using acapella independently. States coughing up some sputum/ swallowed. No desaturations through the night. Repositioning independently.
[2016-07-03] MEDS: 0.9% Sodium Chloride 1,000 ML IV SCH (04:37)
[2016-07-03 04:50] LABS: Mean Corpuscular Volume 82.8 fL (81-100)
[2016-07-03] MEDS: Polyethylene Glycol (PEG) 17 Gm Powder PO SCH (08:30)
--- NOTE | 2016-07-03 09:09 | DRSVH ---
PROCEDURE: X-RAY CHEST ONE VIEW, PORTABLE ([id number]) INDICATIONS: acute respiratory failure TECHNIQUE: One view of the chest was acquired. COMPARISON: [facility], CR, XR CHEST 1VW (PORTABLE), 07/02/2016, 5:39. FINDINGS: Surgical changes and devices: Right internal jugular vein central venous catheter is present, tip of which is at the cavoatrial junction, as before. Lungs and pleura: No pleural effusions or pneumothorax. Mild left and right basilar airspace opacit y is unchanged. Mediastinum: Mediastinal contours appear normal. Heart size is normal. Bones and chest wall: No suspicious bony lesions. Overlying soft tissues appear unremarkable. IMPRESSION: Bibasilar atelectasis versus aspiration or pneumonia. Correlate clinically. Dictated by: Gavin Grover [facility] Interpreted: Maggy Arcos MD on 07/03/2016 at 9:09 Transcribed by: BETSY on 07/03/2016 at 9:09 Approved by: Maggy Arcos M.D. on 07/03/2016 at 16:31
--- NOTE | 2016-07-03 10:13 | NUR ---
NUTRITION FOLLOW-UP: Assess: 45 YO F with longstanding, severe, poorly controlled asthma, presenting with an acute asthma exacerbation with respiratory failure, hypoxia, and hypercarbia. Patient was successfully extubated 3/. Speech Therapy has advanced her diet to dysphagia mechanical. She has been tolerating PO well at 75-100% of meals. PMHX: Asthma, left lower lobe mucous plugging. DIET: Dysphagia Mechanical. PO 75-100% LABS: Reviewed. Bun 29, Glu 150 MEDICATIONS: Solu-medrol, insulin, Zofran. Pt refused miralax GI: No BM noted x 10 SKIN: No PU per WC, Balaji 17 WEIGHT: 85.8kg, BMI 30.5 kg/m2, Admit wt: 84.09 kg, IBW: 59.1 kg ESTIMATED NEEDS: BMI (needs updated 07/01/16) Calories: 6360-8058 kcal/day (20-22 kcal/kg BW) Protein: 70-90 g/day (1.2-1.5 g/kg IBW) NUTRITION DIAGNOSIS: 1) Inadequate oral intake related to decreased ability to consume sufficient energy as evidenced by NPO status--IMPROVING 2) Chew/swallow difficulty related to respiratory distress/weakness as evidence by need for stimulation diet and pt reporting fear of eating/drinking.--IMPROVING INTERVENTION: 1) Continue to advance diet per ST. PO at this time is adequate MONITOR/EVALUATE: diet advance / tolerance, ST, PO intake, labs, GI/nutrition status. Follow per moderate nutrition risk guidelines.
--- NOTE | 2016-07-03 16:39 | PCM.PNMED ---
Subjective Date of Service Jul 03, 2016 Subjective Pulmonary consult: Attending Dr. Lynch. Consult requested by Dr. Velazquez Ms. Ash is a 45 year old female with severe persistent poorly controlled asthma who was admitted for an asthma exacerbation and acute hypoxic respiratory failure. This is her second admission in the last year due to an asthma exacerbation. During this hospital course patient was intubated secondary to hypoxic respiratory failure, subsequent extubation. Overnight patient reports that her breathing remains the same, during interview patient became quite upset stating that she is not able to get up and move with physical therapy because she becomes short of breath and her oxygen levels desaturate. She also states that she is not able to sit at the edge of the bed secondary to increased oxygen needs. Overall she is feeling tired and does not feel that her health is improving and is getting quite frustrated at her current situation. Exam Vital Signs Vital Sign - Last Date Time Temp Pulse Resp B/P Pulse Ox O2 Delivery O2 Flow Rate FiO2 07/03/16 14:42 36.8 80 18 124/65 87 high flow 07/03/16 13:54 90 07/03/16 10:27 45 Intake and Output 07/02/16 07/02/16 07/03/16 Cumulative From/Thru 15:00 23:00 07:00 06/23/16 09:47 - 07/03/16 06:12 Intake Total 889 ml 317 ml 93616 ml Output Total 500 ml 350 ml 65144 ml Balance 389 ml -33 ml 1917 ml Intake Oral 720 ml 200 ml 3015 ml IV Total 169 ml 117 ml 96632 ml Tube Feeding 2597 ml Tube Irrigant 776 ml Output Urine Total 500 ml 350 ml 75361 ml Gastric Drainage Total 100 ml # Bowel Movements 0 0 Exam General: Patient sitting up in bed with high flow O2 via nasal cannula in place , well-developed. HEENT: Normocephalic, atraumatic. External ears without defect. Pupils equal, round, and reactive to light and accommodation. Neck: Supple with full range of motion. No jugular venous distension. Cardiovascular: Regular rate and rhythm with no murmurs, rubs, or gallops appreciated Pulmonary: Diffuse wheezing throughout lung graves, improved from yesterday and more pronounced on expiration. Poor air movement with overall decreased breath sounds. No crackles. No use of accessory muscles. Abdomen: Soft, nontender, nondistended. Extremities: No edema, or lymphadenopathy appreciated. Skin: Normal temperature, turgor, and texture Neurological: Cranial nerves grossly intact. Psychiatric: Normal mood and affect. Alert and oriented to person, place, and time IVs and Medications Medications Reviewed: Medications were reviewed in detail Lab and Diagnostics Result Diagram: 07/03/16 0435 07/03/16434 X-Rays, CTs and MRIs CT ANGIO CHEST PULMONARY EMBOLISM IMPRESSION: 1. No evidence of pulmonary embolism. 2. Dependent changes are present within the left base as well as a 5 mm groundglass like opacity within the right base, overall nonspecific. Dictated by: Cindy Medley M.D. on 06/25/2016 at 11:36 X-RAY CHEST ONE VIEW, PORTABLE IMPRESSION: Stable chest. Dictated by: Gavin Grover [facility] Interpreted: Arielle Jordan MD on 06/26/2016 at 9 :06 Transcribed by: CHERRI on 06/26/2016 at 9:07 X-RAY CHEST ONE VIEW, PORTABLE IMPRESSION: Acute disease is not appreciated in the upright portable chest. Dictated by: Julián Markham M.D Additional Diagnostics ABG DateTimeAnalyzed 07:47:00 -_ pH ____7.353 - 7.350 7.450 pCO2 ___42.7__ -mmHg 35.0 45.0 pO2 ___93.9__ -mmHg 69.0 116 HCO3- ___23.1__ -mmol/L 22.0 26.0 Assessment & Plan Ms. Lissette Ash is a 45 year old lad with past medical history significant for 4 admissions over the last 6 years for asthma, with 3-4 prior intubations. Prior to admission she had 5 days with increasing shortness breath and coughing. Her O2 sat is 90-92% on room air, dropping into the 80s with exertion on room air. There has been no fever and the chest x-ray shows no pneumonia. Shortly thereafter patient was requiring increased amounts of oxygen to maintain saturations, and was subsequently intubated. Hospital Day 10 # Status asthmaticus. Present on admission. Ongoing. Patient continues to be receiving inhaled bronchodilators every 2 montelukast as well as Solu-Medrol. Overall she appears to be frustrated with her lack of progression in her recovery, becoming emotional and angry during the interview stating that she is doing everything that she can just does not have the ability to continue with physical therapy. Though she is not followed by outpatient pulmonology and we have no records of pulmonary function test the fact that her peak flow has improved so well post albuterol treatment does point to her underlying etiology being asthma. These recurrent exacerbations are most likely secondary to noncompliance with outpatient medications though that remains unclear at this point. As she remains so tired and is starting to become demoralized secondary to her lack of progress we recommend stepping back temporarily from aggressive PT as well as decreasing her nebulizer treatments during the evening from every 2 to every 4 hopefully letting her sleep for longer periods of time. -Currently her pressure is at 45 which we will attempt to increase up to 60 or 70 to help push open her airways and drop the FiO2 which may help her overall picture and increase her oxygenation. -We are also going to decrease her Solu-Medrol to every 8 hours rather than every 6. - During the day continue with albuterol 10 mg every 2 though and ipratropium 0.5 mg every other dose. This will translate to albuterol 10 mg followed by albuterol 10 mg +0.5 mg ipratropium, followed by albuterol 10 mg followed by albuterol 10 mg +0.5 mg ipratropium, while awake. - Continue montelukast 10 mg at bedtime - Continue pulmonary toilet - Continue to encourage incentive spirometry, she is primarily using her Acapella - Continue expectorants VTE Mechanical Devices: Intermittant Pneumatic CD Resuscitation Status: CPR: Attempt Resuscitation Attending Statement The patient was seen and examined together with Dr. España on 07/03/2016 and I agree with the history, exam and plan as outlined in the note above. KELLY ESPAÑA DO Jul 03, 2016 16:38 Henry Lynch MD Jul 10, 2016 11:04
--- NOTE | 2016-07-03 17:50 | NUR ---
Mentation/BM/DC Smith pt frustrated with her health condition not improving, stating wanting to be discharged at this time. Listen and allowed pt to make decision. After talking to pt, pt stating feeling better and agreed to stay. Pt able to be up to BSC, desating to mid-high 80s on High flow, however denied SOB. Pt had a large Brown Soft BM after not having one since [facility]. Luis DC per MD's order. Pt tolerated procedure well. Ongoing care.
--- NOTE | 2016-07-03 19:08 | PCM.PNMED ---
Subjective Date of Service Jul 03, 2016 Subjective overnight: Oxygen requirements increased overnight after exertion with saturation in mid 90s on 100% fio2 at 45l. today: Patient states that she does not feel like her breathing is really improved over the last day. She states that she was short of breath on exertion notably when she is getting up to use the restroom. She states that her cough seems to be less productive. She states that she is continuing to use her Acapella device independently several times an hour. Exam Vital Signs Vital Sign - Last Date Time Temp Pulse Resp B/P Pulse Ox O2 Delivery O2 Flow Rate FiO2 07/03/16 06:12 88 16 94 Nasal Cannula 45 100 07/03/16 05:12 37.0 110/60 Intake and Output 07/02/16 07/02/16 07/03/16 Cumulative From/Thru 15:00 23:00 07:00 06/23/16 09:47 - 07/03/16 06:12 Intake Total 889 ml 317 ml 64334 ml Output Total 500 ml 350 ml 61436 ml Balance 389 ml -33 ml 1917 ml Intake Oral 720 ml 200 ml 3015 ml IV Total 169 ml 117 ml 93365 ml Tube Feeding 2597 ml Tube Irrigant 776 ml Output Urine Total 500 ml 350 ml 22061 ml Gastric Drainage Total 100 ml # Bowel Movements 0 0 Exam Gen: General alert and oriented, cooperative in no acute distress on high flow nasal canula, patient has a rasp in her voice consistent with post intubation, patient has a cough which sounds like the rattle of phlegm HEENT: Pupils are equally round and reactive to light and accommodation. Extraocular muscles are intact. Sclera are pink and nonicteric. Neck: No lymph nodes are felt head, neck, supraclavicular area, no JVD CV: Heart is regular rate and rhythm without murmur, rubs or gallops PULM: breath sounds significantly without any notable coarse breath sounds or wheezing currently after albuterol nebulizer. Abdomen: soft, normoactive bowel sounds, nontender, no organomegaly. : No mercado in place Extremities: no cyanosis edema or clubbing, pulses intact at dorsalis pedis and radial bilaterally Neuro: exam without noticeable deficit. Cranial nerves II through XII tested intact. Skin: no rash or jaundice. Psych: Mildly depressed mood compared to prior exam, patient notably tearful when discussing her current state of health Lab and Diagnostics Result Diagram: 07/03/16 0435 07/03/16 0435 X-Rays, CTs and MRIs CT ANGIO CHEST PULMONARY EMBOLISM IMPRESSION: 1. No evidence of pulmonary embolism. 2. Dependent changes are present within the left base as well as a 5 mm groundglass like opacity within the right base, overall nonspecific. Dictated by: Cindy Medley M.D. on 06/25/2016 at 11:36 X-RAY CHEST ONE VIEW, PORTABLE IMPRESSION: Stable chest. Dictated by: Gavin MILLIGAN Interpreted: Arielle Jordan MD on 06/26/2016 at 9 :06 Transcribed by: CHERRI on 06/26/2016 at 9:07 X-RAY CHEST ONE VIEW, PORTABLE IMPRESSION: Acute disease is not appreciated in the upright portable chest. Dictated by: Julián Markham M.D Additional Diagnostics ABG DateTimeAnalyzed 07:47:00 -_ pH ____7.353 - 7.350 7.450 pCO2 ___42.7__ -mmHg 35.0 45.0 pO2 ___93.9__ -mmHg 69.0 116 HCO3- ___23.1__ -mmol/L 22.0 26.0 Assessment & Plan Ms. Lissette Ash is a 45 year old lad with past medical history significant for 4 admissions over the last 6 years for asthma, with 3-4 prior intubations. Prior to admission she had 5 days with increasing shortness breath and coughing. Her O2 sat is 90-92% on room air, dropping into the 80s with exertion on room air. There has been no fever and the chest x-ray shows no pneumonia. Shortly thereafter patient was requiring increased amounts of oxygen to maintain saturations, and was subsequently intubated. Hospital Day 11 1. Acute hypercapneic and hypoxic respiratory failure, not present on admission. Active. - due to asthma exacerbation and possibly viral vs bacterial pneumonia. Not on oxygen at home. - Patient's daughter Susana reports the patient has been intubated 3-4 other times in the past with a minimum of one week stay at the hospital during these times. - Extubated to nasal cannula, Extubated 06/28, on High Flow O2 60l/m at 90% - IgE - 220 - with CT otherwise normal - unlikely ABPA, - Procalcitonin/sputum culture/viral PCR/MRSA swab Khan-negative. - CT PE as above. negative for PE 06/25. - Azithromycin started 06/25. discontinued 06/29. - PT ordered. - Consult pulmonology appreciate recommendations - DC Solu-Medrol 40 mg every 8H. - Solumedrol 125mg IV Q6hrs - Albuterol Nebulizer for 10mg every two hours - continue peak flow monitoring post albuterol nebulizer 2. Asthma Exacerbation/Acute Bronchospasm, present on admission, Active and improving. - Continue IV Solu-Medrol - Continue nebulized albuterol scheduled every 4 hours and every hour when necessary. - Continue oxygen - Continue pulmonary toilet to try to avoid mucus plugging - Vest and flutter valve per RT. - Begin guaifenesin and consider antibiotic therapy - Treated with azithromycin for anti-inflammatory effect - PT ordered, continue Incentive spirometry and encourage cough. 3. Urinary Tract infection, not present on admission, treated - ceftriaxone started 06/29 for Proteus UTI. Discontinued 07/03 - removed mercado 4. History of Mucous Plugging/Lung Collapse - Early pulmonary toilet attention from RT with potential vest use and flutter valve. - Consult pulmonology appreciate recommendations - Guaifenesin as mucolytic effect prn however patient reports a history of rash this medication 5. History of Prediabetes - It is not clear if this is a steroid/chemical diabetes effect or DM type II. - A1c 5.9. Acetaminophen for mild pain when necessary. Bowel regimen Senna and MiraLAX scheduled and PRN. Zofran when necessary for nausea and vomiting. DVT prophylaxis: Lovenox. SCDs in place. Disposition: Improvement remains unfortunately guarded with discharge on hopefully within the next several days. Dependent upon asthma exacerbation and respiratory status. Will be discharged to home when medically stable Pain Evaluation: Adequate Pain Control VTE Mechanical Devices: Intermittant Pneumatic CD Resuscitation Status: CPR: Attempt Resuscitation Attending Statement The patient was seen and examined together with Dr. Velazquez on 07/03/2016 and I agree with the history, exam and plan as outlined in the note above. . Rc Velazquez DO Jul 03, 2016 07:41 Bob Roy MD Jul 06, 2016 14:17
--- NOTE | 2016-07-03 19:53 | NUR ---
Discharge of patient Recommended several times that patient should go to SNF. However pt refusing to go to care home and stating will discharge home instead. Awaited till 190 for pt's DPOA to pick him up however DPOA unable to make it at that time. Pt stating will call a taxi. Reviewed discharge instructions with patient. Patient verbalized understanding. Patient awaiting taxi cab for ride home. IJ and Telemetry previously discontinued. Discharge paper work done. Report given to oncharjeet RN for discharge instructions. Oncharjeet RN called "[facility]" for transport. Pt waiting for transport at this time. Addendum: 07/07/16 at 1420 by ROGELIO CORTES RN Wrong Patient
[2016-07-04] VITALS (19 sets, daily range): BP systolic 110–141; BP diastolic 59–88; PULSE 83–107; RESP 14–22; O2SAT 87–95
[2016-07-04] MEDS: Albuterol 0.5% (5mg/mL) 20 mL Inhalation Solution NEB SCH ×12 (00:17→23:08)
[2016-07-04] MEDS: guaiFENesin 20 mg/mL 10 mL Syrup PO PRN ×3 (02:18→14:28)
[2016-07-04] MEDS: MethylprednisoLONE Sodium Succinate 62.5 mg/mL 2 mL Inj IVPUSH SCH ×4 (02:19→20:30)
[2016-07-04] MEDS: Insulin LISPRO 300 Unit/3 mL Inj SUBQ SCH ×4 (02:26→20:30)
--- NOTE | 2016-07-04 02:28 | NUR ---
Activity Pt up OOB to BSC to void. Voided 300cc pale yellow urin with a few visible blood clots. Pt tolerated activity. Fio2 turned up briefly from 75%to80% due to desat to 80%
[2016-07-04] MEDS: 0.9% Sodium Chloride 1,000 ML IV SCH (05:33)
[2016-07-04 06:12] LABS: Hepatitis A Antibody IgM Negative (Negative); Hepatitis B Core Antibody IgM Negative (Negative)
[2016-07-04 07:47] LABS: Mean Corpuscular Hemoglobin 27.9 pg (27.0-35.0); Mean Corpuscular Volume 83.9 fL (81-100)
--- NOTE | 2016-07-04 10:30 | PROG NOTE ---
[address] [address] PROGRESS NOTE PATIENT: GAL ESCUDERO : 1970 MR#: [id number] ADMIT: 06/23/2016 JOB ID: [id number] DATE: 07/04/2016 PULMONARY FOLLOWUP NOTE: PROBLEM: Status asthmaticus. SUBJECTIVE: Breathing more comfortably. Some cough. Not really bringing up much phlegm. However, her overall status is she is feeling quite a bit better today compared to yesterday. OBJECTIVE: Temperature 36.9, pulse mid 90s. Respiratory rate 14 to 20, blood pressure 110/59, O2 sat on FiO2 of 70% and high flow of 60 L a minute is 92%. General appearance: Much more comfortable appearing. Smiling. Speaking easily. High-flow nasal system running. Chest: Fairly good breath sounds bilaterally. A few scattered crackles mostly in the lower lung graves. Almost normal-sounding air entry bilaterally. No use of accessory muscles. Heart: Regular rhythm. Heart tones normal. Abdomen: Soft. Bowel tones present. Extremities: No pretibial edema. LABORATORY STUDIES: White cell count 19,000 and slowly increasing. Hemoglobin 14.6 and stable. Platelet count 179,000 and relatively stable, though some drop over the past 72 hours. Sodium 140, potassium 3.7, chloride 103, CO2 is 22, BUN 24, creatinine 0.5. Calcium is normal at 8.7. The patient was given a treatment with a SmartVest. Subsequent to that, she had some coughing. Sounded a bit wet, though she only brought up a small amount of phlegm. However, O2 saturations dipped to the low 80s during the procedure. After the procedure was terminated, high flow was increased. O2 sats radha to the high 80s. The patient states her O2 sat is always in the high 80s, never in the 90s. ASSESSMENT: Status asthmaticus. Airflow better. Suspect that the transient worsening in her O2 sat was due to worsening ventilation-perfusion mismatch during the intervention. She seems to be recovering to some extent. Not sure that the SmartVest is doing us much good and if things do not improve, do not see the reason for continuing on with the SmartVest. Will continue the treatment with the Acapella. The patient has a much better outlook on life today than yesterday. Seems a bit happier. PLAN: 1. Consider discontinuing SmartVest unless it can be shown to objectively improve the situation. I do not know that it is doing much good. 2. Continue Acapella. 3. Continue aggressive nebulizer and steroid treatment, though we did decrease the Solu-Medrol somewhat yesterday to 125 mg slow IV push q.8 h.
[2016-07-04] MEDS: Ipratropium 0.02% 0.5 mg/2.5 mL Inhalation Solution NEB SCH ×4 (12:48→23:07)
--- NOTE | 2016-07-04 16:41 | PCM.PNMED ---
Subjective Date of Service Jul 04, 2016 Subjective overnight: Patient voided 300cc pale yellow urine with a few visible blood clots. Patient tolerated activity however required Fio2 turned up briefly from 75% to 80% due to desaturation to O2 sat of 80%. Patient considered leaving AMA , however reconsidered. today: Patient states that she felt very depressed overnight and considered leaving AMA, because she does not feel like she is improving. She states that she feels better today. She understands we are trying everything to get her better as fast as possible. She states that she continues to cough of junk. She mentioned that her grandmother had very thick lung secretions and wondered if her grandmother had cystic fibrosis. Her grandmother lived to be 90. Exam Vital Signs Vital Sign - Last Date Time Temp Pulse Resp B/P Pulse Ox O2 Delivery O2 Flow Rate FiO2 07/04/16 06:18 83 14 92 75 07/04/16 04:14 Nasal Cannula 60 07/04/16 03:27 37.0 141/70 Intake and Output 07/03/16 07/03/16 07/04/16 Cumulative From/Thru 15:00 23:00 07:00 06/23/16 09:47 - 07/04/16 04:38 Intake Total 400 ml 550 ml 41151 ml Output Total 400 ml 300 ml 31978 ml Balance 0 ml 250 ml 2167 ml Intake Oral 400 ml 375 ml 3790 ml IV Total 175 ml 64620 ml Tube Feeding 2597 ml Tube Irrigant 776 ml Output Urine Total 400 ml 300 ml 07362 ml Gastric Drainage Total 100 ml # Bowel Movements 0 Exam Gen: General alert and oriented, mildly diaphoretic, cooperative in no acute distress on high flow nasal canula, patient has an improving rasp in her voice consistent with post intubation, patient has a cough which sounds like the rattle of phlegm HEENT: Pupils are equally round and reactive to light and accommodation. Extraocular muscles are intact. Sclera are pink and nonicteric. Neck: No lymph nodes are felt head, neck, supraclavicular area, no JVD CV: Heart is regular rate and rhythm without murmur, rubs or gallops PULM: breath sounds with mild coarse breath sounds and sporadic single episode wheeze in upper left lung fiend Abdomen: soft, normoactive bowel sounds, nontender, no organomegaly. : No mercado in place Extremities: no cyanosis edema or clubbing, pulses intact at dorsalis pedis and radial bilaterally Neuro: exam without noticeable deficit. Cranial nerves II through XII tested intact. Skin: no rash or jaundice. Psych: Mildly depressed mood compared to prior exam, patient again notably tearful when discussing her current state of health Lab and Diagnostics Result Diagram: 07/04/16 0725 07/03/16 0435 X-Rays, CTs and MRIs CT ANGIO CHEST PULMONARY EMBOLISM IMPRESSION: 1. No evidence of pulmonary embolism. 2. Dependent changes are present within the left base as well as a 5 mm groundglass like opacity within the right base, overall nonspecific. Dictated by: Cindy Medley M.D. on 06/25/2016 at 11:36 X-RAY CHEST ONE VIEW, PORTABLE IMPRESSION: Stable chest. Dictated by: Gavin Grover [facility] Interpreted: Arielle Jordan MD on 06/26/2016 at 9 :06 Transcribed by: CHERRI on 06/26/2016 at 9:07 X-RAY CHEST ONE VIEW, PORTABLE IMPRESSION: Acute disease is not appreciated in the upright portable chest. Dictated by: Julián Markham M.D Additional Diagnostics ABG DateTimeAnalyzed 01:09:00 -_ pH ____7.289 - 7.350 7.450 pCO2 ___47.3__ -mmHg 35.0 45.0 pO2 334 -mmHg 69.0 116 HCO3- ___22.0__ -mmol/L 22.0 26.0 ABG DateTimeAnalyzed 07:47:00 -_ pH ____7.353 - 7.350 7.450 pCO2 ___42.7__ -mmHg 35.0 45.0 pO2 ___93.9__ -mmHg 69.0 116 HCO3- ___23.1__ -mmol/L 22.0 26.0 Assessment & Plan Ms. Lissette Ash is a 45 year old lad with past medical history significant for 4 admissions over the last 6 years for asthma, with 3-4 prior intubations. Prior to admission she had 5 days with increasing shortness breath and coughing. Her O2 sat is 90-92% on room air, dropping into the 80s with exertion on room air. There has been no fever and the chest x-ray shows no pneumonia. Shortly thereafter patient was requiring increased amounts of oxygen to maintain saturations, and was subsequently intubated. Hospital Day 12 1. Acute hypercapneic and hypoxic respiratory failure, not present on admission. Active. - due to asthma exacerbation and possibly viral vs bacterial pneumonia. Not on oxygen at home. - Patient's daughter Susana reports the patient has been intubated 3-4 other times in the past with a minimum of one week stay at the hospital during these times. - Extubated to nasal cannula, Extubated 06/28, on High Flow O2 60l/m at 90% - IgE - 220 - with CT otherwise normal - unlikely ABPA, - Procalcitonin/sputum culture/viral PCR/MRSA swab Khan-negative. - CT PE as above. negative for PE 06/25. - Azithromycin started 06/25. discontinued 06/29. - PT ordered. - Consult pulmonology appreciate recommendations - DC Solu-Medrol 40 mg every 8H. - Solumedrol 125mg IV Q6hrs - Albuterol Nebulizer for 10mg every two hours - Ipratropium nebulizer 0.5mg Q4hrs - Guaifenesin 200mg PO every 6 hours - continue peak flow monitoring post albuterol nebulizer 2. Asthma Exacerbation/Acute Bronchospasm, present on admission, Active and improving. - Continue IV Solu-Medrol - Continue nebulized albuterol scheduled every 4 hours and every hour when necessary. - Continue oxygen - Continue pulmonary toilet to try to avoid mucus plugging - Vest and flutter valve per RT. - guaifenesin - Initially treated with azithromycin for anti-inflammatory effect - PT ordered, continue Incentive spirometry and encourage cough. 3. Urinary Tract infection, not present on admission, treated - ceftriaxone started 06/29 for Proteus UTI. Discontinued 07/03 - removed mercado 4. History of Mucous Plugging/Lung Collapse - Early pulmonary toilet attention from RT with potential vest use and flutter valve. - Consult pulmonology appreciate recommendations - Guaifenesin as mucolytic effect prn however patient reports a history of rash this medication, will monitor 5. History of Prediabetes - It is not clear if this is a steroid/chemical diabetes effect or DM type II. - A1c 5.9. Acetaminophen for mild pain when necessary. Bowel regimen Senna and MiraLAX scheduled and PRN. Zofran when necessary for nausea and vomiting. DVT prophylaxis: Lovenox. SCDs in place. Disposition: Improvement remains unfortunately guarded with discharge on hopefully within the next several days. Dependent upon asthma exacerbation and respiratory status. Will be discharged to home when medically stable VTE Mechanical Devices: Intermittant Pneumatic CD Resuscitation Status: CPR: Attempt Resuscitation Attending Statement The patient was seen and examined together with Dr. Velazquez on 07/04/2016 and I agree with the history, exam and plan as outlined in the note above. . Rc Velazquez DO Jul 04, 2016 08:08 Bob Roy MD Jul 06, 2016 14:18
--- NOTE | 2016-07-04 17:19 | NUR ---
SOB/HR Patient with increased sob and HR with activity. OOB to BSC to void. Noted HR up to the 130-140s with activity. At rest, HR, 80-90s. Sats down to mid 80s with activity, but recovers to low 90s with rest. Otherwise, w/o complaints.
[2016-07-05] VITALS (17 sets, daily range): BP systolic 121–145; BP diastolic 64–86; PULSE 75–113; RESP 14–22; O2SAT 60–99
[2016-07-05] MEDS: Albuterol 0.5% (5mg/mL) 20 mL Inhalation Solution NEB SCH ×5 (01:36→12:00)
[2016-07-05] MEDS: Insulin LISPRO 300 Unit/3 mL Inj SUBQ SCH ×4 (02:30→20:27)
[2016-07-05] MEDS: MethylprednisoLONE Sodium Succinate 62.5 mg/mL 2 mL Inj IVPUSH SCH ×2 (03:13→08:30)
[2016-07-05] MEDS: 0.9% Sodium Chloride 1,000 ML IV SCH (04:53)
[2016-07-05 05:07] LABS: BASOPHILS % (AUTO) 0.1 % (0-3); EOSINOPHILS % (AUTO) 0.1 % (0-5); Mean Corpuscular Volume 83.1 fL (81-100); NEUTROPHILS % (AUTO) 89.4 % (40-74); Platelet Count 161 bil/L (150-400)
[2016-07-05] MEDS: Ipratropium 0.02% 0.5 mg/2.5 mL Inhalation Solution NEB SCH ×4 (05:40→23:31)
--- NOTE | 2016-07-05 06:32 | NUR ---
oxygen needs pt still on high flow RT has it turned down to 60% and 60L pts SpO2 low to mid 90s,
[2016-07-05 06:45] LABS: ERYTHROCYTE SEDIMENTATION RATE 2 mm/hr (0-32)
--- NOTE | 2016-07-05 11:14 | NUR ---
NUTRITION FOLLOW-UP: Assess: 45 YO F with longstanding, severe, poorly controlled asthma, presenting with an acute asthma exacerbation with respiratory failure, hypoxia, and hypercarbia. Patient was successfully extubated 3/. Speech Therapy has advanced her diet to mechanical soft, thin liquids.. She has been tolerating PO well at 75-100% trays. Pulmonology considering discontinuing SmartVest; will continue Acapella. Per Case Management rounds, the patient has no stamina related to her pulmonology status; not appropriate for PT at this time. PMHX: Asthma, left lower lobe mucous plugging. DIET: Mechanical soft, thin liquids. PO 75-100% trays. LABS: K+ 3.3, Cr 0.51, Glu 146, A1c 5.9, ALT 111, Alb 3.7. MEDICATIONS: Solu-medrol, insulin, GI: No BM noted x 12 D. SKIN: No PU per WC, Balaji 17. WEIGHT: 87.3 kg, BMI 31.0 kg/m2, Admit wt: 84.09 kg, IBW: 59.1 kg ESTIMATED NEEDS: BMI (needs updated 07/01/16) Calories: 5259-8873 kcal/day (20-22 kcal/kg BW) Protein: 70-90 g/day (1.2-1.5 g/kg IBW) NUTRITION DIAGNOSIS: 1) Inadequate oral intake related to decreased ability to consume sufficient energy as evidenced by NPO status - IMPROVED. 2) Chew/swallow difficulty related to respiratory distress/weakness as evidence by need for stimulation diet and pt reporting fear of eating/drinking - RESOLVED. INTERVENTION: 1) Continue to advance diet per ST. PO at this time is adequate. MONITOR/EVALUATE: Diet advance / tolerance, ST, PO intake, labs, GI/nutrition status. Follow per moderate nutrition risk guidelines.
[2016-07-05] MEDS ORDERED: Albuterol 0.5% (5mg/mL) 20 mL Inhalation Solution NEB SCH (11:30)
[2016-07-05] MEDS: Potassium Chloride 20 mEq SR Tablet PO SCH ×2 (12:01→18:46)
--- NOTE | 2016-07-05 12:39 | PROG NOTE ---
[address] [address] PROGRESS NOTE PATIENT: GAL ESCUDERO : 1970 MR#: [id number] ADMIT: 06/23/2016 JOB ID: [id number] DATE: 07/05/2016 PULMONARY FOLLOWUP NOTE: PROBLEM: Status asthmaticus. SUBJECTIVE: Breathing a bit more comfortably. States she has a cough productive of variably clear or yellow phlegm. Not sure whether the vest is helping but is using both the SmartVest, as well as the Acapella. Does not notice the nebulizer treatments at night. Does not think she needs the nebulizer treatments q.2 h. any longer. Appetite improving. Overall feeling better. OBJECTIVE: Temperature 36.7, pulse 83 to 96, respiratory rate mid teens. Blood pressure 130/76, O2 sat on FiO2 of 0.6 with high flow at 60 L a minute shows an O2 sat of 94%. General appearance: Comfortable appearing, using her iPhone. Chest is good breath sounds. There are some low-pitched crackles at both bases and mid lung graves, along with inspiratory low-pitched wheeze in those same areas. Upper lung graves are relatively clear. No use of accessory muscles. Heart: Regular rhythm. Heart tones normal. Abdomen is soft. Bowel tones present. Extremities: No pretibial edema. Laboratory data shows a white count of 19,400, which is stable, 89% polys, 2.8 lymphs, 3 monocytes. Hemoglobin 14.1 and relatively stable. Platelet count 161,000, slowly decreasing. Sodium 138, potassium 3.3, chloride 100, CO2 is 23, BUN 21, creatinine 0.5 and stable, glucose 146 fasting. Calcium 8.5. Total bilirubin 0.7, AST normal at 36, ALT moderately elevated at 111 (upper limits of normal being 32 units/L) and slowly increasing, alkaline phosphatase normal at 55. Total protein 5.8 and stable. Albumin 3.7 and stable. Procalcitonin 0.06. Peak flow unavailable. The patient thinks that it was in the mid 300s. ASSESSMENT: Status asthmaticus. Seems to have better airflow. Oxygenation is improving as her supplemental O2 requirements are decreasing. I think we can continue to decrease the FiO2, maybe start working on flow rate soon. Can back off the nebulized bronchodilators to maybe every 3 hours, decrease the steroids and start inhaled steroids to complement the remainder of her medications. PLAN: 1. Decrease albuterol to 10 mg q.3 h. 2. Increase nebulized ipratropium to q.3 h. 3. Budesonide 1 mg via nebulizer q.12 h. 4. Potassium supplementation.
[2016-07-05] MEDS: Albuterol 2.5 mg/3 mL Inhalation Solution NEB SCH ×3 (17:13→23:31)
--- NOTE | 2016-07-05 18:59 | NUR ---
Shift: Pt remains on high flow at 60% and 60L. Tele SR 70s-90s, VSS, no c/o pain. Pt able to move in bed some, speaks in full sentences, unable to sit at EOB r/t severe dyspnea with activity. CPT per RT, pt reports "It feels better after that, like it's looser." Care ongoing.
[2016-07-05] MEDS: Budesonide 0.5 mg/2 mL Inhalation Solution NEB SCH (20:00)
--- NOTE | 2016-07-05 20:02 | PCM.PNMED ---
Subjective Date of Service Jul 05, 2016 Subjective overnight: Patient remains on high flow nasal cannula however oxygen concentration has been turned down to 60% with patient on 60 L/m with oxygen saturation in the mid 90s overnight. Today: The patient is much more positive today. She believes that she is improving and she is looking forward to getting out of the hospital within the next several days. She does not have any current complaints. She states that she still desaturates when she moves very much at all. She states that the percussion vest that pulmonology as been using his helped bring up some sputum. Exam Vital Signs Vital Sign - Last Date Time Temp Pulse Resp B/P Pulse Ox O2 Delivery O2 Flow Rate FiO2 07/05/16 12:12 100 20 95 60 07/05/16 08:30 Supplement Oxygen 07/05/16 08:00 36.7 130/76 07/05/16 03:38 60 Intake and Output 07/04/16 07/04/16 07/05/16 Cumulative From/Thru 15:00 23:00 07:00 06/23/16 09:47 - 07/05/16 06:10 Intake Total 1226 ml 729 ml 29203 ml Output Total 800 ml 700 ml 93653 ml Balance 426 ml 29 ml 2622 ml Intake Oral 1100 ml 600 ml 5490 ml IV Total 126 ml 129 ml 42912 ml Tube Feeding 2597 ml Tube Irrigant 776 ml Output Urine Total 800 ml 700 ml 74762 ml Gastric Drainage Total 100 ml # Bowel Movements 0 Exam Gen: General alert and oriented, cooperative in no acute distress on high flow nasal canula, patient has an improving rasp in her voice consistent with post intubation, patient has a cough which sounds like the rattle of phlegm but improved from previous days HEENT: Pupils are equally round and reactive to light and accommodation. Extraocular muscles are intact. Sclera are pink and nonicteric. Neck: No lymph nodes are felt head, neck, supraclavicular area, no JVD CV: Heart is regular rate and rhythm without murmur, rubs or gallops PULM: breath sounds with mild coarse breath sounds in the lower left lung field and without any wheezing today Abdomen: soft, normoactive bowel sounds, nontender, no organomegaly. : No mercado in place Extremities: no cyanosis edema or clubbing, pulses intact at dorsalis pedis and radial bilaterally Neuro: exam without noticeable deficit. Cranial nerves II through XII tested intact. Skin: no rash or jaundice, no longer diaphoretic Psych: Improved elevated mood compared to prior days with normal affect Lab and Diagnostics Result Diagram: 07/05/1641907/05/16419 X-Rays, CTs and MRIs CT ANGIO CHEST PULMONARY EMBOLISM IMPRESSION: 1. No evidence of pulmonary embolism. 2. Dependent changes are present within the left base as well as a 5 mm groundglass like opacity within the right base, overall nonspecific. Dictated by: Cindy Medley M.D. on 06/25/2016 at 11:36 X-RAY CHEST ONE VIEW, PORTABLE IMPRESSION: Stable chest. Dictated by: Gavin Grover RR Interpreted: Arielle Jordan MD on 06/26/2016 at 9 :06 Transcribed by: CHERRI on 06/26/2016 at 9:07 X-RAY CHEST ONE VIEW, PORTABLE IMPRESSION: Acute disease is not appreciated in the upright portable chest. Dictated by: Julián Markham M.D Additional Diagnostics [facility] DateTimeAnalyzed 01:09:00 -_ pH ____7.289 - 7.350 7.450 pCO2 ___47.3__ -mmHg 35.0 45.0 pO2 334 -mmHg 69.0 116 HCO3- ___22.0__ -mmol/L 22.0 26.0 ABG DateTimeAnalyzed 07:47:00 -_ pH ____7.353 - 7.350 7.450 pCO2 ___42.7__ -mmHg 35.0 45.0 pO2 ___93.9__ -mmHg 69.0 116 HCO3- ___23.1__ -mmol/L 22.0 26.0 Assessment & Plan Ms. Lissette Ash is a 45 year old lad with past medical history significant for 4 admissions over the last 6 years for asthma, with 3-4 prior intubations. Prior to admission she had 5 days with increasing shortness breath and coughing. Her O2 sat is 90-92% on room air, dropping into the 80s with exertion on room air. There has been no fever and the chest x-ray shows no pneumonia. Shortly thereafter patient was requiring increased amounts of oxygen to maintain saturations, and was subsequently intubated. Hospital Day 13 1. Acute hypercapneic and hypoxic respiratory failure, not present on admission. Active. - due to asthma exacerbation and possibly viral vs bacterial pneumonia. Not on oxygen at home. - Patient's daughter Susana reports the patient has been intubated 3-4 other times in the past with a minimum of one week stay at the hospital during these times. - Extubated to nasal cannula, Extubated 06/28, on High Flow O2 60l/m at 60% - IgE - 220 - with CT otherwise normal - unlikely ABPA, - Procalcitonin/sputum culture/viral PCR/MRSA swab Khan-negative. - CT PE as above. negative for PE 06/25. - Azithromycin started 06/25. discontinued 06/29. - PT ordered. - Consult pulmonology appreciate recommendations - DC Solu-Medrol 40 mg every 8H. - Solumedrol 125mg IV Q6hrs converted to twice a day on 07/05/2016 - Albuterol Nebulizer for 10mg every two hours - Ipratropium nebulizer 0.5mg Q4hrs - Guaifenesin 200mg PO every 6 hours - Budesonide nebulizer 1 mg twice a day - continue peak flow monitoring post albuterol nebulizer 2. Asthma Exacerbation/Acute Bronchospasm, present on admission, Active and improving. - Continue IV Solu-Medrol - Continue nebulized albuterol scheduled every 4 hours and every hour when necessary. - Continue oxygen - Continue pulmonary toilet to try to avoid mucus plugging - Vest and flutter valve per RT. - guaifenesin - Initially treated with azithromycin for anti-inflammatory effect - PT ordered, continue Incentive spirometry and encourage cough. 3. Hypokalemia, not present on admission, treated stable - Oral Potassium replacement 4. History of Mucous Plugging/Lung Collapse - Early pulmonary toilet attention from RT with potential vest use and flutter valve. - Consult pulmonology appreciate recommendations - Guaifenesin as mucolytic effect 200 mg by mouth every 6 hours - RT using pneumatic percussive vest 5. History of Prediabetes - It is not clear if this is a steroid/chemical diabetes effect or DM type II. - A1c 5.9. - Correction scale lispro 6. Urinary Tract infection, not present on admission, treated - ceftriaxone started 06/29 for Proteus UTI. Discontinued 07/03 - removed mercado Acetaminophen for mild pain when necessary. Bowel regimen Senna and MiraLAX scheduled and PRN. Zofran when necessary for nausea and vomiting. DVT prophylaxis: Lovenox. SCDs in place. Disposition: Improvement remains unfortunately guarded with discharge on hopefully within the next several days. Dependent upon asthma exacerbation and respiratory status. Will be discharged to home when medically stable Pain Evaluation: Adequate Pain Control GI Prophylaxis: Not indicated VTE Prophylaxis: Sub-Q Enoxaparin VTE Mechanical Devices: Intermittant Pneumatic CD Resuscitation Status: CPR: Attempt Resuscitation Attending Statement The patient was seen and examined together with Dr. Velazquez on 07/05/2016 and I agree with the history, exam and plan as outlined in the note above. . Rc Velazquez DO Jul 05, 2016 12:21 Bob Roy MD Jul 06, 2016 14:19
[2016-07-05] MEDS ORDERED: MethylprednisoLONE Sodium Succinate 62.5 mg/mL 2 mL Inj IVPUSH SCH (20:30)
[2016-07-06] VITALS (20 sets, daily range): BP systolic 107–130; BP diastolic 56–82; PULSE 76–105; RESP 14–21; O2SAT 95–99
[2016-07-06] MEDS: Insulin LISPRO 300 Unit/3 mL Inj SUBQ SCH ×4 (02:30→20:10)
[2016-07-06] MEDS: Ipratropium 0.02% 0.5 mg/2.5 mL Inhalation Solution NEB SCH ×6 (02:31→20:17)
[2016-07-06] MEDS: Albuterol 2.5 mg/3 mL Inhalation Solution NEB SCH ×5 (02:31→17:11)
[2016-07-06 03:18] LABS: BASOPHILS % (AUTO) 0 % (0-3); EOSINOPHILS % (AUTO) 0 % (0-5); MONOCYTES % (AUTO) 3.2 % (4-12); Mean Corpuscular Hemoglobin 27.7 pg (27.0-35.0); Mean Corpuscular Volume 84.2 fL (81-100); NEUTROPHILS % (AUTO) 90.2 % (40-74); Platelet Count 130 bil/L (150-400)
[2016-07-06 03:40] LABS: Magnesium 2.3 mg/dL (1.6-2.6); Phosphorus 3.1 mg/dL (2.5-4.9)
[2016-07-06] MEDS: 0.9% Sodium Chloride 1,000 ML IV SCH (05:14)
--- NOTE | 2016-07-06 05:34 | NUR ---
Oxygenation. Patient has required less supplemental oxygen over my shift. Patient reports that she is not having to work as hard to catch her breath. Patient was able to use the bed side commode with a once person stand by assist. Patient maintained good saturations during that time. Patient was transitioned off of high flow by RT and then titrated down to 5LPM via an oxymask. Patient feeling well.
--- NOTE | 2016-07-06 07:10 | NUR ---
Social Work: Continued Discharge Planning D: Pt is on day 13 of stay. Pt discussed in am rounds on 07/05. Pt still requiring high flow oxygen and unable to ambulate or maintain upright seated position due to respiratory status. Pt has been working with PT during hospitalization with recommendation for SNF. At this time, PT will postpone further work with the pt until her respiratory status is more stable/improved. Pt insurance is still pending. Per [employer] notes, pt is eligible for [employer] ([employer]) however this does not have a SNF benefit attached. [facility] [place] [facility] [place] insurance. is aware that if pt will most likely remain at [facility] until she is safe to discharge home. A: Pt who lives in [place] with spouse. and family P: Anticipate pt to remain at [facility] until she is safe to discharge from both a respiratory and ambulatory standpoint. [facility] to continue to follow closely. WILVER Denise
--- NOTE | 2016-07-06 08:57 | NUR ---
weaned to Oxy 5L/improved activity tolerance Overnight improvement; able to transition from High Flow to Oxymask @ 5L per R.T. Able to tolerate up to BSC with less desaturation, less exertional dyspnea. Continue to monitor closely; increase activity cautiously as tolerated.
[2016-07-06] MEDS: Budesonide 0.5 mg/2 mL Inhalation Solution NEB SCH (09:56)
--- NOTE | 2016-07-06 10:07 | PCM.PNMED ---
Subjective Date of Service Jul 06, 2016 Subjective Pulmonology consult progress note: Attending Dr. Henry Lynch, requesting provider Dr. Eddy Velazquez Patient is an markedly good spirits. She is sitting up in bed breathing comfortably in no distress with nasal cannula in place at 6 L/m saturating at 98 %. She states that the SmartVest treatments and Acapella and helped her significantly. She is coughing up yellow phlegm and breathing much more easily. Her appetite is improving, she is able to get up and transfer herself to the bedside chair and commode without significant desaturations in her oxygen levels. She is able to sleep comfortably in between treatments. She denies any shortness of breath, chest pain or any other complaints at this time. Overall she feels ready to return to home. Exam Vital Signs Vital Sign - Last Date Time Temp Pulse Resp B/P Pulse Ox O2 Delivery O2 Flow Rate FiO2 07/06/16 09:29 84 07/06/16 06:28 20 99 OxyMask 5.00 07/06/16 04:02 36.9 123/67 60 Intake and Output 07/05/16 07/05/16 07/06/16 Cumulative From/Thru 15:00 23:00 07:00 06/23/16 09:47 - 07/06/16 05:25 Intake Total 1046 ml 303 ml 33362 ml Output Total 2 ml 97244 ml Balance 1046 ml 301 ml 3969 ml Intake Oral 920 ml 200 ml 6610 ml IV Total 126 ml 103 ml 68990 ml Tube Feeding 2597 ml Tube Irrigant 776 ml Output Urine Total 2 ml 27234 ml Gastric Drainage Total 100 ml # Voids 1 1 # Bowel Movements 0 0 Exam General: Awake and alert sitting up in bed in no apparent distress, appropriately interactive nasal cannula in place. HEENT: Normocephalic, atraumatic. External ears without defect. Pupils equal, round, and reactive to light and accommodation. Neck: Supple with full range of motion. No jugular venous distension. Cardiovascular: Regular rate and rhythm with no murmurs, rubs, or gallops appreciated Pulmonary: Patient still has some mild crackles at both lung bases heard posteriorly with some inspiratory wheezing. Upper lung graves show marked improvement from previous exams and are clear to auscultation. Abdomen: Soft, nontender, nondistended. Extremities: No tibial edema. Neurological: Cranial nerves grossly intact. Psychiatric: Normal mood and affect. Alert and oriented to person, place, and time. IVs and Medications Medications Reviewed: Medications were reviewed in detail Lab and Diagnostics Result Diagram: 07/06/16 0300 07/06/16 0300 X-Rays, CTs and MRIs CT ANGIO CHEST PULMONARY EMBOLISM IMPRESSION: 1. No evidence of pulmonary embolism. 2. Dependent changes are present within the left base as well as a 5 mm groundglass like opacity within the right base, overall nonspecific. Dictated by: Cindy Medley M.D. on 06/25/2016 at 11:36 X-RAY CHEST ONE VIEW, PORTABLE IMPRESSION: Stable chest. Dictated by: Gavin Grover RRA Interpreted: Arielle Jordan MD on 06/26/2016 at 9 :06 Transcribed by: CHERRI on 06/26/2016 at 9:07 X-RAY CHEST ONE VIEW, PORTABLE IMPRESSION: Acute disease is not appreciated in the upright portable chest. Dictated by: Julián Markham M.D Additional Diagnostics [facility] DateTimeAnalyzed 01:09:00 -_ pH ____7.289 - 7.350 7.450 pCO2 ___47.3__ -mmHg 35.0 45.0 pO2 334 -mmHg 69.0 116 HCO3- ___22.0__ -mmol/L 22.0 26.0 AB DateTimeAnalyzed 07:47:00 -_ pH ____7.353 - 7.350 7.450 pCO2 ___42.7__ -mmHg 35.0 45.0 pO2 ___93.9__ -mmHg 69.0 116 HCO3- ___23.1__ -mmol/L 22.0 26.0 Assessment & Plan is a 45 female who has had 4 admissions over the last 6 years for asthma including prior intubations for same. She was admitted for status asthmaticus, requiring intubation this is hospital day 14. 1. Status asthmaticus (asthma exacerbation/acute bronchospasm). Supplemental oxygen needs continue to decrease. Decreased IV steroids supplemented with nebulized steroids. - Albuterol nebulizer 10 mg every 3 hr - Nebulized Ipratropium 0.5 mg every 3 hr - Budesonide 1 mg via nebulizer every 12 hr - Discontinue Solu Medrol 125mg BID - Start Prednisone 60 mg Q 12 hrs - Guaifenesin 200 mg by mouth every 6 hours - Continue with vest and flutter valve per RT - Continue peak flow monitoring pre-and post albuterol treatment per RT - Continue with incentive spirometry and Acapella - Continue with PT eval daily - Continue supplemental O2 via nasal cannula GI Prophylaxis: Not indicated VTE Prophylaxis: Sub-Q Enoxaparin VTE Mechanical Devices: Intermittant Pneumatic CD Resuscitation Status: CPR: Attempt Resuscitation Attending Statement The patient was seen and examined together with Dr. España on 07/06/2016 and I agree with the history, exam and plan as outlined in the note above. KELLY ESPAÑA DO Jul 06, 2016 10:07 Henry Lynch MD Jul 10, 2016 11:08 - Extubated to nasal cannula, Extubated 06/28, on High Flow O2 60l/m at 60% - IgE - 220 - with CT otherwise normal - unlikely ABPA, - Procalcitonin/sputum culture/viral PCR/MRSA swab Khan-negative. - CT PE as above. negative for PE 06/25. - Azithromycin started 06/25. discontinued 06/29. - PT ordered. - Consult pulmonology appreciate recommendations - DC Solu-Medrol 40 mg every 8H. - Solumedrol 125mg IV Q6hrs converted to twice a day on 07/05/2016 - Albuterol Nebulizer for 10mg every two hours - Ipratropium nebulizer 0.5mg Q4hrs - Guaifenesin 200mg PO every 6 hours - Budesonide nebulizer 1 mg twice a day - continue peak flow monitoring post albuterol nebulizer 2. Asthma Exacerbation/Acute Bronchospasm, present on admission, Active and improving. - Continue IV Solu-Medrol - Continue nebulized albuterol scheduled every 4 hours and every hour when necessary. - Continue oxygen - Continue pulmonary toilet to try to avoid mucus plugging - Vest and flutter valve per RT. - guaifenesin - Initially treated with azithromycin for anti-inflammatory effect - PT ordered, continue Incentive spirometry and encourage cough. 3. Hypokalemia, not present on admission, treated stable - Oral Potassium replacement 4. History of Mucous Plugging/Lung Collapse - Early pulmonary toilet attention from RT with potential vest use and flutter valve. - Consult pulmonology appreciate recommendations - Guaifenesin as mucolytic effect 200 mg by mouth every 6 hours - RT using pneumatic percussive vest 5. History of Prediabetes - It is not clear if this is a steroid/chemical diabetes effect or DM type II. - A1c 5.9. - Correction scale lispro 6. Urinary Tract infection, not present on admission, treated - ceftriaxone started 06/29 for Proteus UTI. Discontinued 07/03 - removed mercado Acetaminophen for mild pain when necessary. Bowel regimen Senna and MiraLAX scheduled and PRN. Zofran when necessary for nausea and vomiting. DVT prophylaxis: Lovenox. SCDs in place. Disposition: Improvement remains unfortunately guarded with discharge on hopefully within the next several days. Dependent upon asthma exacerbation and respiratory status. Will be discharged to home when medically stable GI Prophylaxis: Not indicated VTE Prophylaxis: Sub-Q Enoxaparin VTE Mechanical Devices: Intermittant Pneumatic CD Resuscitation Status: CPR: Attempt Resuscitation KELLY ESPAÑA DO Jul 06, 2016 10:07
[2016-07-06] MEDS ORDERED: IPRA0.2S51 NEB (13:28)
[2016-07-06] MEDS ORDERED: BUDE0.5A NEB (13:28)
[2016-07-06] MEDS ORDERED: ALBU2.5V4 INHALATION (13:28)
[2016-07-06] MEDS ORDERED: NEBU-164 MC (13:29)
[2016-07-06] MEDS ORDERED: NEBU1KIT2 MC (13:29)
[2016-07-06] MEDS ORDERED: NEBU-145 MC (13:29)
[2016-07-06] MEDS ORDERED: MONT10TA23 PO (13:29)
[2016-07-06] MEDS ORDERED: [UNRECOGNIZED DRUG - CODE] MC (13:29)
--- NOTE | 2016-07-06 13:47 | PCM.PNMED ---
Subjective Date of Service Jul 06, 2016 Subjective overnight: Patient titrated off high flow to oxymask. No acute events otherwise Today: The patient is breathing much better today. She states that she sat up at the bedside without desaturation. Currently she is wearing an oxygen mask at 6 L/m at FiO2 45% she feels much improved. Her birthday is tomorrow and she would like to go home. Exam Vital Signs Vital Sign - Last Date Time Temp Pulse Resp B/P Pulse Ox O2 Delivery O2 Flow Rate FiO2 07/06/16 06:28 76 20 99 OxyMask 5.00 07/06/16 04:02 36.9 123/67 60 Intake and Output 07/05/16 07/05/16 07/06/16 Cumulative From/Thru 14:59 22:59 06:59 06/23/16 09:47 - 07/06/16 05:25 Intake Total 1046 ml 303 ml 56580 ml Output Total 2 ml 96370 ml Balance 1046 ml 301 ml 3969 ml Intake Oral 920 ml 200 ml 6610 ml IV Total 126 ml 103 ml 75103 ml Tube Feeding 2597 ml Tube Irrigant 776 ml Output Urine Total 2 ml 09521 ml Gastric Drainage Total 100 ml # Voids 1 1 # Bowel Movements 0 0 Exam Gen: General alert and oriented, cooperative in no acute distress on oxygen mask HEENT: Pupils are equally round and reactive to light and accommodation. Extraocular muscles are intact. Sclera are pink and nonicteric. Neck: No lymph nodes are felt head, neck, supraclavicular area, no JVD CV: Heart is regular rate and rhythm without murmur, rubs or gallops PULM: breath sounds clear to auscultation bilaterally except for minor crackles in the left lower base and without any wheezing today Abdomen: soft, normoactive bowel sounds, nontender, no organomegaly. : No mercado in place Extremities: no cyanosis edema or clubbing, pulses intact at dorsalis pedis and radial bilaterally Neuro: exam without noticeable deficit. Cranial nerves II through XII tested intact. Skin: no rash or jaundice, no longer diaphoretic Psych: Normal mood and normal affect Lab and Diagnostics Result Diagram: 07/06/16 0300 07/06/16 0300 X-Rays, CTs and MRIs CT ANGIO CHEST PULMONARY EMBOLISM IMPRESSION: 1. No evidence of pulmonary embolism. 2. Dependent changes are present within the left base as well as a 5 mm groundglass like opacity within the right base, overall nonspecific. Dictated by: Cindy Medley M.D. on 06/25/2016 at 11:36 X-RAY CHEST ONE VIEW, PORTABLE IMPRESSION: Stable chest. Dictated by: Gavin MILLIGAN Interpreted: Arielle Jordan MD on 06/26/2016 at 9 :06 Transcribed by: CHERRI on 06/26/2016 at 9:07 X-RAY CHEST ONE VIEW, PORTABLE IMPRESSION: Acute disease is not appreciated in the upright portable chest. Dictated by: Julián Markham M.D Additional Diagnostics AB DateTimeAnalyzed 01:09:00 -_ pH ____7.289 - 7.350 7.450 pCO2 ___47.3__ -mmHg 35.0 45.0 pO2 334 -mmHg 69.0 116 HCO3- ___22.0__ -mmol/L 22.0 26.0 AB DateTimeAnalyzed 07:47:00 -_ pH ____7.353 - 7.350 7.450 pCO2 ___42.7__ -mmHg 35.0 45.0 pO2 ___93.9__ -mmHg 69.0 116 HCO3- ___23.1__ -mmol/L 22.0 26.0 Assessment & Plan Ms. Lissette Ash is a 45 year old lad with past medical history significant for 4 admissions over the last 6 years for asthma, with 3-4 prior intubations. Prior to admission she had 5 days with increasing shortness breath and coughing. Her O2 sat is 90-92% on room air, dropping into the 80s with exertion on room air. There has been no fever and the chest x-ray shows no pneumonia. Shortly thereafter patient was requiring increased amounts of oxygen to maintain saturations, and was subsequently intubated. Hospital Day 13 1. Acute hypercapneic and hypoxic respiratory failure, not present on admission. Active. - due to asthma exacerbation and possibly viral vs bacterial pneumonia. Not on oxygen at home. - Patient's daughter Susana reports the patient has been intubated 3-4 other times in the past with a minimum of one week stay at the hospital during these times. - Extubated to nasal cannula, Extubated 06/28, on titrated off High Flow O2 60l/m at 60% to oxygen mask 6 L/m at 45% FiO2 - IgE - 220 - with CT otherwise normal - unlikely ABPA, - Procalcitonin/sputum culture/viral PCR/MRSA swab Khan-negative. - CT PE as above. negative for PE 06/25. - Azithromycin started 06/25. discontinued 06/29. - PT ordered. - Consult pulmonology appreciate recommendations - Solumedrol 125mg IV Q6hrs converted to twice a day on 07/05/2016 discontinued on 07/06 to prednisone 60 mg twice a day - Albuterol Nebulizer for 10mg every 4 hours - Ipratropium nebulizer 0.5mg twice a day - Guaifenesin 200mg PO every 6 hours - Budesonide nebulizer 1 mg twice a day - continue peak flow monitoring post albuterol nebulizer 2. Asthma Exacerbation/Acute Bronchospasm, present on admission, Active and improving. - Continue IV Solu-Medrol - Continue nebulized albuterol scheduled every 4 hours and every hour when necessary. - Continue oxygen - Continue pulmonary toilet to try to avoid mucus plugging - Vest and flutter valve per RT. - guaifenesin - Initially treated with azithromycin for anti-inflammatory effect discontinued - PT ordered, continue Incentive spirometry and encourage cough. 3. Hypokalemia, not present on admission, treated stable - Oral Potassium replacement 4. History of Mucous Plugging/Lung Collapse - Early pulmonary toilet attention from RT with potential vest use and flutter valve. - Consult pulmonology appreciate recommendations - Guaifenesin as mucolytic effect 200 mg by mouth every 6 hours - RT using pneumatic percussive vest 5. History of Prediabetes - It is not clear if this is a steroid/chemical diabetes effect or DM type II. - A1c 5.9. - Correction scale lispro 6. Urinary Tract infection, not present on admission, treated - ceftriaxone started 06/29 for Proteus UTI. Discontinued 07/03 - removed mercado Acetaminophen for mild pain when necessary. Bowel regimen Senna and MiraLAX scheduled and PRN. Zofran when necessary for nausea and vomiting. DVT prophylaxis: Lovenox. SCDs in place. Disposition: Significant improvement with discharge hopefully within the next few days. Dependent upon asthma exacerbation and respiratory status. Will be discharged to home when medically stable GI Prophylaxis: Not indicated VTE Prophylaxis: Sub-Q Enoxaparin VTE Mechanical Devices: Intermittant Pneumatic CD Resuscitation Status: CPR: Attempt Resuscitation Attending Statement The patient was seen and examined together with Dr. Velazquez on 07/06/2016 and I agree with the history, exam and plan as outlined in the note above. . Rc Velazquez DO Jul 06, 2016 07:34 Bob Roy MD Jul 08, 2016 09:42
--- NOTE | 2016-07-06 15:15 | NUR ---
Social Work: Readiness for Discharge D: Pt discussed with MD. Pt's respiratory status is greatly improved compared to the last several days. Pt currently on 6L oxymask and able to sit up without desaturation. Per care trends, pt has been ambulating SBA to the bathroom. MD is requesting MANAGER TREASURY run medications for private pay cost and inquire about private pay cost of nebulizer. Pt has prescriptions filled at [facility] and receives financial assistance based on a sliding fee scale. [facility] is not open at this time and MANAGER TREASURY unable to determine what pt's cost would be at [facility]. Private pay rate for each prescription at [facility] are as follows. made aware. ALbuterol Neb Solution= $18.20 Ipratropium [place] = $4.00. Pulmicort- $243 Montelukast- $36.52 t/c to [place] at [facility]. He states the private pay rate for a nebulizer is $75. [place] would not be able to deliver this until Friday. MANAGER TREASURY met with pt at bedside to discuss discharge planning and issues obtaining medications. Pt states the cost of medications is very important to her and that she gets her medications at [facility]. Pt states she owns a nebulizer already and does not need to purchase one. Pt believes she should be able to cover the cost of all medications excluding the Pulmicort. MANAGER TREASURY updated MD of this. Pt confirms that she has been doing much better with ambulation since her respiratory status has improved. She has no concerns about discharge home other than the cost of her medications. A: Pt who lives at home with her spouse and is I at baseline. P: Anticipate pt to discharge home via POV once medically stable; Pt provided with keisha care application and private pay costs for medications. WILVER Denise
[2016-07-06] MEDS ORDERED: BECL8.7A6 INHALATION (15:31)
[2016-07-06] MEDS ORDERED: Ipratropium 0.02% 0.5 mg/2.5 mL Inhalation Solution NEB PRN (16:15)
[2016-07-06] MEDS ORDERED: Albuterol 2.5 mg/3 mL Inhalation Solution NEB SCH (16:30)
[2016-07-06] MEDS: predniSONE 20 mg Tablet PO SCH (20:12)
[2016-07-06] MEDS: Albuterol 2.5 mg/3 mL Inhalation Solution NEB PRN (20:16)
[2016-07-06] MEDS ORDERED: HYDROmorphone 1 mg/mL Inj IVPUSH ONE (22:45)
[2016-07-07] VITALS (12 sets, daily range): BP systolic 107–136; BP diastolic 69–84; PULSE 77–94; RESP 16–20; O2SAT 95–99
[2016-07-07] MEDS: HYDROmorphone 1 mg/mL Inj IVPUSH PRN ×2 (01:51→23:39)
[2016-07-07] MEDS: Insulin LISPRO 300 Unit/3 mL Inj SUBQ SCH ×5 (02:30→20:43)
[2016-07-07] MEDS: 0.9% Sodium Chloride 1,000 ML IV SCH (04:37)
[2016-07-07 06:40] LABS: BASOPHILS % (AUTO) 0.1 % (0-3); EOSINOPHILS % (AUTO) 0 % (0-5); MONOCYTES % (AUTO) 3.2 % (4-12); Mean Corpuscular Volume 85.4 fL (81-100); NEUTROPHILS % (AUTO) 89.6 % (40-74); Platelet Count 116 bil/L (150-400)
[2016-07-07] MEDS ORDERED: Succinylcholine Chloride 20 mg/mL 5 mL Inj ONE (07:04)
[2016-07-07] MEDS: Albuterol 2.5 mg/3 mL Inhalation Solution NEB SCH ×2 (07:20→11:10)
[2016-07-07] MEDS: Ipratropium 0.02% 0.5 mg/2.5 mL Inhalation Solution NEB SCH ×2 (07:20→11:10)
--- NOTE | 2016-07-07 07:40 | NUR ---
Leg/Knee pain Pt complained of leg pain and cramping especially the right leg/knee from previous RN. VSS. made aware and seen the patient. Patient given increased dose of Lovenox and Dilaudid for pain. Pt reported that pain down to 8 after Dilaudid but did not go away at all. Patient started c/o and restless, crying and c/o leg pain. She mentioned that the pain/cramp affects both her legs. She is able to move her leg and intact sensation during the incident. Md made aware. Ativan and Hydromorphone given and pt reported that helps reduce the pain to 7-8/10 and helps her calm down. She mentioned that the pain does not completely go away.
[2016-07-07] MEDS: predniSONE 20 mg Tablet PO SCH ×2 (08:55→20:46)
--- NOTE | 2016-07-07 11:00 | NUR ---
Pain.. Pt noted this am to have ongoing leg pain that she rated as a 10.. but was able to amb in room and sit in chair. Appeared more comfortable once in chair. Was given Tylenol and later stated it was effective in relieving pain. US of leg was neg for DVT and this was relayed to Dr Moreno. Has been weaned down on O2 per cannula with Spo2 remaining stable. at bedside and assisting in care.
--- NOTE | 2016-07-07 12:16 | DRSVH ---
PROCEDURE: US VEINOUS LEG DUPLEX UNILATERAL, RIGHT INDICATIONS: R leg pain TECHNIQUE: Real-time imaging, as well as color and pulse Doppler interrogation, were performed of the lower extr emity deep veins from the inguinal ligament to the popliteal fossa. COMPARISON: None. FINDINGS: The deep veins are normally compressible, and free of intraluminal thrombus. Color and pu lse Doppler demonstrate normal phasic intraluminal flow. There is normal augmentation response to di stal compression maneuver. IMPRESSION: No deep vein thrombosis of the right lower extremity. Dictated by: Maggy Arcos M.D. on 07/07/2016 at 12:14 Approved by: Maggy Arcos M.D. on 07/07/2016 at 12:15
--- NOTE | 2016-07-07 12:43 | PCM.PNMED ---
Subjective Date of Service Jul 07, 2016 Subjective Patient reports doing very well this morning. She seems quite happy that her oxygen requirement is down and that her breathing feels so much better. Overnight, the patient had pain in her legs. She states that she thought they were muscle cramps but US of the lower extremity was ordered to rule out DVT. Exam Vital Signs Vital Sign - Last Date Time Temp Pulse Resp B/P Pulse Ox O2 Delivery O2 Flow Rate FiO2 07/07/16 12:08 37.0 90 20 126/69 96 Room Air 07/07/16 11:15 2.00 07/06/16 04:02 60 Intake and Output 07/06/16 07/06/16 07/07/16 Cumulative From/Thru 15:00 23:00 07:00 06/23/16 09:47 - 07/07/16 05:42 Intake Total 1723 ml 200 ml 01154 ml Output Total 350 ml 2500 ml 52341 ml Balance -350 ml -777 ml 200 ml 3042 ml Intake Oral 1625 ml 200 ml 8435 ml IV Total 98 ml 33747 ml Tube Feeding 2597 ml Tube Irrigant 776 ml Output Urine Total 350 ml 2500 ml 85775 ml Gastric Drainage Total 100 ml # Voids 4 2 7 # Bowel Movements 2 0 2 Exam Gen: General alert and oriented, cooperative, no acute distress, nasal cannula in place HEENT: PERRLA, EOMI, Sclera are pink and nonicteric. Neck: No JVD CV: Heart is regular rate and rhythm without murmur, rubs or gallops PULM: Mild wheezing present in the upper lung graves this AM Abdomen: soft, normoactive bowel sounds, nontender, no organomegaly. : No mercado in place Extremities: no cyanosis edema or clubbing, pulses intact at dorsalis pedis and radial bilaterally Neuro: cranial nerves grossly intact, can move upper and lower extremities grossly with strength intact, normal speech Skin: Warm, dry, no jaundice noted Psych: Normal mood and normal affect IVs and Medications Medications Reviewed: Medications were reviewed in detail Lab and Diagnostics Result Diagram: 07/07/1630 07/07/16 06 X-Rays, CTs and MRIs CT ANGIO CHEST PULMONARY EMBOLISM IMPRESSION: 1. No evidence of pulmonary embolism. 2. Dependent changes are present within the left base as well as a 5 mm groundglass like opacity within the right base, overall nonspecific. Dictated by: Cindy Medley M.D. on 06/25/2016 at 11:36 X-RAY CHEST ONE VIEW, PORTABLE IMPRESSION: Stable chest. Dictated by: Gavin MURRAY Interpreted: Arielle Jordan MD on 06/26/2016 at 9 :06 X-RAY CHEST ONE VIEW, PORTABLE IMPRESSION: Acute disease is not appreciated in the upright portable chest. Dictated by: Julián Markham M.D Assessment & Plan Patient is a 45 year old lad with past medical history significant for 4 admissions over the last 6 years for asthma, with 3-4 prior intubations. Prior to admission she had 5 days with increasing shortness breath and coughing. Her O2 sat is 90-92% on room air, dropping into the 80s with exertion on room air. There has been no fever and the chest x-ray shows no pneumonia. Shortly thereafter patient was requiring increased amounts of oxygen to maintain saturations, and was subsequently intubated. Hospital Day 14 1. Acute hypercapnic and hypoxic respiratory failure, not present on admission. Improved. - Due to asthma exacerbation and possibly viral vs bacterial pneumonia. Not on oxygen at home. - Extubated 3/3, then needed hi-flow O2 until 07/06/16. Today, patient on nasal cannula and tolerating well/. - Dr. Lynch of pulmonology consulted and we appreciate his input. - Continue PT and getting out of bed as tolerated. - Continue prednisone 60 mg BID and plan for long, slow taper. Patient will need close follow up with PCP - Aidan Lepe. - Continue albuterol neb 5 mg QIDWA. - Continue atrovent nebulizer QID WA. - Continue incentive spirometry and peak flow monitoring. 2. Asthma Exacerbation/Acute Bronchospasm, acute on chronic, present on admission, improved. - Continue prednisone, nebulizers as above in #1. - Continue use of acapella flutter valve to try to avoid mucus plugging. - Encourage coughing and activity. - Will need outpatient follow up closely and likely pulmonology referral. Could consider use of Xolair or similar medication for better chcf management. 3. Hypokalemia, not present on admission, treated stable - Continue to monitor BMP and replete as needed. 4. History of Mucous Plugging/Lung Collapse. - Continue pulmonary toilet. - Continue guaifenesin 200mg PO every 6 hours PRN cough. 5. History of Prediabetes - It is not clear if this is a steroid/chemical diabetes effect or DM type II. - A1c 5.9. - Correction scale lispro available as needed. - Patient will need outpatient follow up with PCP. 6. Urinary Tract infection, not present on admission, treated - Ceftriaxone started 06/29 for Proteus UTI. Discontinued 07/03 - Acetaminophen for mild pain when necessary. - Bowel regimen Senna and MiraLAX scheduled and PRN. - Antiemetic available PRN. Disposition: Significant improvement with discharge possible for tomorrow (). Patient will need close follow up with Aidan Lepe (PCP) and likely needs referral to pulmonology for better chcf management. Patient will need assistance with inhaled medication choices for least expensive options available when [facility] pharmacy open tomorrow. GI Prophylaxis: Not indicated VTE Prophylaxis: Sub-Q Enoxaparin VTE Mechanical Devices: Intermittant Pneumatic CD Resuscitation Status: CPR: Attempt Resuscitation Attending Statement The patient was seen and examined together with Dr. Moreno on 07/07/2016 and I agree with the history, exam and plan as outlined in the note above. . Lissett Moreno DO Jul 07, 2016 12:43 Bob Roy MD Jul 08, 2016 09:42
[2016-07-07] MEDS ORDERED: Albuterol 2.5 mg/3 mL Inhalation Solution NEB PRN (14:25)
[2016-07-07] MEDS: Albuterol-Ipratropium 3 mL Inhalation Solution NEB SCH ×2 (16:35→20:53)
[2016-07-08] VITALS (8 sets, daily range): BP systolic 100–123; BP diastolic 59–75; PULSE 65–94; RESP 16–20; O2SAT 92–95
--- NOTE | 2016-07-08 02:53 | NUR ---
pain: pt. c/o leg/calf pain, cramping tylenol given, one dose iv dilaudid given last night, scd's off, will reassess.
[2016-07-08] MEDS: 0.9% Sodium Chloride 1,000 ML IV SCH (04:37)
[2016-07-08] MEDS: Insulin LISPRO 300 Unit/3 mL Inj SUBQ SCH ×2 (07:42→14:30)
[2016-07-08] MEDS: Albuterol-Ipratropium 3 mL Inhalation Solution NEB SCH ×3 (07:53→16:13)
[2016-07-08] MEDS: predniSONE 20 mg Tablet PO SCH (08:02)
[2016-07-08] MEDS ORDERED: MONT10TA23 PO (15:28)
[2016-07-08] MEDS ORDERED: ALBU2.5V4 NEB (15:28)
[2016-07-08] MEDS ORDERED: IPRA3AMP NEB (15:28)
[2016-07-08] MEDS ORDERED: PRE10 PO (15:28)
--- NOTE | 2016-07-08 16:58 | PCM.DIMED ---
Rc Velazquez DO 07/08/16 1552: Discharge Instructions Date of Service Jul 08, 2016 Dates of Hospitalization Jun 23, 2016 at 15:26 Discharge Diagnosis Discharge Diagnosis 1. Acute hypercapnic and hypoxic respiratory failure 2. Asthma Exacerbation/Acute Bronchospasm 3. Hypokalemia, not present on admission, treated stable 4. History of Mucous Plugging/Lung Collapse. 5. History of Prediabetes 6. Urinary Tract infection Medication Instructions The following prescriptions were called into your [facility] pharmacy. Please chart picker all your available prescriptions. You will be sent on sent with two prescriptions for prednisone. The prescription directions have been written for the pharmacy. The prescription is written for 5mg prednisone pills for ease of dosing and to limit cost. You will be required to count out 5mg pills for your daily dosing. The initial prednisone prescription is for a prednisone taper from 60mg daily to cut the prednisone dose down weekly until you are on 10mg daily. The dosing works as described below: Prednisone 60mg (12 pills total) daily for the 1st week after hospitalization Prednisone 50mg (10 pills total) daily for the 2nd week after hospitalization Prednisone 40mg (8 pills total) daily for the 3rd week after hospitalization Prednisone 30mg (6 pills total) daily for the 4th week after hospitalization Prednisone 20mg (4 pills total) daily for the 5th week after hospitalization The second prednisone prescription will be Prednisone 10mg (2 pills) daily to be taken until your PCP either changes your outpatient steroids to inhaled steroids or until you are seen by a practice managers. Please continue to take your regular medications as directed. You can carry your albuterol rescue inhaler for emergencies, however a prescription has been provided for albuterol nebulizers which you may take for shortness of breath and wheezing when you are home with your home nebulizer machine available. Your home nebulizer will be able to provide better medication distribution to your lungs. Please use these nebulizer medications. You will also be sent with Ipratropium nebulizer to be taken as scheduled twice daily morning and night and Albuterol nebulizer to be taken every 2 hours as needed for shortness of breath and wheezing. Lastly you will be sent with montelukast 10mg to be taken daily at night. Las siguientes recetas se linn enviado a hernandez farmacia [facility]. Por favor recoger todas alexander recetas. Se le van a jeni dos recetas para prednisone. Las indicaciones de la receta se linn escrito para la farmacia. La receta est escrita para 5mg de prednisone en pastilla para que sea ms facil tomarlas y para limitar el costo. Va a tener que contar las pastillas de 5mg para hernandez dosis diaria. La receta inicial de prednisone es para para ir bajando semanalmente la prednisone de 60mg diariamente hasta llegar a 10mg diariamente. la dosis trabaja lucy se describe abajo: Prednisone 60mg (12 pastillas en total) diariamente yudith la 1ra semana despu s de la hospitalizacin Prednisone 50mg (10 pastillas en total) diariamente yudith la 2da semana despu s de hernandez hospitalizacin Prednisone 40mg (8 pastillas en total) diariamente yudith la 3ra semana despu s de la hospitalizacin Prednisone 30mg (6 pastillas en total) diariamente yudith la 4ta semana despu s de la hospitalizacin Prednisone 20mg (4 pastillas en total) diariamente yudith la 5ta semana despu s de la hospitalizacin La segunda receta de prednisone ser de Prednisone 10mg (2 pastillas) diariamente para que las tome hasta que hernandez proveedor de shannon primaria (PCP) cambie alexander esteroides lucy paciente externo a esteroides inhalados o hasta que la cynthia un neumlogo.. Por favor siga tomando las medicinas que telly regularmente karsten lucy se le moreno indicado. Puede llevar hernandez albuterol de rescate para emergencias, sin embargo, se le moreno dado ting receta para albuterol en nebulizador el cual puede usar cuando le falta el aliento y cuando le silba el pecho cuanod usted est en la casa y tenga la mquina para nebulizar disponible. El nebullizador de hernandez casa va a poder proveer y distribuir el medicamento de mejor manera en alexander pulmones. Por favor use estos medicamentos con hernandez nebulizador. Tambin se le va a forest Ipratropium en nebulizador para que los use karsten lucy est programado dos veces al da, maana y noche y el Albuterol en nebulizador para que lo use cada 2 horas cuando sea necesario para la falta de aliento y silbido. Por ltimo se le va a enviar con 10 mgs de montelukast para que los tome diariamente en la noche. GR/Occupational Therapy Supervisor Diet Diabetic Activity Limited until seen by PCP Call your provider Fever or Chills, Shortness of breath, Chest pain, Vomitting, Other (decreased on measured peak flow ) Patient Instructions Please chart picker and take all your prescription medications as directed until seen by your primary care doctor. Because you are in chronic prednisone, you are at risk for infections. At the first sign of infection please come into the hospital or your primary care provider to be seen and evaluated. Signs of infection include fever, chills, worsening cough, pain on urination, increased urinary frequency and urgency, and diarrhea. Por favor recoja y tome todos alexander medicamentos karsten lucy se le moreno indicado hasta que cynthia hernandez doctor de shannon primaria. Ya que usted ya est tomando prednisone por mucho tiempo, usted est predispuesta a infecciones, entonces debe hacerse revisar y evaluarse por alguna seal de infecciones, sobre todo fiebre, escalof os, tos que empeore, dolor al orinar, aumento y/o urgencia de la necesidad de orinar o diarrea. GR/Occupational Therapy Supervisor Follow-up plan Please see your primary care physician as soon as possible within the next week. He will be able to refer you to a practice managers as well as an cathode maker. You should be seen by an a specialist to avoid any further complications due to your asthma. Por favor cynthia a hernandez proveedor de shannon primaria antonio pronto lucy sea posible en la semana que viene. El va a poder referirla a un neumlogo asi lucy tambin con hernandez mdico que se encargue de alergias. Tiene que hacerse cuate por un especialista para evitar mayores complicaciones debido a hernandez asma. GR/Occupational Therapy Supervisor Follow-up Provider: Aidan Lepe MD Follow-up with PCP in: 1 week (you are not diabetic currently but you should avoid high sugar foods in the future) Rubi Rossi MD 07/09/16 1520: Discharge Instructions Attending's Statement The patient was seen and examined together with Dr. Velazquez on 07-08-16 and I agree with the history, exam and plan as outlined in the note above. Rc Velazquez DO Jul 08, 2016 15:52 Rubi Rossi MD Jul 09, 2016 15:20
--- NOTE | 2016-07-08 16:59 | NUR ---
Social Work Note: Discharge Data& Assessment: EMR reviewed. Per pt is medically ready for discharge. Lissette Ash is a 46 year old female admitted on 06/23/2016 for asthma exacerbation. Per pt is medically improved, has finished steroids, and has been cleared to return home by PT. Pt prescriptions filled at [facility], prescriptions called in. SW met with pt and pt at bedside to confirm discharge plan and assess for any unmet needs. Pt and pt deny any other needs. All updated and agreeable to plan. No other discharge needs identified. Plan: Per pt is medically improved and ready for discharge. Pt prescriptions to be picked up at [facility] in [facility] before 9p.m. Pt to follow up with PCP at [facility] in the next week. Pt and pt deny any other needs. All updated and agreeable to plan. No other discharge needs identified. IWLVER Anders
--- NOTE | 2016-07-08 17:45 | NUR ---
Discharge: Pt given care notes r/t albuterol, duoneb, prednisone, and montelukast. Physician discharge instructions translated by telecommunication equipment repairer, pt received both maori and estonian translations. Triple Lumen IJ line d/c'd by IV therapy. Prescriptions sent to [facility] in [place], pt to pick them up upon discharge. Pt/spouse deny having any questions. D/c'd home with all personal belongings, spouse providing transport.
--- NOTE | 2016-07-08 20:34 | PCM.DC.MED ---
Discharge Summary Date of Service Jul 08, 2016 Dates of Hospitalization Date of Hospital Admission Jun 23, 2016 at 15:26 Date of Discharge: Jul 08, 2016 Providers: Admitting Physician: Rochelle Perez MD Primary Care Physician: Aidan Lepe MD Attending Physician: Rochelle Perez MD Diagnosis at Time of Discharge Diagnosis at Time of Discharge 1. Acute hypercapnic and hypoxic respiratory failure 2. Asthma Exacerbation/Acute Bronchospasm 3. Hypokalemia, not present on admission, treated stable 4. History of Mucous Plugging/Lung Collapse. 5. History of Prediabetes 6. Urinary Tract infection Consultations pulmonology and critical care Procedures XRay, CTs & MRIs CT ANGIO CHEST PULMONARY EMBOLISM IMPRESSION: 1. No evidence of pulmonary embolism. 2. Dependent changes are present within the left base as well as a 5 mm groundglass like opacity within the right base, overall nonspecific. Dictated by: Cindy Medley M.D. on 06/25/2016 at 11:36 X-RAY CHEST ONE VIEW, PORTABLE IMPRESSION: Stable chest. Dictated by: Gavin Grover [facility] Interpreted: Arielle Jordan MD on 06/26/2016 at 9 :06 X-RAY CHEST ONE VIEW, PORTABLE IMPRESSION: Acute disease is not appreciated in the upright portable chest. Dictated by: Julián Markham M.D Brief History from the H&P of Rochelle Perez MD "She has had 4 admissions over the last 6 years for asthma. She has been intubated once in the past. She says she has never seen an area field person but wants to know more about why she keeps getting this. Her last episode in September was 10 days in the hospital eventually she experienced left lower lung collapse from mucous plugging that required bronchoscopy to clear. This episode has been going on for 5 days with increasing shortness breath and coughing. Finally the treatments seemed to stop working and she has not been able to sleep for the last 2 nights. In the emergency department she received magnesium, steroids, albuterol with good effect. Her O2 sat is 90-92% on room air, dropping into the 80s with exertion on room air. There has been no fever and the chest x-ray shows no pneumonia." Hospital Course 1. Acute hypercapnic and hypoxic respiratory failure, not present on admission. Improved. - Due to asthma exacerbation and possibly viral vs bacterial pneumonia. Not on oxygen at home. - Extubated 06/28, then needed hi-flow O2 until 07/06/16. Today, patient on nasal cannula and tolerating well. - Dr. Lynch of pulmonology consulted and we appreciate his input. - Continue PT and getting out of bed as tolerated. - Patient initially placed on high dose IV steroids up to Methylprednisolone 125mg QID - eventually transitioned to prednisone 60 mg and plan for long, slow taper. Patient will need close follow up with PCP - Aidan Lepe. - High doses of albuterol nebulizers 10mg every 2 hours, eventually continue albuterol neb 5 mg QIDWA - Ipratropium nebulizer QID WA, titrated down at discharge - Continue incentive spirometry and peak flow monitoring. - patient discharged with an asthma action plan 2. Asthma Exacerbation/Acute Bronchospasm, acute on chronic, present on admission, improved. - as described above in #1. - Continue use of acapella flutter valve to try to avoid mucus plugging. - Encourage coughing and activity. - Will need outpatient follow up closely and likely pulmonology referral. Could consider use of Xolair or similar medication for better chcf management. 3. Hypokalemia, not present on admission, treated stable - Continue to monitor BMP and replete as needed. 4. History of Mucous Plugging/Lung Collapse. - Continue pulmonary toilet. - Continue guaifenesin 200mg PO every 6 hours PRN cough. 5. History of Prediabetes - It is not clear if this is a steroid/chemical diabetes effect or DM type II. - A1c 5.9. - Correction scale lispro available as needed. - Patient will need outpatient follow up with PCP. 6. Urinary Tract infection, not present on admission, treated - Ceftriaxone started 06/29 for Proteus UTI. Discontinued 07/03 - Acetaminophen for mild pain when necessary. - Bowel regimen Senna and MiraLAX scheduled and PRN. - Antiemetic available PRN. Exam Vital Signs (Last) Date Time Temp Pulse Resp B/P Pulse Ox O2 Delivery O2 Flow Rate FiO2 07/08/16 16:40 36.9 94 16 122/75 95 Room Air 07/07/16 11:15 2.00 07/06/16 04:02 60 Exam Gen: General alert and oriented, cooperative in no acute distress on oxygen mask HEENT: Pupils are equally round and reactive to light and accommodation. Extraocular muscles are intact. Sclera are pink and nonicteric. Neck: No lymph nodes are felt head, neck, supraclavicular area, no JVD CV: Heart is regular rate and rhythm without murmur, rubs or gallops PULM: breath sounds clear to auscultation bilaterally and without any wheezing on rales or rhonchi today Abdomen: soft, normoactive bowel sounds, nontender, no organomegaly. : No mercado in place Extremities: no cyanosis edema or clubbing, pulses intact at dorsalis pedis and radial bilaterally Neuro: exam without noticeable deficit. Cranial nerves II through XII tested intact. Skin: no rash or jaundice, no longer diaphoretic Psych: Normal mood and normal affect Test 06/23/16 09:55 06/24/16 02:55 06/24/16 06:55 06/28/16 04:20 Hemoglobin A1c 5.9% (4.8-5.6) Urine Color Dark yellow (YELLOW) Urine Appearance Hazy (CLEAR,HAZY) Urine pH 6.0 (5.0-8.0) Urine Specific [place] 1.037 (1.003-1.035) Urine Protein 100mg/dL (NEG,TRACE) Urine Glucose (UA) Negativemg/dL (NEGATIVE) Urine Ketones Negativemg/dL (NEGATIVE) Urine Occult Blood Trace (NEGATIVE) Urine Nitrite Negative (NEGATIVE) Urine Bilirubin Negative (NEGATIVE) Urine Urobilinogen Normalmg/dL (NORMAL) Urine Leukocyte Esterase Negative (NEGATIVE) Urine RBC 3-10/hpf (0-2) Urine WBC 0-5/hpf (0-5) Urine Epithelial Cells Many/hpf (NONE-MOD) Urine Crystals None seen (NONE SEEN) Urine Bacteria None/hpf (NONE-FEW) Urine Hyaline Casts 5/20/lpf (NONE) Urine Granular Casts Occasional (NONE SEEN) Urine Waxy Casts None seen (NONE SEEN) Urine Red Blood Cell Casts None seen (NONE SEEN) Urine White Blood Cell Casts None seen (NONE SEEN) Urine Mucus Present (None Seen) Urine Trichomonas None seen (NONE SEEN) Urine Yeast None (NONE SEEN) Urine Culture Reflexed Not indicated Hold Urine Received (Received) Immunoglobulin E 221IU/mL (0-100) Triglycerides Level 146mg/dL (0-149) Lipase 27U/L (13-60) Test 06/30/16 04:30 07/03/16 04:35 07/05/16 04:20 07/06/16 03:00 Band Neutrophils % 4% (1-5) Lactic Acid Level 1.1mmol/L (0.4-2.0) C-Reactive Protein < 0.0mg/dL (0.0-0.5) Hepatitis A IgM Antibody Negative (Negative) Hepatitis B Surface Antigen Negative (Negative) Hepatitis B Core IgM Antibody Negative (Negative) Hepatitis C Antibody <0.1s/co ratio (0.0-0.9) Hepatitis C Comment Comment (.) Erythrocyte Sedimentation Rate 2mm/hr (0-32) Procalcitonin 0.06ng/mL (0.00-0.08) Phosphorus Level 3.1mg/dL (2.5-4.9) Magnesium Level 2.3mg/dL (1.6-2.6) Test 07/07/16 06:30 White Blood Count 18.1th/mm3 (3.8-10.1) Red Blood Count 4.79mil/mm3 (3.90-5.20) Hemoglobin 13.4g/dL (12.0-15.6) Hematocrit 40.9% (35.0-46.0) Mean Corpuscular Volume 85.4fL (81-100) Mean Corpuscular Hemoglobin 28.0pg (27.0-35.0) Mean Corpuscular Hemoglobin Concent 32.8% (32.0-37.0) Red Cell Distribution Width 13.6% (12.3-15.4) Platelet Count 116bil/L (150-400) Neutrophils (%) (Auto) 89.6% (40-74) Lymphocytes (%) (Auto) 4.5% (14-46) Monocytes (%) (Auto) 3.2% (4-12) Eosinophils (%) (Auto) 0% (0-5) Basophils (%) (Auto) 0.1% (0-3) Sodium Level 136mEq/L (134-144) Potassium Level 4.4mEq/L (3.5-5.2) Chloride Level 101mEq/L (97-108) Carbon Dioxide Level 23mmol/L (18-29) Blood Urea Nitrogen 19mg/dL (6-24) Creatinine 0.47mg/dL (0.57-1.00) Estimat Glomerular Filtration Rate 203mL/min (>59) Glucose Level 127mg/dL (60-99) Calcium Level 8.0mg/dL (8.5-10.1) Total Bilirubin 0.6mg/dL (0.0-1.2) Aspartate Amino Transf (AST/SGOT) 42U/L (0-50) Alanine Aminotransferase (ALT/SGPT) 135U/L (0-32) Alkaline Phosphatase 53U/L (25-150) Total Protein 5.3g/dL (6.4-8.4) Albumin 3.3g/dL (3.4-5.0) Microbiology Results Microbiology LONNIE CULT URINE Final 06/29/16 Organism 1 PROTEUS MIRABILIS U COLONY COUNT/QUANTITY >100,000 CFU/ml Discharge Medications Discharge Medications ([Cetirizine Hcl]) 10 MG TABLET 10 MG PO HS Prescribed by: DARI VAZQUEZ, DO As needed Triamcinolone Acetonide (Nasacort) 10.8 Ml [place] 1 ML NS DAILY PRN PRN For Congestion (Reported) Additional med instructions The following prescriptions were called into your [facility] pharmacy. 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 You will be sent on sent with two prescriptions for prednisone. The prescription directions have been written for the pharmacy. The prescription is written for 5mg prednisone pills for ease of dosing and to limit cost. You will be required to count out 5mg pills for your daily dosing. The initial prednisone prescription is for a prednisone taper from 60mg daily to cut the prednisone dose down weekly until you are on 10mg daily. The dosing works as described below: Prednisone 60mg (12 pills total) daily for the 1st week after hospitalization Prednisone 50mg (10 pills total) daily for the 2nd week after hospitalization Prednisone 40mg (8 pills total) daily for the 3rd week after hospitalization Prednisone 30mg (6 pills total) daily for the 4th week after hospitalization Prednisone 20mg (4 pills total) daily for the 5th week after hospitalization The second prednisone prescription will be Prednisone 10mg (2 pills) daily to be taken until your PCP either changes your outpatient steroids to inhaled steroids or until you are seen by a remote encoding operations supervisor. Please continue to take your regular medications as directed. You can carry your albuterol rescue inhaler for emergencies, however a prescription has been provided for albuterol nebulizers which you may take for shortness of breath and wheezing when you are home with your home nebulizer machine available. Your home nebulizer will be able to provide better medication distribution to your lungs. Please use these nebulizer medications. You will also be sent with Ipratropium nebulizer to be taken as scheduled twice daily morning and night and Albuterol nebulizer to be taken every 2 hours as needed for shortness of breath and wheezing. Lastly you will be sent with montelukast 10mg to be taken daily at night. Las siguientes recetas se linn enviado a hernandez farmacia [facility]. Por favor recoger todas alexander recetas. Se le van a jeni dos recetas para prednisone. Las indicaciones de la receta se linn escrito para la farmacia. La receta est escrita para 5mg de prednisone en pastilla para que sea ms facil tomarlas y para limitar el costo. Va a tener que contar las pastillas de 5mg para hernandez dosis diaria. La receta inicial de prednisone es para para ir bajando semanalmente la prednisone de 60mg diariamente hasta llegar a 10mg diariamente. la dosis trabaja lucy se describe abajo: Prednisone 60mg (12 pastillas en total) diariamente yudith la 1ra semana despu s de la hospitalizacin Prednisone 50mg (10 pastillas en total) diariamente yudith la 2da semana despu s de hernandez hospitalizacin Prednisone 40mg (8 pastillas en total) diariamente yudith la 3ra semana despu s de la hospitalizacin Prednisone 30mg (6 pastillas en total) diariamente yudith la 4ta semana despu s de la hospitalizacin Prednisone 20mg (4 pastillas en total) diariamente yudith la 5ta semana despu s de la hospitalizacin La segunda receta de prednisone ser de Prednisone 10mg (2 pastillas) diariamente para que las tome hasta que hernandez proveedor de shannon primaria (PCP) cambie alexander esteroides lucy paciente externo a esteroides inhalados o hasta que la cynthia un neumlogo.. Por favor siga tomando las medicinas que telly regularmente karsten lucy se le moreno indicado. Puede llevar hernandez albuterol de rescate para emergencias, sin embargo, se le moreno dado ting receta para albuterol en nebulizador el cual puede usar cuando le falta el aliento y cuando le silba el pecho cuanod usted est en la casa y tenga la mquina para nebulizar disponible. El nebullizador de hernandez casa va a poder proveer y distribuir el medicamento de mejor manera en alexander pulmones. Por favor use estos medicamentos con hernandze nebulizador. Tambin se le va a forest Ipratropium en nebulizador para que los use karsten lucy est programado dos veces al da, maana y noche y el Albuterol en nebulizador para que lo use cada 2 horas cuando sea necesario para la falta de aliento y silbido. Por ltimo se le va a enviar con 10 mgs de montelukast para que los tome diariamente en la noche. 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 He will be able to refer you to a remote encoding operations supervisor as well as an area field person. You should be seen by an a specialist to avoid any further complications due to your asthma. Por favor cynthia a hernandez proveedor de shannon primaria antonio pronto lucy sea posible en la semana que viene. El va a poder referirla a un neumlogo asi lucy jack con hernandez mdico que se encargue de alergias. Tiene que hacerse cuate por un especialista para evitar mayores complicaciones debido a hernandez asma. GR/Golf Cart Repairer Discharge Diet: Diabetic Discharge Activity: Limited until seen by PCP Patient Instructions Please pickers material handlers and take all your prescription medications as directed until seen by your primary care doctor. Because you are in chronic prednisone, you are at risk for infections. At the first sign of infection please come into the hospital or your primary care provider to be seen and evaluated. Signs of infection include fever, chills, worsening cough, pain on urination, increased urinary frequency and urgency, and diarrhea. Por favor recoja y tome todos alexander medicamentos karsten lucy se le moreno indicado hasta que cynthia hernandez doctor de shannon primaria. Ya que usted ya est tomando prednisone por mucho tiempo, usted est predispuesta a infecciones, entonces debe hacerse revisar y evaluarse por alguna seal de infecciones, sobre todo fiebre, escalof os, tos que empeore, dolor al orinar, aumento y/o urgencia de la necesidad de orinar o diarrea. GR/Golf Cart Repairer Follow-up Provider: Aidan Lepe MD Follow-up with PCP in: 1 week (you are not diabetic currently but you should avoid high sugar foods in the future) Attending Statement The patient was seen and examined together with Dr. Velazquez on 07-08-16 and I agree with the history, exam and plan as outlined in the note above. copies to: Aidan Lepe MD, Nicholas K DO Jul 08, 2016 20:34 Rubi Rossi MD Jul 10, 2016 07:06
--- NOTE | 2016-07-08 20:40 | PCM.PNMED ---
Subjective Date of Service Jul 08, 2016 Subjective overnight: no acute events today: The patient is ready to be discharged. 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 She will follow up with her PCP next week. She has no further questions. Exam Vital Signs Vital Sign - Last Date Time Temp Pulse Resp B/P Pulse Ox O2 Delivery O2 Flow Rate FiO2 07/08/16 04:16 36.7 65 17 100/59 95 Room Air 07/07/16 11:15 2.00 07/06/16 04:02 60 Intake and Output 07/07/16 07/07/16 07/08/16 Cumulative From/Thru 15:00 23:00 07:00 06/23/16 09:47 - 07/08/16 06:04 Intake Total 636 ml 883 ml 23629 ml Output Total 1000 ml 600 ml 35826 ml Balance -364 ml 283 ml 2961 ml Intake Oral 636 ml 400 ml 9471 ml IV Total 483 ml 03714 ml Tube Feeding 2597 ml Tube Irrigant 776 ml Output Urine Total 1000 ml 600 ml 53317 ml Gastric Drainage Total 100 ml # Voids 3 10 # Bowel Movements 0 2 Exam Gen: General alert and oriented, cooperative in no acute distress on oxygen mask HEENT: Pupils are equally round and reactive to light and accommodation. Extraocular muscles are intact. Sclera are pink and nonicteric. Neck: No lymph nodes are felt head, neck, supraclavicular area, no JVD CV: Heart is regular rate and rhythm without murmur, rubs or gallops PULM: breath sounds clear to auscultation bilaterally and without any wheezing, rales or rhonchi today Abdomen: soft, normoactive bowel sounds, nontender, no organomegaly. : No mercado in place Extremities: no cyanosis edema or clubbing, pulses intact at dorsalis pedis and radial bilaterally Neuro: exam without noticeable deficit. Cranial nerves II through XII tested intact. Skin: no rash or jaundice, no longer diaphoretic Psych: Normal mood and normal affect Lab and Diagnostics Result Diagram: 07/07/1662907/07/1630 X-Rays, CTs and MRIs CT ANGIO CHEST PULMONARY EMBOLISM IMPRESSION: 1. No evidence of pulmonary embolism. 2. Dependent changes are present within the left base as well as a 5 mm groundglass like opacity within the right base, overall nonspecific. Dictated by: Cindy Medley M.D. on 06/25/2016 at 11:36 X-RAY CHEST ONE VIEW, PORTABLE IMPRESSION: Stable chest. Dictated by: Gavin Grover [facility] Interpreted: Arielle Jordan MD on 06/26/2016 at 9 :06 X-RAY CHEST ONE VIEW, PORTABLE IMPRESSION: Acute disease is not appreciated in the upright portable chest. Dictated by: Julián Makrham M.D Assessment & Plan Patient is a 45 year old lad with past medical history significant for 4 admissions over the last 6 years for asthma, with 3-4 prior intubations. Prior to admission she had 5 days with increasing shortness breath and coughing. Her O2 sat is 90-92% on room air, dropping into the 80s with exertion on room air. There has been no fever and the chest x-ray shows no pneumonia. Shortly thereafter patient was requiring increased amounts of oxygen to maintain saturations, and was subsequently intubated. Hospital Day 15 1. Acute hypercapnic and hypoxic respiratory failure, not present on admission. Improved. - Due to asthma exacerbation and possibly viral vs bacterial pneumonia. Not on oxygen at home. - Extubated 3/3, then needed hi-flow O2 until 07/06/16. Today, patient on nasal cannula and tolerating well/. - Dr. Lynch of pulmonology consulted and we appreciate his input. - Continue PT and getting out of bed as tolerated. - Continue prednisone 60 mg and plan for long, slow taper of 10mg weekly. Patient will need close follow up with PCP - Aidan Lepe. - home with albuterol neb 2.5 mg every 2 hours as needed for wheezing and shortness of breath - home with atrovent nebulizer BID WA. - Continue peak flow monitoring. 2. Asthma Exacerbation/Acute Bronchospasm, acute on chronic, present on admission, improved. - Continue prednisone, nebulizers as above in #1. - Continue use of acapella flutter valve to try to avoid mucus plugging. - Will need outpatient follow up closely and likely pulmonology referral. 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 3. Hypokalemia, not present on admission, treated stable - Continue to monitor BMP and replete as needed. 4. History of Mucous Plugging/Lung Collapse. - Continue pulmonary toilet. - Continue guaifenesin 200mg PO every 6 hours PRN cough. 5. History of Prediabetes - It is not clear if this is a steroid/chemical diabetes effect or DM type II. - A1c 5.9. - Correction scale lispro available as needed. - Patient will need outpatient follow up with PCP. 6. Urinary Tract infection, not present on admission, treated - Ceftriaxone started 06/29 for Proteus UTI. Discontinued 07/03 - Acetaminophen for mild pain when necessary. - Bowel regimen Senna and MiraLAX scheduled and PRN. - Antiemetic available PRN. Disposition: Significant improvement with discharge today. Patient will need close follow up with Aidan Lepe (PCP) and likely needs referral to pulmonology for better watermelon harvesting supervisor management. Patient will need assistance with inhaled medication choices for least expensive options available at [facility] pharmacy. GI Prophylaxis: Not indicated VTE Prophylaxis: Sub-Q Enoxaparin VTE Mechanical Devices: Intermittant Pneumatic CD Resuscitation Status: CPR: Attempt Resuscitation Attending Statement The patient was seen and examined together with Dr. Velazquez on 07-08-16 and I agree with the history, exam and plan as outlined in the note above. Rc Velazquez DO Jul 08, 2016 06:59 Rubi Rossi MD Jul 09, 2016 15:20
== END 2016-07-08 17:41 | disposition home or self-care (01) | DRG 951 ==
LOC: SED 09:40 → OSC 15:26 → PCC 23:52 → CCU 06-24 01:22 → PCC 07-02 08:09
PROVIDERS: ADMIT Family Medicine; ATTEND Family Medicine
PROC: 5A1945Z Respiratory Ventilation, 24-96 Consecutive Hours (ICD-10-PCS; principal; 2016-06-24)
PROC: 0BH17EZ Insertion of Endotracheal Airway into Trachea, Via Natural or Artificial Opening (ICD-10-PCS; 2016-06-24)
PROC: 4A033R1 Measurement of Arterial Saturation, Peripheral, Percutaneous Approach (ICD-10-PCS; 2016-06-24)
PROC: 03HY32Z Insertion of Monitoring Device into Upper Artery, Percutaneous Approach (ICD-10-PCS; 2016-06-25)
PROC: 05HM33Z Insertion of Infusion Device into Right Internal Jugular Vein, Percutaneous Approach (ICD-10-PCS; 2016-06-25)
DX: J45.51 Severe persistent asthma with (acute) exacerbation (principal); J96.01 Acute respiratory failure with hypoxia; N39.0 Urinary tract infection, site not specified; B96.4 Proteus (mirabilis) (morganii) as the cause of diseases classified elsewhere; E87.6 Hypokalemia; M79.604 Pain in right leg; R73.03 Prediabetes